=== PATIENT | male | born 1985 | race Caucasian/White ===

== ENCOUNTER 2018-05-24 06:57 | Emergency (ER) | payer MEDICAID, SELFPAY ==
[2018-05-24 06:58] VITALS: BP 105/79; PULSE 95; RESP 16; TEMP 36.2; O2SAT 100; BMI 22.5
--- NOTE | 2018-05-24 07:30 | ED.DEP ---
ED Disposition - Plan for ED Patient: Instructions: ED Sprain Strain Neck Prescriptions: Diazepam [Valium] 2 mg PO TID PRN PRN #10 tablet PRN Reason: Muscle Spasm Referrals: Barry Sellers MD [STAFF PHYSICIAN] -
--- NOTE | 2018-05-24 07:37 | ED.VISSUMM ---
- ER Visit Summary Date of Service: 05/24/18 Chief Complaint: Neck pain History of Present Illness: The patient is a 33 M presenting with right-sided neck pain. He states this has been ongoing for the past 1.5 weeks. He states he woke up with pain in the right side of his neck. He went to [facility] ED and was treated with Toradol and Valium. He was sent home with Naprosyn and a muscle relaxer. He states this is not helping his pain. He has pain that is worse with movement. It occasionally radiates to his right shoulder. Denies numbness or weakness. Denies fever or feeling ill. Denies other complaints. Physical Examination: Vitals are stable. Patient is afebrile. Alert no acute distress. HEENT exam is unremarkable. Neck is supple. No meningismus. Right paraspinal cervical muscle tenderness. No midline tenderness. Lungs are clear and equal bilaterally. Heart is regular rate and rhythm. Extremities are unremarkable. Skin is warm and dry. No focal neurologic deficit. Normal strength and sensation. Remainder of exam is unremarkable. Emergency Department Course and Treatment: Patient declined IM medication. He was given Valium p.o. He is given prescription for Valium. Advised to follow-up with Dr. Sellers avionics systems integration specialist for no doc. Advised return to ED for worsening complaints. Disposition: Discharge home Impression: Neck strain This note was generated with [employer] dictation software. It may contain incorrect words, spelling, and punctuation that were not noted in review of the chart prior to signing ED Disposition - Plan for ED Patient: Instructions: ED Sprain Strain Neck Prescriptions: Diazepam [Valium] 2 mg PO TID PRN PRN #10 tablet PRN Reason: Muscle Spasm Referrals: Barry Sellers MD [STAFF PHYSICIAN] -
--- NOTE | 2018-05-24 07:41 | ED.DCSUM_ITS ---
- ER Visit Summary Date of Service: 05/24/18 Chief Complaint: Neck pain History of Present Illness: The patient is a 33 M presenting with right-sided neck pain. He states this has been ongoing for the past 1.5 weeks. He states he woke up with pain in the right side of his neck. He went to [facility] ED and was treated with Toradol and Valium. He was sent home with Naprosyn and a muscle relaxer. He states this is not helping his pain. He has pain that is worse with movement. It occasionally radiates to his right shoulder. Denies numbness or weakness. Denies fever or feeling ill. Denies other complaints. Physical Examination: Vitals are stable. Patient is afebrile. Alert no acute distress. HEENT exam is unremarkable. Neck is supple. No meningismus. Right paraspinal cervical muscle tenderness. No midline tenderness. Lungs are clear and equal bilaterally. Heart is regular rate and rhythm. Extremities are unremarkable. Skin is warm and dry. No focal neurologic deficit. Normal strength and sensation. Remainder of exam is unremarkable. Emergency Department Course and Treatment: Patient declined IM medication. He was given Valium p.o. He is given prescription for Valium. Advised to follow- up with Dr. Sellers manager of international for no doc. Advised return to ED for worsening complaints. Disposition: Discharge home Impression: Neck strain This note was generated with [email or web address] dictation software. It may contain incorrect words, spelling, and punctuation that were not noted in review of the chart prior to signing ED Disposition - Plan for ED Patient: Instructions: ED Sprain Strain Neck Prescriptions: Diazepam [Valium] 2 mg PO TID PRN PRN #10 tablet PRN Reason: Muscle Spasm Referrals: Barry Sellers MD [STAFF PHYSICIAN] -
[2018-05-24] MEDS: diazePAM 5 MG Tablet PO (07:44)
== END 2018-05-24 08:28 | disposition home or self-care (01) ==
PROVIDERS: Emergency Provider Emergency Medicine
DX: S16.1XXA Strain of muscle, fascia and tendon at neck level, initial encounter (principal); X58.XXXA Exposure to other specified factors, initial encounter; Y93.9 Activity, unspecified; Y92.9 Unspecified place or not applicable; Y99.9 Unspecified external cause status; Z72.0 Tobacco use
CPT/HCPCS: 99283

== ENCOUNTER 2018-05-27 12:10 | Emergency (ER) | payer MEDICAID, SELFPAY ==
[2018-05-27 12:11] VITALS: BP 107/68; PULSE 128; RESP 14; TEMP 36.2; O2SAT 98; BMI 22.5
--- NOTE | 2018-05-27 12:29 | ED.DCSUM_ITS ---
- ER Visit Summary Date of Service: 05/27/18 Chief Complaint: Neck pain History of Present Illness: The patient is a 33 M who presents the emergency department with neck pain. Patient states that about 2 weeks ago he awoke in the morning with his neck feeling stiff. After a few days he went to [facility] was given naproxen and a muscle relaxer. He states that that did not help so he came to [facility] and was given a prescription for Valium. 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 He states that he has been homeless. He states that despite the pain in his neck radiating to his right arm he has been able to play the guitar. As he sits telling me his story he is opening sugar packets with the right hand without difficulty and moving his arms above his head fine. Though he states that it hurts for him to turn his head to the left and right. He notes most of the pain is on the right side of the neck. He denies any fevers. Denies any rashes. He last injected into his arms 4 days ago. Denies any history of heart murmur. Physical Examination: Afebrile vital signs are stable noted heart rate of 128 in triage however the patient states [place]. I took his p ulse myself and was 84. Gen: Well-nourished well-developed Head: Normocephalic atraumatic Eyes: Perrl EOMI ENT: TMs clear no rhinorrhea moist mucous membranes Neck: Supple no lymphadenopathy no JVD complains of tenderness to palpation along the right paracervical muscles. CVS: Regular rate rhythm no murmurs normal S1-S2 Respiratory: No distress clear to auscultation bilaterally chest nontender Abdomen: Soft nontender nondistended normal bowel sounds no masses Back: Nontender Extremity: Nontender no edema Skin: Normal color no rash Neuro: alert orientated ?3 CN II-XII intact normal strength sensation (triceps brachioradialis) reflexes gait cerebellar Psych: Normal affect normal mood Emergency Department Course and Treatment: Patient be started on ibuprofen and Flexeril. I do not think the patient has a epidural abscess. I do not think this is herniated disc given the history and physical exam though if his symptoms do not resolve would be prudent to check. I will refer him to primary care. Impression: 1. Neck muscle spasm This note was generated with [employer] dictation software. It may contain incorrect words, spelling, and punctuation that were not noted in review of the chart prior to signing ED Disposition - Plan for ED Patient: Disposition: Home or Assisted Living Instructions: Torticollis (Wry Neck) Prescriptions: Ibuprofen [Motrin] 800 mg PO TID PRN PRN #20 tab PRN Reason: Pain Cyclobenzaprine [Flexeril] 10 mg PO TID PRN #12 tab PRN Reason: Muscle Spasm Referrals: Arlin Armijo [NON-STAFF] - 1 Week if not improving
[2018-05-27 12:54] VITALS: PULSE 99; RESP 18; O2SAT 98
--- NOTE | 2018-05-27 12:55 | ED.RN ---
PT REQUESTING MEDICAL CLEARANCE FORM FOR [facility] AT DISCHARGE. PT GAVE CONSENT FOR THIS RN TO CALL [facility] AND SPEAK TO STAFF REGARDING MEDICAL CLEARANCE. THIS RN SPOKE WITH DR MAAY AT [facility], SHE STATED PT ONLY NEEDED TO BE PRESCRIBED MEDICATIONS APPROPRIATE FOR PATHWAY HOUSE AND HAVE DIAGNOSIS THAT COULD BE SAFELY MANAGED AT PATHWAY HOUSE. SHE FURTHER STATES NECK MUSCLE SPASM WITH MOTRIN AND FLEXERIL PRESCRIPTIONS ARE APPROPRIATE FOR ADMISSION TO PATHWAY HOUSE. DR MAYA STATES PT SHOULD BE INSTRUCTED TO RETURN TO [facility] WITH DISCHARGE PAPERWORK. ABOVE INFO RELAYED TO PT, HE VOICES UNDERSTANDING, LEFT DEPARTMENT.
== END 2018-05-27 12:59 | disposition home or self-care (01) ==
PROVIDERS: Emergency Provider Emergency Medicine
DX: M62.838 Other muscle spasm (principal); F11.20 Opioid dependence, uncomplicated; Z59.0 Homelessness; Z72.0 Tobacco use
CPT/HCPCS: 99282

== ENCOUNTER 2018-10-15 11:33 | Emergency (ER) | payer SELFPAY ==
[2018-10-15 11:34] VITALS: PULSE 104; RESP 18; TEMP 35.9; O2SAT 92; BMI 19.3
[2018-10-15 11:50] VITALS: BP 120/68; PULSE 100; RESP 18; O2SAT 92
--- NOTE | 2018-10-15 11:53 | US_ITS ---
STUDY: SCROTUM ULTRASOUND REASON FOR EXAM: Male, 33 years old. Left testicular pain and swelling. TECHNIQUE: Ultrasound evaluation of the scrotum was performed with color Doppler and static benitez-scale imaging. COMPARISON: None. FINDINGS: RIGHT TESTICLE INTRATESTICULAR: There is a normal size of the right testicle. The right testicle measures 5.0 cm x 2.9 cm x 2.0 cm. There is a homogenous echotexture. There is normal arterial and normal venous vascularity. There is no demonstrated right testicular mass or cyst. EXTRATESTICULAR: The epididymis is normal in size. The epididymis head measures 1 cm x 1.1 cm. There is normal vascularity of the epididymis. There is no demonstrated epididymal cystic structure. There is no demonstrated hydrocele. There is no demonstrated varicocele. There is no demonstrated extratesticular mass or cyst. LEFT TESTICLE INTRATESTICULAR: There is a normal size of the left testicle. The left testicle measures 4.2 cm x 3.3 cm x 2.6 cm. There is a homogenous echotexture. There is increased arterial and normal venous vascularity. There is no demonstrated left testicular mass or cyst. EXTRATESTICULAR: The epididymis is enlarged. The epididymis head measures 1.3 cm x 1.3 cm. There is increased (hyperemic) vascularity of the epididymis. There is no demonstrated epididymal cystic structure. There is a large hydrocele. There is no demonstrated varicocele. There is no demonstrated extratesticular mass or cyst. US/Testicular with Arterial Flow IMPRESSION: Large sized left hydrocele and findings suggestive of epididymitis. Electronically Signed: Hugo Cummins, at 13:55 EDT , Service support ,
[2018-10-15 12:13] LABS: Color, Urine Yellow (Yellow); Glucose, Dipstick Normal (Normal); Ketone-Dipstick Negative (Negative); Leukocyte Esterase-Dipstick 500 /ul (Negative); Nitrite-Dipstick Negative (Negative); Occult Blood-Urine 10 /ul (Negative); Protein-Dipstick 30 mg/dl (Negative); Urine Clarity Sl. Cloudy (Clear); Urine Urobilinogen 12 mg/dl (Normal)
[2018-10-15 12:14] LABS: Urine Bilirubin Dipstick 1 mg/dL (Negative)
[2018-10-15 12:15] LABS: Bacteria 1+ /hpf (None Seen); Mucous, Urine 1+ /hpf (<or=2+); Red Blood Cells-Urine 0-5 SEEN /hpf (0-5); Squamous Epithelial Cells - UA 0-5 SEEN /hpf (0-5)
[2018-10-15 12:18] LABS: White Blood Cells 50-100 SEEN /hpf (0-5)
[2018-10-15 12:50] LABS: Absolute Lymphocyte Count 0.88 X10^3/ul (0.83-4.51); Basophil# 0.02 X10^3/uL; Basophil% 0.3 % (0-1); Eosinophil# 0.19 X10^3/uL; Eosinophils% 2.5 % (0-5); Hematocrit 41.1 % (40-54); Hemoglobin 13.7 g/dl (13.0-16.5); Lymphocyte # 0.88 X10^3/ul (4.0); Lymphocyte % 11.4 % (19-41); Mean Corp Hgb Conc 33.3 g/gl (32-36); Mean Corpuscular Hgb 29.8 pg (27.0-32.0); Mean Corpuscular Volume 89.3 fL (80-94); Mean Platelet Vol. 9.3 fl (6.2-12.0); Monocyte# 0.61 X10^3/uL; Monocyte% 7.9 % (0-10); Neutrophil # 6.04 X10^3/uL (2.7-7.7); Neutrophil % 77.8 % (47-70); Platelet Count 251 K/mm3 (150-450); RBC Distribution Width CV 11.9 % (11.6-14.6); RBC Distribution Width SD 38.2 fl (35.1-43.9); White Blood Count 7.8 K/mm3 (4.4-11.0)
[2018-10-15] MEDS: 0.9% Normal Saline 1,000 ML 999 ML IV (12:53)
[2018-10-15] MEDS: Ketorolac 30 MG/ML Syringe IV (12:53)
[2018-10-15 12:59] LABS: POSITIVE COUNT NO; POSITIVE DIFFERENTIAL NO; POSITIVE MORPHOLOGY NO
[2018-10-15 13:03] LABS: Anion Gap 8 (5-15); BUN 10 mg/dL (7-18); BUN/Creat Ratio 10.7 RATIO (10-20); Calcium,Total 9.2 mg/dL (8.5-10.1); Chloride 102 mmol/L (98-107); Creatinine, Serum 0.93 mg/dL (0.70-1.30); EST Glomerular Filtration Rate 98 mL/min (>60); Est Glom Filt Rate - Afr Amer 118 mL/min (>60); Estimated Creatinine Clearance 110.24 ml/min; Glucose 80 mg/dL (74-106); Potassium 4.1 mmol/L (3.5-5.1); Sodium Level 141 mmol/L (136-145)
[2018-10-15 13:21] VITALS: BP 120/68; PULSE 100; RESP 18; TEMP 35.9; O2SAT 92
[2018-10-15] MEDS: Doxycycline 100 MG CAPSULE PO (14:15)
--- NOTE | 2018-10-15 14:19 | ED.VISSUMM ---
- ER Visit Summary Date of Service: 10/15/18 Chief Complaint: Testicle pain History of Present Illness: The patient is a 33 M with left testicle pain for 2 days. The pain came on gradually. He noticed testicle swelling. He denies any other symptoms like discharge or trouble urinating. Denies fever or systemic symptoms. He never had problems like this before. Denies trauma. Physical Examination: Afebrile and vital signs unremarkable. Patient is alert and oriented. Exam was chaperoned by the nurse. Patient has left testicular swelling, epididymal swelling, and left-sided scrotal swelling. Diffusely tender to palpation. Test Results: Gonorrhea and committed testing are pending. Labs unremarkable. Urinalysis shows signs of infection. Ultrasound shows large left hydrocele and epididymitis. Emergency Department Course and Treatment: Patient will be treated with ceftriaxone and doxycycline. Anti-inflammatories. Scrotal support. Follow-up with urology. Treatment Plan: As above Disposition: Discharge Impression: 1. Left hydrocele 2. Left epididymitis This note was generated with [employer] dictation software. It may contain incorrect words, spelling, and punctuation that were not noted in review of the chart prior to signing ED Disposition - Plan for ED Patient: Referrals: Care Physician,No Primary [Primary Care Provider] -
--- NOTE | 2018-10-15 14:21 | ED.DEP ---
ED Disposition - Plan for ED Patient: Instructions: Epididymitis Prescriptions: Doxycycline 100 mg PO BID 10 Days #20 cap Prescription Printed Naproxen [Naprosyn] 500 mg PO BID PRN #20 tab Prescription Printed Referrals: Ramesh Flores MD [STAFF PHYSICIAN] - Duran Cabrera MD [NON-STAFF] - As Needed
[2018-10-15 15:03] VITALS: BP 124/62; PULSE 88; RESP 18
[2018-10-15 15:03] LABS: Chlamydia Trachomatis by PCR POSITIVE (Negative); Neisserai gonorrhoeae by PCR Negative (Negative); Probe Check PASS; Sample Adequacy Control PASS; Specimen Processing Control PASS
== END 2018-10-15 15:13 ==
PROVIDERS: Emergency Provider Emergency Medicine
DX: N43.3 Hydrocele, unspecified (principal); N45.1 Epididymitis; Z72.0 Tobacco use
CPT/HCPCS: 76870; 80048; 81001; 85025; 87491; 87591; 93976; 96361; 96372; 96374; 99285; J7030; A4216; J2405

== ENCOUNTER 2019-01-05 17:15 | Emergency (ER) | payer MEDICAID, SELFPAY ==
[2019-01-05 17:15] VITALS: BP 104/77; PULSE 122; RESP 30; TEMP 38.1; O2SAT 95; BMI 24.4
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
--- NOTE | 2019-01-05 18:46 | ED.RN ---
PT REFUSES D/C VS. REPORTS NO FURTHER QUESTIONS. VERBALIZES UNDERSTANDING OF AMA PAPERS.
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
== END 2019-01-05 18:45 | disposition left against medical advice (07) ==
LOC: ED 18:00
PROVIDERS: Emergency Provider Emergency Medicine
DX: F19.10 Other psychoactive substance abuse, uncomplicated (principal); Z53.29 Procedure and treatment not carried out because of patient's decision for other reasons; Z72.0 Tobacco use
CPT/HCPCS: 99284

== ENCOUNTER 2019-02-08 01:14 | Observation (INO) | payer MEDICAID, SELFPAY ==
[2019-02-08 01:15] VITALS: BP 121/80; PULSE 102; RESP 18; TEMP 36.4; O2SAT 100
--- NOTE | 2019-02-08 01:31 | ED.VISSUMM ---
- ER Visit Summary Date of Service: 02/08/19 Chief Complaint: Requesting detox History of Present Illness: The patient is a 33 M history of drug abuse including IV methamphetamines, heroin and fentanyl. Patient states never had inpatient detox before. The last time he tried to detox himself using Suboxone he bought on the street. States his last illicit drug use was Friday morning. States he started to feel like he is going through withdrawal. He denies any fever or chills. Physical Examination: Young male no acute distress vital signs stable afebrile. Initial blood pressure is 121/80. He does not look septic or toxic. He is in no acute distress. HEENT exam pupils are unreactive light. Right eye watering. Posterior pharynx unremarkable. Neck nontender. No lymphadenopathy. Lungs clear to auscultation bilaterally. Heart regular rhythm rate about 100 no murmur. Chest were nontender. Abdomen soft nontender. Back nontender. Patient is moving all 4 extremities. Neurovascularly intact. He has checked in both antecubital areas. No abscesses. No cellulitis. He is awake and alert. Test Results: None Emergency Department Course and Treatment: Patient requesting detox. Treatment Plan: [] Disposition: Admission for detox Impression: Requesting detox History of IV fentanyl, heroin and methamphetamine abuse This note was generated with [employer] dictation software. It may contain incorrect words, spelling, and punctuation that were not noted in review of the chart prior to signing ED Disposition - Plan for ED Patient: Referrals: Care Physician,No Primary [Primary Care Provider] -
--- NOTE | 2019-02-08 02:01 | ED.RN ---
ATTEMPTED TO CONTACT CORRECTIONAL THERAPY DIRECTOR FOR M-S3 TO SEE IF THIS PT CAN COME UP, NO REPLY GIVEN. 

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
[2019-02-08 02:22] VITALS: BMI 19.5
[2019-02-08 02:34] VITALS: BP 121/76; PULSE 86; RESP 18; TEMP 37; O2SAT 97
[2019-02-08] MEDS: Pramipexole Di-HCl 0.25 MG Tablet PO (02:58)
[2019-02-08] MEDS: Acetaminophen 325 MG Tablet 650 MG PO (02:58)
[2019-02-08] MEDS: Buprenorphine HCl 2 MG TAB.SUBL SL ×3 (02:58→19:01)
[2019-02-08] MEDS: Methocarbamol 750 MG Tablet PO (02:58)
[2019-02-08] MEDS: hydrOXYzine PAM 25 MG Capsule 50 MG PO (02:58)
[2019-02-08] MEDS: cloNIDine HCl 0.1 MG Tablet PO ×3 (02:58→22:35)
[2019-02-08 03:12] VITALS: PULSE 86; RESP 18; O2SAT 97
--- NOTE | 2019-02-08 07:36 | PN_ITS ---
Patient Problems: Active and Suspected Problems (Last Updated 02/08/19 @ 02:50 by Sushil Zhang MD) Polysubstance (including opioids) dependence with physiological dependence (Acute) Withdrawal from opioids (Acute) Methamphetamine dependence (Acute) Subjective: The patient is a 33-year-old homeless male with a past medical history of polysubstance abuse including heroin, fentanyl and methamphetamine and tobacco dependence who presented to the ED at [facility] on 02/08/2019 stating he felt like he was in withdrawal. His last use of intravenous opiates was 24 hours prior to admission. He had never been in a detox program or had counseling for his illicit drug use and he was requesting admission for medical stabilization for acute opiate withdrawal. Physical exam was remarkable for dried blood in both nares, a scratch on his nose and injection of both conjunctiva, right greater than left. There was watery discharge from the right eye. He was admitted to the hospital and the protocol for acute opiate withdrawal was initiated. He is very sleepy today and keeps nodding off while I talk with him. He does not recall ever having a hepatitis panel or HIV. No significant weight loss recently. Denies cough or diarrhea. No nausea, abdominal pain, diarrhea today. He is having some sweats. Does not have a plan for DC. He is homeless. - Physical Exam Vitals/I&O's: Vital Signs Temp Pulse Resp BP Pulse Ox 98.6 F 86 18 121/76 H 97 02/08/19 02:34 02/08/19 03:12 02/08/19 03:12 02/08/19 02:34 02/08/19 03:12 Oxygen Delivery Method Room Air Weight: 156 lb 1.396 oz Body Mass Index (BMI) 19.5 Intake and Output for Last 24 Hours 02/07/19 02/07/19 02/08/19 00:59 23:59 23:59 Intake Total 440 / 440 Balance 440 / 440 General: Cooperative, No apparent distress, Well developed, Lethargic HEENT: Atraumatic, PERRLA, EOMI, Normocephalic Oral: Dry Mucosa Neck: Supple, Trachea Midline Lungs: Clear to auscultation Cardiovascular: Regular rate, Regular Rhythm, Normal S1, Normal S2, No murmurs, No rub noted, No Gallop Abdomen: Bowel Sounds Present, Soft, Non Tender, Non-Distended, - - No guarding with palpation. No masses. Extremities: No clubbing, No cyanosis, No edema Skin: No rashes, No breakdown, - - no evidence of abscess Musculoskeletal: No Muscle Wasting Neurological: Cranial nerves II-XII grossly intact, Neuro grossly intact Psych/Mental Status: Normal Affect, Appropriate Current Medications Acetaminophen (Tylenol) 650 mg PO Q6H PRN PRN PRN Reason: Pain Score 1-10/Temp > 100.7 F Last Admin: 02/08/19 02:58 Dose: 650 mg Documented by: Buprenorphine HCl (Buprenorphine Hcl) 4 mg SL Q8H DI; Taper Stop: 02/11/19 06:44 Last Admin: 02/08/19 02:58 Dose: 4 mg Documented by: Clonidine (Catapres) 0.1 mg PO Q2H PRN PRN PRN Reason: Hot/Cold Sweats or Anxiety Last Admin: 02/08/19 02:58 Dose: 0.1 mg Documented by: Dextrose (D50w Syringe) 0 gm IV X1 PRN; Protocol PRN Reason: Hypoglycemia Dicyclomine HCl (Bentyl) 20 mg PO Q6H PRN PRN PRN Reason: Abdomnial Discomfort Glucagon () 1 mg IM .X1 PRN PRN Reason: Hypoglycemia Hydroxyzine HCl (Vistaril Vial) 50 mg IM Q6H PRN PRN PRN Reason: Breakthrough Anxiety Hydroxyzine Pamoate (Vistaril Pamoate Capsule) 50 mg PO Q6H PRN PRN PRN Reason: Mild Anxiety Last Admin: 02/08/19 02:58 Dose: 50 mg Documented by: Sodium Chloride () 250 mls @ 15 mls/hr IV .[id number] PRN PRN Reason: Saline Flush Methocarbamol (Methocarbamol) 750 mg PO Q6H PRN PRN PRN Reason: Muscle Aches Last Admin: 02/08/19 02:58 Dose: 750 mg Documented by: Nutritional Formula (Lactose Free) (Ensure Enlive) 120 ml PO 4X/DAY [facility] Ondansetron HCl (Zofran) 4 mg IV Q8H PRN PRN PRN Reason: NAUSEA/VOMITING Pramipexole Dihydrochloride (Mirapex) 0.25 mg PO Q12H PRN PRN PRN Reason: Restless Legs Last Admin: 02/08/19 02:58 Dose: 0.25 mg Documented by: Senna/Docusate Sodium (Senokot-S, Hanna-Colace) 2 tablet PO BID PRN PRN PRN Reason: Constipation Sodium Chloride () 10 - 40 ml IV UD PRN PRN Reason: SALINE FLUSH Medical Necessity - Tobacco Use Smoking Status: Current every day smoker Tobacco Use: Cigarettes, - Assessment/Plan All Active Problems (Last Updated 02/08/19 @ 02:50 by Sushil Zhang MD) Polysubstance (including opioids) dependence with physiological dependence (Acute) Withdrawal from opioids (Acute) Methamphetamine dependence (Acute) Impressions 1. Acute opiate withdrawal. Continue protocol. Pt is currently stable 2. polysubstance abuse - IV Heroin, Fentanyl and methamphetamine 3. tobacco dependence 4. mildly increased transaminases -HIV is negative and the hepatitis panel is pending. When he is more alert and better able to stay awake will discuss options for tx of Opiate abuse.
[2019-02-08 08:27] LABS: Hemoglobin 13.4 g/dL (13.0-16.5); Mean Corp Hgb Conc 33.5 g/dL (32-36); Mean Corpuscular Hgb 31.2 pg (27.0-32.0); Mean Corpuscular Volume 93.2 fL (80-94); Mean Platelet Vol. 10.3 fl (6.2-12.0); Platelet Count 238 K/mm3 (150-450); RBC Distribution Width CV 11.9 % (11.6-14.6); RBC Distribution Width SD 40.4 fl (35.1-43.9); Red Blood Count 4.29 M/mm3 (4.6-6.2)
[2019-02-08 08:40] VITALS: BP 108/53; PULSE 50; RESP 16; TEMP 36.6; O2SAT 100
[2019-02-08 08:53] LABS: ALB/GLOB Ratio 0.7 RATIO (0.9-2.4); AST(SGOT) 38 U/L (15-37); Alanine Aminotransfer ALT/SGPT 63 U/L (16-61); Albumin, Serum 2.8 g/dL (3.2-5.0); Alkaline Phosphatase 85 U/L (45-117); Anion Gap 7 (5-15); BUN 9 mg/dL (7-18); BUN/Creat Ratio 10.6 RATIO (10-20); Calcium,Total 8.6 mg/dL (8.5-10.1); Chloride 105 mmol/L (98-107); Creatinine, Serum 0.85 mg/dL (0.70-1.30); EST Glomerular Filtration Rate 108 mL/min (>60); Est Glom Filt Rate - Afr Amer 131 mL/min (>60); Estimated Creatinine Clearance 121.47 ml/min; Globulin 4.1 g/dL (2.2-4.2); Glucose 96 mg/dL (74-106); Phosphorus 4.9 mg/dL (2.5-4.9); Potassium 3.8 mmol/L (3.5-5.1); Protein, Total 6.9 g/dL (6.4-8.2); Sodium Level 140 mmol/L (136-145)
[2019-02-08 09:47] LABS: HIV - WCH Non-Reactive (Nonreactive)
--- NOTE | 2019-02-08 10:38 | CASEMGMT ---
Addendum entered by Shirley Head 02/08/19 14:16: SW again attempted to speak with pt. Pt still sleepy and couldn't keep eyes open during conversation. Pt did state he has been thinking about going to counseling. SW informed pt that this worker will follow up with pt tomorrow to discuss treatment options. SW provided pt with packet of treatment options. SW to follow up with pt tomorrow. Original Note: Social Work Note Per notes, pt is sleepy today and kept nodding off during conversation with physician. SW attempted to meet with pt. Pt is soundly sleeping, didn't awake when this worker entered the room. SW will meet with pt to discuss treatment options once pt is more alert and awake. Shirley Head WARM IN WORKER, PRODUCT MARKETING CONSULTANT
[2019-02-08 13:34] VITALS: BP 108/58; PULSE 55; RESP 16; TEMP 36.6; O2SAT 97
[2019-02-08 23:00] VITALS: BP 100/62; PULSE 68; RESP 18; TEMP 36.9; O2SAT 96
[2019-02-09] MEDS: Buprenorphine HCl 2 MG TAB.SUBL SL ×3 (02:43→17:56)
[2019-02-09 02:45] VITALS: BP 100/57; PULSE 58; RESP 20; TEMP 37.4; O2SAT 95
[2019-02-09 05:06] LABS: HEPATITIS B SURFACE AG Negative (Negative); Hepatitis A AB, Total Negative (Negative); Hepatitis A IgM Antibody Negative (Negative); Hepatitis B Core AB IgM Negative (Negative); Hepatitis C Ab >11.0 s/co ratio (0.0-0.9)
[2019-02-09 07:39] VITALS: BP 102/54; PULSE 84; RESP 16; TEMP 37.2; O2SAT 98
[2019-02-09 08:19] LABS: Hep B Surface Antibodies Reactive (.)
[2019-02-09 08:21] LABS: Hepatitis B Core Ab Total Positive (Negative)
--- NOTE | 2019-02-09 09:56 | CASEMGMT ---
Addendum entered by Shirley Head 02/09/19 13:12: SW met with pt. Pt is more alert now and able to hold a conversation with this worker. Pt states that he is doing better than yesterday. SW asked pt if he had chance to review list of treatment facilities. Pt states I want to review the list more. Pt states that he hopes to get out of [facility]. Pt states that he is homeless and that he has been to [facility] before but is not able to return. SW informed pt that if he decides on an agency and they need clinicals faxed to let this worker know and this worker can fax clinicals. Pt states understanding, again states that he would like to review list of treatment options. Original Note: Social Work Note SW attempted to meet with pt to discuss discharge plans. Pt is soundly sleeping and didn't wake up when this worker entered pt's room. SW will attempt to speak with pt later today. Shirley Head EXPERIMENTAL DISPLAY BUILDER, ENVIRONMENTAL SERVICES ATTENDANT
[2019-02-09] MEDS: cloNIDine HCl 0.1 MG Tablet PO (13:58)
[2019-02-09 14:00] VITALS: BP 115/66; PULSE 73; RESP 16; TEMP 37.2; O2SAT 95
--- NOTE | 2019-02-09 18:37 | PCM.PROGNOTE ---
Patient Problems: Active and Suspected Problems (Last Updated 02/08/19 @ 02:50 by Sushil Zhang MD) Polysubstance (including opioids) dependence with physiological dependence (Acute) Withdrawal from opioids (Acute) Methamphetamine dependence (Acute) Subjective: All events of the past 24 hours been reviewed. Afebrile. Vital signs stable. He is 95 to 98% saturated on room air. Hepatitis panel is positive for hepatitis B core total antibody but negative for hepatitis B core IgM antibody. Hepatitis C antibody is greater than 11. Hepatitis A was negative. Doing much better today. He still complains of some anxiety but has had no nausea, vomiting, diarrhea, abdominal pain. He is much more alert today and able to converse with me. - Physical Exam Vitals/I&O's: Vital Signs Temp Pulse Resp BP Pulse Ox 99 F 73 16 115/66 95 02/09/19 14:00 02/09/19 14:00 02/09/19 14:00 02/09/19 14:00 02/09/19 14:00 Oxygen Delivery Method Room Air Weight: 156 lb 1.396 oz Body Mass Index (BMI) 19.5 Intake and Output for Last 24 Hours 02/07/19 02/08/19 02/09/19 23:59 23:59 23:59 Intake Total 440 / 940 1949 Balance 440 / 940 1949 General: Alert, Oriented x3, Cooperative, No apparent distress Neck: Supple, Trachea Midline Lungs: Clear to auscultation Cardiovascular: Regular rate, Regular Rhythm, Normal S1, Normal S2, No murmurs, No Gallop Abdomen: Bowel Sounds Present, Soft, Non Tender, Non-Distended Skin: No rashes Psych/Mental Status: Normal Affect, Appropriate Laboratory Results 02/08/19 08:10: Hepatitis A IgM Ab Negative, Hepatitis A Ab Total Negative, Hep Bs Antigen Negative, Hep B Core Total Ab Positive H, Hep B Core IgM Ab Negative, Hepatitis C Ab Confirm >11.0 H Current Medications Acetaminophen (Tylenol) 650 mg PO Q6H PRN PRN PRN Reason: Pain Score 1-10/Temp > 100.7 F Last Admin: 02/08/19 02:58 Dose: 650 mg Documented by: Buprenorphine HCl (Buprenorphine Hcl) 2 mg SL Q8H DI; Taper Stop: 02/11/19 06:44 Last Admin: 02/09/19 17:56 Dose: 2 mg Documented by: Clonidine (Catapres) 0.1 mg PO Q2H PRN PRN PRN Reason: Hot/Cold Sweats or Anxiety Last Admin: 02/09/19 13:58 Dose: 0.1 mg Documented by: Dextrose (D50w Syringe) 0 gm IV X1 PRN; Protocol PRN Reason: Hypoglycemia Dicyclomine HCl (Bentyl) 20 mg PO Q6H PRN PRN PRN Reason: Abdomnial Discomfort Glucagon () 1 mg IM .X1 PRN PRN Reason: Hypoglycemia Hydroxyzine HCl (Vistaril Vial) 50 mg IM Q6H PRN PRN PRN Reason: Breakthrough Anxiety Hydroxyzine Pamoate (Vistaril Pamoate Capsule) 50 mg PO Q6H PRN PRN PRN Reason: Mild Anxiety Last Admin: 02/08/19 02:58 Dose: 50 mg Documented by: Sodium Chloride () 250 mls @ 15 mls/hr IV .[id number] PRN PRN Reason: Saline Flush Methocarbamol (Methocarbamol) 750 mg PO Q6H PRN PRN PRN Reason: Muscle Aches Last Admin: 02/08/19 02:58 Dose: 750 mg Documented by: Nutritional Formula (Lactose Free) (Ensure Enlive) 120 ml PO 4X/DAY DI Last Admin: 02/09/19 17:19 Dose: 120 ml Documented by: Ondansetron HCl (Zofran) 4 mg IV Q8H PRN PRN PRN Reason: NAUSEA/VOMITING Pramipexole Dihydrochloride (Mirapex) 0.25 mg PO Q12H PRN PRN PRN Reason: Restless Legs Last Admin: 02/08/19 02:58 Dose: 0.25 mg Documented by: Senna/Docusate Sodium (Senokot-S, Hanna-Colace) 2 tablet PO BID PRN PRN PRN Reason: Constipation Sodium Chloride () 10 - 40 ml IV UD PRN PRN Reason: SALINE FLUSH Medical Necessity - Tobacco Use Smoking Status: Current every day smoker Tobacco Use: Cigarettes, - Assessment/Plan All Active Problems (Last Updated 02/08/19 @ 02:50 by Sushil Zhang MD) Polysubstance (including opioids) dependence with physiological dependence (Acute) Withdrawal from opioids (Acute) Methamphetamine dependence (Acute) Impressions 1. Acute opiate withdrawal. Continue protocol. Pt is currently stable and much more alert and able to converse with me today. 2. polysubstance abuse - IV Heroin, Fentanyl and methamphetamine 3. tobacco dependence - smoking cessation advised 4. mildly increased transaminases -HIV is negative and the hepatitis panel + for hep B and Hep C continue the opiate withdrawal protocol. He was given a list of inpt and OP drug rehab programs to review. The patient was informed of his positive hep B and positive hep C lab tests. He was informed that he will need to demonstrate that he has been clean and sober for at least 6 months prior to being treated with antivirals. I made him aware today that the best chance he has for excess full drug rehab is to go for an inpatient program. He is considering his options and will review the list of local programs for drug rehabilitation tonight. Will meet with him of the social insurance administrator again in the morning. He was told that hepatitis B and hepatitis C are both transmitted in blood products and through sex. He was advised to always use condoms and to inform his sexual partners that he is positive for hep C and hep B. Code Visit Inpatient E&M: 27508 Subs Hosp L2
[2019-02-09 20:05] VITALS: BP 115/66; PULSE 73; RESP 16; TEMP 37.2; O2SAT 95
[2019-02-09 22:45] VITALS: BP 95/64; PULSE 65; RESP 16; TEMP 37.1; O2SAT 95
[2019-02-10 04:45] VITALS: BP 95/63; PULSE 69; RESP 16; TEMP 36.7; O2SAT 93
[2019-02-10] MEDS: Buprenorphine HCl 2 MG TAB.SUBL SL ×2 (06:34→17:56)
[2019-02-10 07:38] VITALS: O2SAT 91
--- NOTE | 2019-02-10 07:53 | PN_ITS ---
Patient Problems: Active and Suspected Problems (Last Updated 02/08/19 @ 02:50 by Sushil Zhang MD) Polysubstance (including opioids) dependence with physiological dependence (Acute) Withdrawal from opioids (Acute) Methamphetamine dependence (Acute) Subjective: Afebrile, vital signs stable He is ill tempered and when I told him he would be discharged tomorrow for intake at [facility] he became angry and stated that that does not mean they would take me........I told him we have no control over what [facility] does.......apparently he was there in the past and there were problems. He did not review the list of rehab options given to him by the social media director yesterday so the SW had to call places for him. He takes no responsibility for himself. He has not been out of bed since he got here and every time I enter his room he is sleeping. He told the he is not interested in a [facility] based program. He is also not interested in making phone calls for himself. Many of the rehab facilities say the pt must call for himself. [facility] will do a phone call with the patient at 10 AM in the morning but they are not sure that they will take him in their program since there have been problems with this pt in the past. If he is discharged prior to 10 AM he can go strqight to [facility] and intake.....no guarantee he will be accepted to their program. - Physical Exam Vitals/I&O's: Vital Signs Temp Pulse Resp BP Pulse Ox 98.1 F 69 16 95/63 93 02/10/19 04:45 02/10/19 04:45 02/10/19 04:45 02/10/19 04:45 02/10/19 04:45 Oxygen Delivery Method Room Air Weight: 156 lb 1.396 oz Body Mass Index (BMI) 19.5 Intake and Output for Last 24 Hours 02/08/19 02/09/19 02/10/19 23:59 23:59 23:59 Intake Total 440 / 940 1950 / 2350 600 / 600 Balance 440 / 940 1950 / 2350 600 / 600 General: - - Sleeping when I entered his room and I called his name and turned on the light and he was quite angry that I turned on the light. Tells me that he is sleepy and somewhat shaky. HEENT: Atraumatic, PERRLA Oral: Moist Mucosa Neck: Supple Lungs: Clear to auscultation Cardiovascular: Regular rate, Regular Rhythm Abdomen: Bowel Sounds Present, Soft, Non-Distended Extremities: No edema Skin: - - he is sweaty. Neurological: Cranial nerves II-XII grossly intact, Neuro grossly intact Psych/Mental Status: - - rude, inappropriate, not motivated to make any phone calls to help himself Laboratory Results 02/08/19 08:10: Hepatitis A IgM Ab Negative, Hepatitis A Ab Total Negative, Hep Bs Antigen Negative, Hep B Core Total Ab Positive H, Hep B Core IgM Ab Negative, Hepatitis C Ab Confirm >11.0 H Current Medications Acetaminophen (Tylenol) 650 mg PO Q6H PRN PRN PRN Reason: Pain Score 1-10/Temp > 100.7 F Last Admin: 02/08/19 02:58 Dose: 650 mg Documented by: Buprenorphine HCl (Buprenorphine Hcl) 2 mg SL Q12H DI; Taper Stop: 02/11/19 06:44 Last Admin: 02/10/19 06:34 Dose: 2 mg Documented by: Clonidine (Catapres) 0.1 mg PO Q2H PRN PRN PRN Reason: Hot/Cold Sweats or Anxiety Last Admin: 02/09/19 13:58 Dose: 0.1 mg Documented by: Dextrose (D50w Syringe) 0 gm IV X1 PRN; Protocol PRN Reason: Hypoglycemia Dicyclomine HCl (Bentyl) 20 mg PO Q6H PRN PRN PRN Reason: Abdomnial Discomfort Glucagon () 1 mg IM .X1 PRN PRN Reason: Hypoglycemia Hydroxyzine HCl (Vistaril Vial) 50 mg IM Q6H PRN PRN PRN Reason: Breakthrough Anxiety Hydroxyzine Pamoate (Vistaril Pamoate Capsule) 50 mg PO Q6H PRN PRN PRN Reason: Mild Anxiety Last Admin: 02/08/19 02:58 Dose: 50 mg Documented by: Sodium Chloride () 250 mls @ 15 mls/hr IV .[id number] PRN PRN Reason: Saline Flush Methocarbamol (Methocarbamol) 750 mg PO Q6H PRN PRN PRN Reason: Muscle Aches Last Admin: 02/08/19 02:58 Dose: 750 mg Documented by: Nutritional Formula (Lactose Free) (Ensure Enlive) 120 ml PO 4X/DAY DI Last Admin: 02/09/19 22:45 Dose: 120 ml Documented by: Ondansetron HCl (Zofran) 4 mg IV Q8H PRN PRN PRN Reason: NAUSEA/VOMITING Pramipexole Dihydrochloride (Mirapex) 0.25 mg PO Q12H PRN PRN PRN Reason: Restless Legs Last Admin: 02/08/19 02:58 Dose: 0.25 mg Documented by: Senna/Docusate Sodium (Senokot-S, Hanna-Colace) 2 tablet PO BID PRN PRN PRN Reason: Constipation Sodium Chloride () 10 - 40 ml IV UD PRN PRN Reason: SALINE FLUSH Medical Necessity - Tobacco Use Smoking Status: Current every day smoker Tobacco Use: Cigarettes, - Assessment/Plan All Active Problems (Last Updated 02/08/19 @ 02:50 by Sushil Zhang MD) Polysubstance (including opioids) dependence with physiological dependence (Acute) Withdrawal from opioids (Acute) Methamphetamine dependence (Acute) Impressions 1. Acute opiate withdrawal. Continue protocol. He was much more alert and conversant on 02/09/2019. Today he is sleepy, rude, grumpy and inappropriate.. 2. polysubstance abuse - IV Heroin, Fentanyl and methamphetamine 3. tobacco dependence - smoking cessation advised 4. mildly increased transaminases -HIV is negative and the hepatitis panel + for hep B and Hep C continue the opiate withdrawal protocol. He was given a list of inpt and OP drug rehab programs to review. He did not review the list and he mad no phone calls. The SW has been doing all the phone calls for him Plan on phone call with [facility] tomorrow at 10 AM so they can decide whether they will take him again given the problems with him at [facility] in the past. suboxone taper will be up tomorrow. If he has taken no steps to make phone calls to get himself on a waiting list and not willing to go to inpt facilities that will take him and his insurance will need to DC. ? why he is less laert and more sleepy today.....also more sweaty? Code Visit Inpatient E&M: 84395 Subs Hosp L2
[2019-02-10 08:52] VITALS: BP 107/75; PULSE 95; RESP 16; TEMP 36.9; O2SAT 94
--- NOTE | 2019-02-10 10:02 | NURSING ---
Pt moved from room 309 to provide room for surgery rooms needed form [facility]-
--- NOTE | 2019-02-10 10:54 | CASEMGMT ---
SW spoke w/pt in room in regard to discharge plan and whether or not he has reviewed the list given to him by the SW yesterday of programs for substance abuse. Pt states he has been sleeping a lot and sweating a lot, has not had a chance to review the list. Pt is open to this SW calling places for him to check on bed availability. SW did reiterate that unfortunately there is no guarantee of finding a bed, but SW will look into it for him. SW spoke w/pt about his substance abuse. Pt states uses fentanyl, amphetamines, heroin and marijuana. Pt states last used about two days ago. Pt denies having any formal mental health diagnoses, but admits to feeling down. Pt is homeless, has been homeless for a couple years, pt was not able to give SW any more specific time line. In regard to past treatment for substance abuse, pt was in [facility] in May but once left had no place to go and has been living on the streets. Pt uses his grandmother's address for a mailing address but does not stay there. Pt has nobody who he identifies as a support to him. SW explained will make some calls and if there are any beds available then SW will likely need to put pt in touch with the facility. Pt states understanding. SW called: 1. [facility], they do not take pt's insurance 2. [facility], message left 3. [facility] [place], no beds for 1-2 weeks 4. [facility], no male bed availability 5. [facility], message left 6. [facility], they do not offer residential, only detox and IOP 7. [facility]--directed to their inpt residence [facility] 8. [facility], message left 9. [facility], they only take [facility] residents 10. [facility], do not take Medicaid [facility]. [facility] [place], message left SW learned from [facility] 12. [facility] may have a bed, it is in [place]. SW asked pt, he is not interested in [facility]. SW let pt know that SW has called 11 places, waiting for a few calls back but have gotten some no's already due to bed availability, etc. Pt states understanding. SW will continue to try to find a place for pt to go at discharge. DAKOTA Castañeda
--- NOTE | 2019-02-10 11:34 | CASEMGMT ---
Addendum entered by Tana Lim 02/10/19 12:10: SW called [facility], initial information taken and Thomas Wills is to call SW back for further information. DAKOTA Castañeda Addendum entered by Tana Lim 02/10/19 12:01: SW received call back from Theresa at . She states that the patients do not detox long enough here so pt would need to go into their detox initially, and then to the residential program. She states they will not have any availability in their detox until the weekend, advised to call their sister facility, [facility]. SW called 17. [facility]. Though they have openings in the detox, they have no availability in their residential program. JESUS called Theresa at [facility], left a message and faxed clinical for her review, to see if they would take pt, and to let SW know exactly about bed availability. JESUS will continue to follow. DAKOTA Castañeda Original Note: JESUS called [facility]. [facility], message left for Sia to call this SW back with any options she may be aware of for pt. 14. [facility], they do not take [facility] for his type of detox, insurance will not cover it. 15. [facility], there is a two week wait and pt would need to call himself 16. [facility], there is a 70 person wait list and pt would need to call himself JESUS still waiting for calls back, will give pt information facilities with wait lists and numbers to call if he would like to be put on the list. DAKOTA Castañeda
[2019-02-10 13:36] VITALS: BP 158/139; PULSE 97; RESP 18; TEMP 36.7; O2SAT 96
--- NOTE | 2019-02-10 13:38 | CASEMGMT ---
Sia from called this SW back, she states that they actually have a couple of beds in [facility]. SW explained will speak w/pt, he has been to [facility] in the past and initially had said he did not want to stay in [facility]. SW spoke w/pt, inquired about returning to [facility]. Pt states that things did not end well there. Upon further discussion however, if they have an opening and would take pt back he states would actually return. SW explained will call, he signed a consent form for SW to speak w/ [facility] in regard to pt. SW explained will let him know though what [facility] says, though it may not be until tomorrow. Pt states understanding. SW also gave pt a list of three places, [facility], [facility], and [facility]. SW encouraged him to call these facilities as they all have wait lists, to get his name on the list. SW offered to fax clinicals to [facility], pt wants to wait on that, as he wants to first see if [facility] will take him back. SW let him know a referral was sent to [facility], and SW is waiting to hear back from them as well. Pt states understanding. SW called [facility], faxed release, and spoke again w/Sia in regard to pt. She states she will need to bring this pt to the team and if they will reconsider taking him again will need to do an assessment via phone. This SW is leaving shortly, SW gave her SW Shirley Head' number to call after this SW leaves, to get in touch w/pt. JESUS let Shirley know via voice mail she may get a message, and will follow up w/pt tomorrow. DAKOTA Castañeda
[2019-02-10] MEDS: Acetaminophen 325 MG Tablet 650 MG PO (13:40)
[2019-02-10] MEDS: cloNIDine HCl 0.1 MG Tablet PO (13:40)
[2019-02-10] MEDS: hydrOXYzine PAM 25 MG Capsule 50 MG PO ×2 (13:40→20:57)
--- NOTE | 2019-02-10 15:07 | CASEMGMT ---
Addendum entered by Jennifer Davis 02/10/19 17:07: PATIENT UPDATED ON PLAN FOR ASSESSMENT WITH [facility] TOMORROW. Original Note: Social Work Note SW received call from Sia ([phone]) at [facility] stating they will have a counselor available tomorrow at 10:00am to complete phone interview with pt. JESUS spoke with physician who states pt will be medically cleared for discharge tomorrow. JESUS updated Sia that discharge is tomorrow. Sia states that they don't take admissions after 1:00pm. Sia confirms that she will have a counselor available tomorrow at 10:00am to complete phone interview but states if pt is discharged before 10:00am pt can go straight to [facility] from [facility] to be assessed. JESUS updated Sia that Tana DUNCAN is back tomorrow morning at 8:00am and this worker will update her and then have Tana call Sia FLEMINGP. Sia asked for H+P to be faxed to [phone]. JESUS faxed clinicals to [facility]. Tana CONDES has left for the day but this worker will update JESUS on floor tomorrow. Plan: Pt is to be assessed by [facility] tomorrow. If pt is discharged before 10:00am pt can go straight to [facility] to be assessed, if pt is still at [facility] at 10:00am a counselor from [facility] will be available to asses pt via phone. Shirley Head INSURANCE UNDERWRITER SALES, VICE PRESIDENT OF SOFTWARE ENGINEERING
[2019-02-10 17:29] VITALS: BP 120/50; PULSE 64; RESP 16; TEMP 36.8; O2SAT 97
[2019-02-10 20:55] VITALS: BP 126/74; PULSE 60; RESP 16; TEMP 36.9; O2SAT 94
[2019-02-11 03:25] VITALS: BP 101/60; PULSE 57; RESP 16; TEMP 36.7; O2SAT 95
[2019-02-11 06:58] VITALS: O2SAT 92
--- NOTE | 2019-02-11 09:14 | CASEMGMT ---
Addendum entered by Tana Lim 02/11/19 10:07: SW called [facility], they cannot be here for another 20 minutes. SW called [facility] and let Sia know, she states understanding. DAKOTA Castañeda Addendum entered by Tana Lim 02/11/19 09:25: Physician wrote for pt's discharge. SW spoke w/med surg manager strategic sourcing Roslyn, she is agreeable to sending pt to [facility] on a taxi voucher. SW called [facility], they will be here in 30-45 minutes, will call nurse's station when the taxi is here. SW let pt know that SW called for a taxi, they will be here in 30-45 minutes to pick him up, we will let him know when it's here. SW explained will also call [facility] and let them know pt may be there a few minutes after 10am. SW called [facility], spoke w/Sia. SW let her know that pt is discharged and a taxi was called, but he may be there a few minutes after 10 am. Sia states that is fine. Also, [facility] did leave a message, SW called back and let Theresa know that pt has a place to go today. Castro from [facility] also called and said that they have a 1-2 week wait list. No further needs, pt to [facility] today for an assessment and possible acceptance to [facility]. DAKOTA Castañeda Original Note: Physician is planning to discharge pt to [facility] today. SW spoke w/pt, he wants to leave now and walk to [facility], he is aware his appt is at 10am. JESUS explained if the physician is not able to discharge him in time we can set up a phone assessment w/[facility], SW encouraged pt to stay and wait for discharge instructions. Pt states understanding but did go out to smoke. Physician is working on instructions, once completed SW will call for a taxi. JESUS did also leave Sia at [facility] a message stating we are trying to get pt out and there by 10am, and if not asked for a call back as to who he should speak w/via phone at 10am and how to make that happen. Plan: Assessment with [facility], either in person or on the phone at 10am. DAKOTA Castañeda
--- NOTE | 2019-02-11 09:15 | DCINST_ITS ---
- Discharge Diagnoses Current Active Problems: Current Active and Chronic Problems (Last Updated 02/08/19 @ 02:50 by Sushil Zhang MD) Polysubstance (including opioids) dependence with physiological dependence (Acute) Withdrawal from opioids (Acute) Methamphetamine dependence (Acute) You will use the following diet at home:: No restrictions Your food should be the consistency of: Regular Your liquids should be the consistency of: Regular/Thin Discharge Activity: Return to Normal Activity Call your doctor if you observe: Fever of 101 or Higher, - - dark urine, jaundice, abdominal pain Allergies/Adverse Reactions: Allergies No Known Allergies Allergy (Verified 01/05/19 17:20) Medications to take at Discharge NK 02/08/19 Primary Care Physician: Care Physician,No Primary [Primary Care Provider] - Test Results: Test results from this visit will be discussed in further detail at your follow- up appointment, if applicable. Proposed Discharge Date: 02/11/19
--- NOTE | 2019-02-11 09:17 | PCM.DC.SUM ---
Discharge Date and Diagnosis - Problem List Patient Problems: Active and Suspected Problems (Last Updated 02/08/19 @ 02:50 by Sushil Zhang MD) Tobacco dependence (Acute) Withdrawal from opioids (Acute) Date of Admission: 02/08/19 Date of Discharge: 02/11/19 - Primary Discharge Diagnosis Active and Suspected Problems (Last Updated 02/08/19 @ 02:50 by Sushil Zhang MD) Withdrawal from opioids (Acute) Transaminitis Severe malnutrition - Secondary Discharge Diagnosis Chronic Problems (Last Updated 02/08/19 @ 02:50 by Sushil Zhang MD) Hepatitis C (Chronic) Hepatitis B (Chronic) Polysubstance (including opioids) dependence with physiological dependence (Chronic) Methamphetamine dependence (Chronic) Tobacco dependence (Acute) Lack of desire to manage self care Hospital Course and Treatment Imaging Results: Laboratory Tests 02/08/19 02/08/19 02/08/19 Range/Units 08:10 08:10 08:10 WBC (4.4-11.0) K/mm3 RBC (4.6-6.2) M/mm3 Hgb (13.0-16.5) g/dL Hct (40-54) % MCV (80-94) fL MCH (27.0-32.0) pg MCHC (32-36) g/dL RDW Std Deviation (35.1-43.9) fl RDW Coeff of Clement (11.6-14.6) % Plt Count (150-450) K/mm3 MPV (6.2-12.0) fl Sodium 140 (136-145) mmol/L Potassium 3.8 (3.5-5.1) mmol/L Chloride 105 (98-107) mmol/L Carbon Dioxide 28.0 (21.0-32.0) mmol/L Anion Gap 7 (5-15) BUN 9 (7-18) mg/dL Creatinine 0.85 (0.70-1.30) mg/dL Estim Creat Clear Calc 121.47 ml/min Est GFR (MDRD) Af Amer 131 (>60) mL/min Est GFR (MDRD) Non-Af 108 (>60) mL/min BUN/Creatinine Ratio 10.6 (10-20) RATIO Glucose 96 (74-106) mg/dL Calcium 8.6 (8.5-10.1) mg/dL Phosphorus 4.9 (2.5-4.9) mg/dL Magnesium 2.0 (1.6-2.6) mg/dL Total Bilirubin 0.40 (0.20-1.00) mg/dL AST 38 H (15-37) U/L ALT 63 H (16-61) U/L Alkaline Phosphatase 85 (45-117) U/L Total Protein 6.9 (6.4-8.2) g/dL Albumin 2.8 L (3.2-5.0) g/dL Globulin 4.1 (2.2-4.2) g/dL Albumin/Globulin Ratio 0.7 L (0.9-2.4) RATIO Hepatitis A IgM Ab Negative (Negative) Hepatitis A Ab Total Negative (Negative) Hep Bs Antigen Negative (Negative) Hep B Core Total Ab Positive H (Negative) Hep B Core IgM Ab Negative (Negative) Hepatitis C Ab Confirm >11.0 H (0.0-0.9) s/co ratio HIV 1&2 Antibody Non-Reactive (Nonreactive) 02/08/19 Range/Units 08:10 WBC 6.0 (4.4-11.0) K/mm3 RBC 4.29 L (4.6-6.2) M/mm3 Hgb 13.4 (13.0-16.5) g/dL Hct 40.0 (40-54) % MCV 93.2 (80-94) fL MCH 31.2 (27.0-32.0) pg MCHC 33.5 (32-36) g/dL RDW Std Deviation 40.4 (35.1-43.9) fl RDW Coeff of Clement 11.9 (11.6-14.6) % Plt Count 238 (150-450) K/mm3 MPV 10.3 (6.2-12.0) fl Sodium (136-145) mmol/L Potassium (3.5-5.1) mmol/L Chloride (98-107) mmol/L Carbon Dioxide (21.0-32.0) mmol/L Anion Gap (5-15) BUN (7-18) mg/dL Creatinine (0.70-1.30) mg/dL Estim Creat Clear Calc ml/min Est GFR (MDRD) Af Amer (>60) mL/min Est GFR (MDRD) Non-Af (>60) mL/min BUN/Creatinine Ratio (10-20) RATIO Glucose (74-106) mg/dL Calcium (8.5-10.1) mg/dL Phosphorus (2.5-4.9) mg/dL Magnesium (1.6-2.6) mg/dL Total Bilirubin (0.20-1.00) mg/dL AST (15-37) U/L ALT (16-61) U/L Alkaline Phosphatase (45-117) U/L Total Protein (6.4-8.2) g/dL Albumin (3.2-5.0) g/dL Globulin (2.2-4.2) g/dL Albumin/Globulin Ratio (0.9-2.4) RATIO Hepatitis A IgM Ab (Negative) Hepatitis A Ab Total (Negative) Hep Bs Antigen (Negative) Hep B Core Total Ab (Negative) Hep B Core IgM Ab (Negative) Hepatitis C Ab Confirm (0.0-0.9) s/co ratio HIV 1&2 Antibody (Nonreactive) none Operations: None Procedures: None Summary of Care Provided: The patient is a 33-year-old homeless male with a past medical history of polysubstance abuse (including heroin, fentanyl and methamphetamine) and tobacco dependence who presented to the ED at [facility] on 02/08/2019 stating he felt like he was in withdrawal. His last use of intravenous opiates was 24 hours prior to admission. Per the pt he had never been in a detox program or had counseling for his illicit drug use and he was requesting admission for medical stabilization for acute opiate withdrawal. He stated he wanted to go to an in drug rehabilitation facility at [place] from [facility]. Physical exam was remarkable for dried blood in both nares, a scratch on his nose and injection of both conjunctiva, right greater than left. There was watery discharge from the right eye. He was admitted to the hospital and the protocol for acute opiate withdrawal was initiated. Lab revealed mild elevations in AST and ALT. Hepatitis panel and HIV were ordered. HIV was negative. Hepatitis panel was positive for hepatitis C and hepatitis B. He was informed that he could be treated for Hepatitis C if he could remain clean and sober for at least 6 months. He was also informed that HEP C and Hep B can cause cirrhosis and Hepatoma and can be transmitted via blood products and sex. The hospital course was unremarkable. He was seen by the field investigator and she diagnosed him with severe malnutrition and provided nutritional supplements in addition to meals. His appetite after the first day was very good. He was given a list of phone numbers for inpt rehab facilities so that he could make some phone calls. He did not look at the list and made no phone call. He is not motivated to even manage his self care. The SW was able to get him an intake at [facility] and he was discharged on 02/11/19. PHYSICAL EXAM: GENERAL: alert, oriented X 3, NAD He is unclean and smelly and not motivated to bathe. His clothes reek of cigarettes. ORAL: moist mucosa, no mucosal lesions NECK: No JVD, supple, trachea midline LUNGS: CTA, symmetric chest expansion HEART: RRR, Normal S1 and S2, no rub, no gallop ABDOMEN: soft, NT, ND, BS present, no guarding with palpation EXTREMITIES: no edema, no cyanosis, no calf tenderness SKIN: No rashes, no breakdown NEUROLOGIC: no focal neurologic deficits PSYCH: appropriate, normal affect, pleasant This note was generated with Accu[employer] dictation software. It may contain incorrect words, spelling, and punctuation that were not noted in checking the note before signing. Patient Problems: Active and Suspected Problems (Last Updated 02/08/19 @ 02:50 by Sushil Zhang MD) Tobacco dependence (Acute) Withdrawal from opioids (Acute) - Physical Exam Vitals/I&O's: Vital Signs Temp Pulse Resp BP Pulse Ox 98.1 F 57 L 16 101/60 92 02/11/19 03:25 02/11/19 03:25 02/11/19 03:25 02/11/19 03:25 02/11/19 06:58 Oxygen Delivery Method Room Air Weight: 156 lb 1.396 oz Body Mass Index (BMI) 19.5 Intake and Output for Last 24 Hours 02/09/19 02/10/19 02/11/19 23:59 23:59 23:59 Intake Total 1950 / 2350 2300 / 2300 Balance 1950 / 2350 2300 / 2300 Current Medications Acetaminophen (Tylenol) 650 mg PO Q6H PRN PRN PRN Reason: Pain Score 1-10/Temp > 100.7 F Last Admin: 02/10/19 13:40 Dose: 650 mg Documented by: Clonidine (Catapres) 0.1 mg PO Q2H PRN PRN PRN Reason: Hot/Cold Sweats or Anxiety Last Admin: 02/10/19 13:40 Dose: 0.1 mg Documented by: Dextrose (D50w Syringe) 0 gm IV X1 PRN; Protocol PRN Reason: Hypoglycemia Dicyclomine HCl (Bentyl) 20 mg PO Q6H PRN PRN PRN Reason: Abdomnial Discomfort Glucagon () 1 mg IM .X1 PRN PRN Reason: Hypoglycemia Hydroxyzine HCl (Vistaril Vial) 50 mg IM Q6H PRN PRN PRN Reason: Breakthrough Anxiety Hydroxyzine Pamoate (Vistaril Pamoate Capsule) 50 mg PO Q6H PRN PRN PRN Reason: Mild Anxiety Last Admin: 02/10/19 20:57 Dose: 50 mg Documented by: Sodium Chloride () 250 mls @ 15 mls/hr IV .[id number] PRN PRN Reason: Saline Flush Methocarbamol (Methocarbamol) 750 mg PO Q6H PRN PRN PRN Reason: Muscle Aches Last Admin: 02/08/19 02:58 Dose: 750 mg Documented by: Nutritional Formula (Lactose Free) (Ensure Enlive) 120 ml PO 4X/DAY DI Last Admin: 02/10/19 20:57 Dose: 120 ml Documented by: Ondansetron HCl (Zofran) 4 mg IV Q8H PRN PRN PRN Reason: NAUSEA/VOMITING Pramipexole Dihydrochloride (Mirapex) 0.25 mg PO Q12H PRN PRN PRN Reason: Restless Legs Last Admin: 02/08/19 02:58 Dose: 0.25 mg Documented by: Senna/Docusate Sodium (Senokot-S, Hanna-Colace) 2 tablet PO BID PRN PRN PRN Reason: Constipation Sodium Chloride () 10 - 40 ml IV UD PRN PRN Reason: SALINE FLUSH Discharge Activity: Return to Normal Activity Call your doctor if you observe: Fever of 101 or Higher, - - dark urine, jaundice, abdominal pain Home Medications: Medications to take at Discharge NK 02/08/19 Primary Care Physician: Care Physician,No Primary [Primary Care Provider] - Disposition: drug rehab Minutes spent on discharge:: 30 Patient Condition:: Stable Medical Necessity - Tobacco Use Smoking Status: Current every day smoker Tobacco Use: Cigarettes, - Meaningful Use Info Meaningful Use Diagnoses (Choose all that apply): None applicable Code Visit Inpatient E&M: 46609 Disch Hosp
[2019-02-11 09:28] VITALS: BP 112/72; PULSE 100; RESP 18; TEMP 36.6; O2SAT 95
--- NOTE | 2019-02-11 12:00 | CASEMGMT ---
The taxi picked up pt at 11am. Sia [facility] called and said the pt had not arrived. JESUS explained he was picked up an hour ago. SW called [facility], they state they have to take pt where the voucher says, so he was taken to [facility]. JESUS let Sia at [facility] know, she is going to look in the lobby again and outside, but at this point it appears pt did not show up at [facility] after leaving here. DAKOTA Castañeda
== END 2019-02-11 10:55 | disposition home or self-care (01) | DRG 773 ==
LOC: ED 01:36 → MS3 02:51 → MS2 03-08 08:55 → MS3 03-08 08:55
PROVIDERS: Admitting Provider Hospitalist; Emergency Provider Emergency Medicine; Referring Provider Hospitalist; Visit Provider Internal Medicine
DX: F11.23 Opioid dependence with withdrawal (principal); E43 Unspecified severe protein-calorie malnutrition; F15.20 Other stimulant dependence, uncomplicated; Z68.1 Body mass index [BMI] 19.9 or less, adult; F17.210 Nicotine dependence, cigarettes, uncomplicated; Z59.0 Homelessness; B19.20 Unspecified viral hepatitis C without hepatic coma; B19.10 Unspecified viral hepatitis B without hepatic coma; S00.31XA Abrasion of nose, initial encounter; Y04.2XXA Assault by strike against or bumped into by another person, initial encounter; Y93.89 Activity, other specified; Y92.89 Other specified places as the place of occurrence of the external cause
CPT/HCPCS: 36415; 80053; 83735; 84100; 85027; 86703; 86704; 86705; 86706; 86708; 86709; 86803; 87340; 97802; 99218; 99283; 99406; G0378

== ENCOUNTER 2019-02-22 15:21 | Emergency (ER) | payer MEDICAID, SELFPAY ==
[2019-02-08 02:22] VITALS: BMI 19.5
[2019-02-22 15:22] VITALS: BP 160/77; PULSE 97; RESP 4; TEMP 36.9; O2SAT 76; BMI 23.7
--- NOTE | 2019-02-22 15:25 | CPS ---
TWO MINUTES AFTER INTUBATION PT WOKE UP UNAWARE OF SURROUNDINGS, AGITATED AND ATTEMPTING TO CLIMB OUT OF BED. ETT PULLED OUT BY PATIENT PRIOR TO CUFF BEING DEFLATED.
[2019-02-22 15:30] VITALS: PULSE 118; RESP 18; O2SAT 89
--- NOTE | 2019-02-22 15:31 | ED.RN ---
A man ran into ED, stating his friend was overdosed in the car. Nurses loaded pt to ED cot, snoring respirations, fixed pupils. code blue called and compressions and ambu bag started. Pulse check and present. 2 Physicians in room. 1519 nasal narcan 2mg, 1525 4 mg IV narcan. intubated at 1525 with 7.5. As respiratory therapy taping tubing, and RN inserting catheter, pt jumped up suddenly, extubating himself. Lowered to bed and pt talking and alert. Denies recollection of events. PD in room talking with patient.
--- NOTE | 2019-02-22 16:03 | ED.DCSUM_ITS ---
History of Present Illness Chief Complaint: Overdose Narrative: Patient presenting secondary to being unresponsive. Patient was found unresponsive in the front seat of a car in the parking lot and was brought to the emergency department. Additional history was unable to be obtained. Past Medical History - Allergies and Home Meds Allergies/Adverse Reactions: Allergies No Known Allergies Allergy (Verified 02/22/19 15:22) Primary Care Physician: Care Physician,No Primary [Primary Care Provider] - Past Medical History: - - Unable to be obtained due to the patient's level of il lness Surgical History: no surgical history Smoking Status: Current every day smoker - Family History Maternal Family History: Reports: - - Patient denies any maternal medical history. Paternal Family History: Reports: Cancer - Prostate Review of Systems ROS: Unable to Obtain Physical Exam Vital Signs/Narrative: Vital Signs Temp Pulse Resp BP Pulse Ox 02/22/19 15:30 118 H 18 89 02/22/19 15:22 98.5 F 97 4 L 160/77 H 76 General: Well nourished, Well developed, - - Spots of Head: Normocephalic, Atraumatic Eyes: - - Pinpoint pupils with disconjugate gaze ENT: Moist mucous membranes, No rhinorrhea Neck: Supple, Nontender Cardiovascular: Regular rhythm, No murmurs, Tachycardia Respiratory: - - Agonal respirations Abdomen: Soft, Nondistended Back: Normal Inspection Extremities: No edema Skin: Normal color Neurological: - - GCS is 3 Diagnostic/Tx/Re-eval - Medical Decision Making Patient presented secondary to being unresponsive. He was immediately brought into the resuscitation bay. He was given intranasal Narcan and did not have any improvement. Patient was noted to have disconjugate gaze. He had compressions performed on him initially when he came through the emergency department doors, but ultimately was found to have a pulse. [id number] was performed on the patient's with 2 respiratory therapists and 100% oxygen. Patient's pulse ox did jump up into the 90s, but then started to downward trend into the 80s and the 70s. While IV was established, intubation was set up. Patient was given a second dose of Narcan through the IV, and did not seem to be having any sort of response so endotracheal intubation was performed. While the patient was being prepared for mechanical ventilation, he suddenly woke up, shot straight up out of bed, removed his Alvarez catheter on his own as well as all of his IVs, and then indicated that he wished his endotracheal tube to be removed. Patient did pull this out of his trachea on his own, I am unsure if the balloon was deflated in time. Patient at that time started to regain consciousness. He is unsure if he ingested or used any sort of narcotic agents, but actually denies it at this time. He does have a past history of narcotic abuse, but went through the detox program about 3 weeks ago. Patient was observed in the emergency department for 2 hours and did not have any evidence of airway compromise or hypoxia and his heart rate progressively improved. There was some reports from a bystander that apparently the patient had made suicidal comments in the past. He was confronted about this by social work as well as myself. He states that he is depressed due to his addiction, but states that he is not suicidal and does not feel that he is a risk to himself at this time. He will follow-up acutely with the [facility] tomorrow. Patient was discharged in improved condition. - Critical Care Time Critical care time (excluding procedures): 30-74 minutes, Discussing w/Patient &/or Family/Finishing And Shipping Supervisor, Discussing w/Consultants, Performing Direct Patient Care at Bedside Procedures Procedure(s): Patient was laying in the prone position, and had agonal respirations and hypoxia. Decision was made that after the first dose of Narcan was administered that endotracheal and the patient was required. Joanne 3 blade was utilized, and 7.5 ET tube was passed through the cords. There was good color change and positive bilateral breath sounds. ED Disposition - Plan for ED Patient: Disposition: Home or Assisted Living Diagnosis: Opiate overdose Instructions: OVERDOSE, Opiate Additional Instructions: Follow-up with [facility] tomorrow
[2019-02-22 16:45] VITALS: BP 145/96; PULSE 89; RESP 20; O2SAT 95
--- NOTE | 2019-02-22 17:03 | CHAPLAIN ---
Type of Pastoral Visit ___ Initial Visit ___ Follow-up Visit ___ On-call Visit ___ General Patient Visit ___ Spiritual Assessment ___ Family Conference ___ Bereavement ___ Rapid Response _x__ Code Blue ___ Other (describe below) Pastoral Care Referral From ___ Patient ___ Family ___ Nurse ___ Physician ___ Dope Worker ___ Instrumental Teacher _x__ Other (describe below) Sacrament/Intervention ___ Active listening ___ Anointing ___ Bahai ___ Bereavement ___ Communion ___ Rachna exploration ___ ___ Life review ___ Prayer ___ Reconciliation ___ Sacrament of Sick _x__ Supportive presence ___ Wedding ___ Other (describe below) Pastoral Comments patient was able to be brought back from unresponsiveness by Narcan; no personal contact was made with patient but was available to staff and patient as needed
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
[2019-02-22 17:37] VITALS: BP 146/95; PULSE 68; RESP 16; O2SAT 100
--- NOTE | 2019-02-22 17:38 | ED.RN ---
DISCHARGE INSTRUCTIONS GIVEN TO AND REVIEWED WITH PATIENT, PATIENT DENIES QUESTIONS OR CONCERNS AND VOICES UNDERSTANDING OF DISCHARGE INSTRUCTIONS. PAPER SCRUBS AND SNACKS GIVEN WITH DISCHARGE INFORMATION. PT IS ALERT AND APPROPRIATE, RESPIRATIONS ARE EVEN AND UNLABORED. NO S/S OF DISTRESS NOTED.
== END 2019-02-22 17:39 | disposition home or self-care (01) ==
PROVIDERS: Emergency Provider Emergency Medicine
DX: T40.601A Poisoning by unspecified narcotics, accidental (unintentional), initial encounter (principal); R09.02 Hypoxemia; Y92.9 Unspecified place or not applicable; F17.200 Nicotine dependence, unspecified, uncomplicated
CPT/HCPCS: 31500; 92950; 99282; J7030; A4216

== ENCOUNTER 2019-02-23 12:29 | Emergency (ER) | payer MEDICAID, SELFPAY ==
[2019-02-22 15:22] VITALS: BMI 23.7
[2019-02-23 12:29] VITALS: BP 151/71; PULSE 100; RESP 15; TEMP 36.7; O2SAT 99; BMI 22.3
--- NOTE | 2019-02-23 13:55 | ED.VIS.GEN ---
History of Present Illness Chief Complaint: Suicidal Informant: Patient Onset: - - awhile Narrative: Patient presents for evaluation of suicidal ideation was, reports been going on for a while. Reports history of anxiety depression has been treated for emergency department with hydroxyzine. He is talked to counselors in the past once or twice. No inpatient management. History of polysubstance abuse went through detox a month ago. He states he left and came back yesterday for court, he states he ran into an individual sent in the car then he woke up after Narcan. He was seen in the ED yesterday. He does note know what was given or taken. Previous IV drug use. Denies issues. Knowing of any ingestions yesterday. Reports suicidal plans that he had thoughts of overdosing with fentanyl. Tobacco history. Denies alcohol. Denies homicidal ideations. No auditory visual hallucinations. He states stress from missing court yesterday has increase his anxiety. Prior similar symptoms: Yes Past Medical History - Allergies and Home Meds Allergies/Adverse Reactions: Allergies No Known Allergies Allergy (Verified 02/23/19 12:33) Primary Care Physician: Care Physician,No Primary [Primary Care Provider] - Surgical History: no surgical history Smoking Status: Current every day smoker - Family History Maternal Family History: Reports: - - Patient denies any maternal medical history. Paternal Family History: Reports: Cancer - Prostate Review of Systems General: Denies: Chills, Fever, Sweats Eyes: Denies: Visual changes - bilaterally, Diplopia ENT: Denies: Rhinorrhea, Sore throat Cardiovascular: Denies: Chest pain, Palpitations Respiratory: Denies: Dyspnea, Cough, Dyspnea on exertion Gastrointestinal: Denies: Abdominal pain, Nausea, Vomiting, Diarrhea, Melena, Hematochezia Genitourinary: Denies: Dysuria, Hematuria, Frequency Musculoskeletal: Denies: Back pain, Extremity Pain Skin: Denies: Rash, Wounds Neurological: Denies: Headache, Weakness, Numbness Psych: Reports: Depression, Anxiety, Suicidal thoughts, Suicidal ideations Physical Exam Vital Signs/Narrative: Vital Signs Temp Pulse Resp BP Pulse Ox 02/23/19 12:29 98.0 F 100 15 151/71 H 99 Inital Vital Signs reviewed: Yes General: Well nourished, Well developed, No Acute Distress Head: Normocephalic, Atraumatic Eyes: Perrl, EOMI ENT: Moist mucous membranes, No rhinorrhea Neck: Supple, Nontender Cardiovascular: Regular rate, Regular rhythm, No murmurs Respiratory: No distress, CTA bilaterally, Chest nontender Abdomen: Soft, Nontender, Nondistended, Normal bowel sounds Back: Nontender, Normal Inspection Extremities: Nontender, No edema Skin: Normal color, No rash Neurological: Alert, Oriented x3, Cranial nerves II-XII grossly intact, Normal Strength, Normal Sensation Psychological: Depressed, - - Flat affect, admits to suicidal ideations. Diagnostic/Tx/Re-eval Abnormal Lab Results 02/23/19 02/23/19 02/23/19 13:12 13:12 13:12 WBC 6.7 RBC 4.62 Hgb 14.3 Hct 42.7 MCV 92.4 MCH 31.0 MCHC 33.5 RDW Std Deviation 39.7 RDW Coeff of Clement 11.8 Plt Count 330 MPV 10.0 Immature Gran % (Auto) 0.400 Neut % (Auto) 64.0 Lymph % (Auto) 22.2 [place] % (Auto) 7.6 Eos % (Auto) 5.1 H Baso % (Auto) 0.7 Absolute Neuts (auto) 4.3 Absolute Lymphs (auto) 1.49 Nucleated RBC % 0 Sodium 141 Potassium 3.8 Chloride 102 Carbon Dioxide 31.0 Anion Gap 8 BUN 11 Creatinine 0.98 Estim Creat Clear Calc 109.95 Est GFR (MDRD) Af Amer 111 Est GFR (MDRD) Non-Af 92 BUN/Creatinine Ratio 11.2 Glucose 93 Calcium 9.0 Urine Opiates Screen Urine Methadone Screen Ur Barbiturates Screen Ur Phencyclidine Scrn Ur Amphetamines Screen U Methamphetamin-MDMA U Benzodiazepines Scrn Urine Cocaine Screen U Cannabinoids Screen Ur Drug Screen Comment Ethyl Alcohol < 3.0 02/23/19 14:07 WBC RBC Hgb Hct MCV MCH MCHC RDW Std Deviation RDW Coeff of Clement Plt Count MPV Immature Gran % (Auto) Neut % (Auto) Lymph % (Auto) [place] % (Auto) Eos % (Auto) Baso % (Auto) Absolute Neuts (auto) Absolute Lymphs (auto) Nucleated RBC % Sodium Potassium Chloride Carbon Dioxide Anion Gap BUN Creatinine Estim Creat Clear Calc Est GFR (MDRD) Af Amer Est GFR (MDRD) Non-Af BUN/Creatinine Ratio Glucose Calcium Urine Opiates Screen NEGATIVE Urine Methadone Screen NEGATIVE Ur Barbiturates Screen NEGATIVE Ur Phencyclidine Scrn NEGATIVE Ur Amphetamines Screen POSITIVE H U Methamphetamin-MDMA POSITIVE H U Benzodiazepines Scrn NEGATIVE Urine Cocaine Screen NEGATIVE U Cannabinoids Screen NEGATIVE Ur Drug Screen Comment Ethyl Alcohol - Medical Decision Making Patient vitals stable, cooperative. Flat affect admitting to anxiety depression with suicidal ideations. Increasing stressors. Medical clearance labs obtained positive for methamphetamines. Patient is medically cleared. He is evaluated by case management in the ED, he is pink slipped. Pending placement at this time. 1715: Patient accepted to [facility] under the service of Dr. Becerril. ED Disposition - Plan for ED Patient: Disposition: Psychiatric Hospital or Unit Diagnosis: Depression with suicidal ideation Referrals: Care Physician,No Primary [Primary Care Provider] -
[2019-02-23 14:12] LABS: Alcohol, Blood (Medical)-Serum < 3.0 mg/dL; Anion Gap 8 (5-15); BUN 11 mg/dL (7-18); BUN/Creat Ratio 11.2 RATIO (10-20); Chloride 102 mmol/L (98-107); Creatinine, Serum 0.98 mg/dL (0.70-1.30); EST Glomerular Filtration Rate 92 mL/min (>60); Est Glom Filt Rate - Afr Amer 111 mL/min (>60); Estimated Creatinine Clearance 109.95 ml/min; Glucose 93 mg/dL (74-106); Potassium 3.8 mmol/L (3.5-5.1); Sodium Level 141 mmol/L (136-145)
[2019-02-23 14:14] LABS: Absolute Lymphocyte Count 1.49 X10^3/uL (0.83-4.51); Absolute Neutrophil Count 4.3 X10^3/uL (2.0-7.7); Basophil# 0.05 X10^3/uL; Basophil% 0.7 % (0-1); Eosinophil# 0.34 X10^3/uL; Eosinophils% 5.1 % (0-5); Hematocrit 42.7 % (40-54); Hemoglobin 14.3 g/dL (13.0-16.5); Lymphocyte # 1.49 X10^3/ul (4.0); Lymphocyte % 22.2 % (19-41); Mean Corp Hgb Conc 33.5 g/dL (32-36); Mean Corpuscular Volume 92.4 fL (80-94); Monocyte# 0.51 X10^3/uL; Monocyte% 7.6 % (0-10); NRBC Flagged by Analyzer 0 % (0-5); Neutrophil # 4.29 X10^3/uL (2.7-7.7); Platelet Count 330 K/mm3 (150-450); RBC Distribution Width CV 11.8 % (11.6-14.6); RBC Distribution Width SD 39.7 fl (35.1-43.9); Red Blood Count 4.62 M/mm3 (4.6-6.2); White Blood Count 6.7 K/mm3 (4.4-11.0)
[2019-02-23 14:31] LABS: Amphetamine Urine VISTA POSITIVE (<1000 ng/mL); Barbiturate Urine VISTA NEGATIVE (< 200 ng/mL); Benzodiazepine Urine VISTA NEGATIVE (< 200 ng/mL); Cocaine Urine VISTA NEGATIVE (< 300 ng/mL); Ecstacy Urine VISTA POSITIVE (< 500 ng/mL); Methadone Urine VISTA NEGATIVE (< 300 ng/mL); PCP Urine VISTA NEGATIVE (< 25 ng/mL); THC Urine VISTA NEGATIVE (< 50 ng/mL); Vista UDS pH Range 5
[2019-02-23 15:03] VITALS: BP 148/78; PULSE 87; RESP 14; O2SAT 99
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
--- NOTE | 2019-02-23 15:28 | CM.ED ---
SOCIAL WORK CALL TO [facility] TO SPEAK WITH PATIENT'S STOCK CRANE OPERATOR, NINA MCHUGH PER PATIENT'S REQUEST. LEFT MESSAGE WITH DAMPER WORKER, AWAITING CALL BACK. Baron FULLER MSW, TENDER LABOR.
--- NOTE | 2019-02-23 16:30 | CM.ED ---
SOCIAL WORK REFERRAL FAXED AND CALLED TO JACK AT [facility]. PER JACK, WILL REVIEW REFERRAL AND GET BACK TO THIS WORKER. Baron FULLER, ARTIST RELATIONSHIP MANAGER, CUSTOMER SUPPORT TECHNICIAN.
--- NOTE | 2019-02-23 17:27 | CM.ED ---
SOCIAL WORK RECEIVED CALL FROM JACK WITH [facility]. PATIENT ACCEPTED BY DR. YORK TO THE 1600 UNIT BED 13B. NURSE TO CALL REPORT TO [phone]. STAFF AND PATIENT UPDATED. PINK SLIP ON CHART. Baron FULLER, FIELD CASE MANAGER, SHELLS INSPECTOR.
[2019-02-23 17:30] VITALS: BP 95/57; PULSE 69; RESP 16; TEMP 36.6; O2SAT 99
--- NOTE | 2019-02-23 17:43 | NURSING ---
CALLED [facility] FOR TRANSPORT. ETA IS ABOUT 30 MIN
== END 2019-02-23 18:09 ==
PROVIDERS: Emergency Provider Emergency Medicine
DX: F32.9 Major depressive disorder, single episode, unspecified (principal); R45.851 Suicidal ideations; F41.9 Anxiety disorder, unspecified; F19.11 Other psychoactive substance abuse, in remission; F17.200 Nicotine dependence, unspecified, uncomplicated
CPT/HCPCS: 80048; 80307; 80320; 85025; 99284; G0480

== ENCOUNTER 2019-03-04 23:01 | Observation (INO) | payer MEDICAID, SELFPAY ==
[2019-03-04 23:02] VITALS: BP 124/86; PULSE 99; RESP 16; TEMP 36.7; O2SAT 98; BMI 22.6
--- NOTE | 2019-03-04 23:18 | ED.VIS.GEN ---
History of Present Illness Chief Complaint: Substance Abuse Informant: Patient Narrative: Patient presents with request for detox from heroin and fentanyl. Patient has a history of abuse and was admitted here for detox February 08. During that visit he found out that he was hep C positive. Patient states he was previously injecting but since finding this out is only been snorting. He states his last use was just over 48 hours ago. During his last admission it is documented that the patient seemed to have no interest in making phone calls arrangements for inpatient rehab following his detox. Patient states that he has made these phone calls and has been in contact with [facility] in [place]. His last spoke with them earlier today. He states they will take him for inpatient rehab but he has to be fully detoxed first. He is here requesting to stay in the hospital for the detox program and then be transferred to [facility]. Patient states he feels like he is having anxiety, skin crawling, nausea, and difficulty sleeping. - Past Medical History (1) Tobacco dependence Status: Chronic (2) Withdrawal from opioids Status: Chronic (3) Hepatitis B Status: Chronic (4) Hepatitis C Status: Chronic (5) Polysubstance (including opioids) dependence with physiological dependence Status: Chronic Past Medical History - Allergies and Home Meds Allergies/Adverse Reactions: Allergies No Known Allergies Allergy (Verified 03/04/19 23:04) Primary Care Physician: Care Physician,No Primary [Primary Care Provider] - Prior records reviewed: Yes Surgical History: no surgical history Smoking Status: Current every day smoker - Family History Maternal Family History: Reports: - - Patient denies any maternal medical history. Paternal Family History: Reports: Cancer - Prostate Review of Systems General: Denies: Chills, Fever Eyes: Denies: Visual changes - bilaterally Cardiovascular: Denies: Chest pain Respiratory: Denies: Dyspnea Gastrointestinal: Reports: Nausea, - - Poor appetite and unable to eat Genitourinary: Denies: Dysuria Musculoskeletal: Reports: Myalgias. Denies: Extremity Pain Skin: Denies: Rash, Abscess Neurological: Denies: Headache Psych: Reports: Anxiety Hematologic: Denies: Easy bruising, Easy bleeding Allergy: Denies: Uticaria Physical Exam Vital Signs/Narrative: Vital Signs Temp Pulse Resp BP Pulse Ox 03/04/19 23:02 98.0 F 99 16 124/86 H 98 Inital Vital Signs reviewed: Yes General: Well nourished, Well developed Head: Normocephalic ENT: Moist mucous membranes Cardiovascular: Regular rate, Regular rhythm Respiratory: No distress, CTA bilaterally Abdomen: Soft, Nontender Extremities: Nontender Skin: Normal color, No rash Neurological: Alert, Oriented x3, Normal Strength, Normal Sensation Psychological: - - Mildly anxious Diagnostic/Tx/Re-eval Laboratory Results 03/04/19 03/04/19 03/04/19 23:40 23:40 23:40 WBC 6.7 RBC 4.35 L Hgb 13.4 Hct 40.8 MCV 93.8 MCH 30.8 MCHC 32.8 RDW Std Deviation 40.9 RDW Coeff of Clement 11.9 Plt Count 185 MPV 10.2 Immature Gran % (Auto) 0.700 Neut % (Auto) 56.2 Lymph % (Auto) 28.4 [place] % (Auto) 9.6 Eos % (Auto) 4.5 Baso % (Auto) 0.6 Absolute Neuts (auto) 3.8 Absolute Lymphs (auto) 1.90 Nucleated RBC % 0 Sodium 142 Potassium 4.2 Chloride 107 Carbon Dioxide 29.0 Anion Gap 6 BUN 13 Creatinine 1.09 Estim Creat Clear Calc 108.66 Est GFR (MDRD) Af Amer 98 Est GFR (MDRD) Non-Af 81 BUN/Creatinine Ratio 11.9 Glucose 87 Calcium 8.7 Total Bilirubin 0.30 Direct Bilirubin 0.12 AST 83 H ALT 173 H Alkaline Phosphatase 111 Total Protein 7.1 Albumin 3.3 Globulin 3.8 Urine Opiates Screen Urine Methadone Screen Ur Barbiturates Screen Ur Phencyclidine Scrn Ur Amphetamines Screen U Methamphetamin-MDMA U Benzodiazepines Scrn Urine Cocaine Screen U Cannabinoids Screen Ur Drug Screen Comment Ethyl Alcohol 4.0 03/05/19 00:25 WBC RBC Hgb Hct MCV MCH MCHC RDW Std Deviation RDW Coeff of Clement Plt Count MPV Immature Gran % (Auto) Neut % (Auto) Lymph % (Auto) [place] % (Auto) Eos % (Auto) Baso % (Auto) Absolute Neuts (auto) Absolute Lymphs (auto) Nucleated RBC % Sodium Potassium Chloride Carbon Dioxide Anion Gap BUN Creatinine Estim Creat Clear Calc Est GFR (MDRD) Af Amer Est GFR (MDRD) Non-Af BUN/Creatinine Ratio Glucose Calcium Total Bilirubin Direct Bilirubin AST ALT Alkaline Phosphatase Total Protein Albumin Globulin Urine Opiates Screen NEGATIVE Urine Methadone Screen NEGATIVE Ur Barbiturates Screen NEGATIVE Ur Phencyclidine Scrn NEGATIVE Ur Amphetamines Screen NEGATIVE U Methamphetamin-MDMA NEGATIVE U Benzodiazepines Scrn NEGATIVE Urine Cocaine Screen NEGATIVE U Cannabinoids Screen NEGATIVE Ur Drug Screen Comment Ethyl Alcohol - Medical Decision Making Patient is given IV fluids along with a small dose of Zofran and Ativan. I will speak with the hospitalist regarding admission for detox. As previously stated patient previously had taken no initiated to find himself inpatient drug rehab. Patient has now made those steps and has a program to go to if he can get fully detoxed. ED Disposition - Plan for ED Patient: Disposition: Acute Care Hospital [facility] Diagnosis: Desire for detoxification Referrals: Care Physician,No Primary [Primary Care Provider] -
[2019-03-04 23:49] LABS: Absolute Neutrophil Count 3.8 X10^3/uL (2.0-7.7); Basophil# 0.04 X10^3/uL; Basophil% 0.6 % (0-1); Eosinophils% 4.5 % (0-5); Hematocrit 40.8 % (40-54); Hemoglobin 13.4 g/dL (13.0-16.5); Lymphocyte % 28.4 % (19-41); Mean Corp Hgb Conc 32.8 g/dL (32-36); Mean Corpuscular Hgb 30.8 pg (27.0-32.0); Mean Corpuscular Volume 93.8 fL (80-94); Mean Platelet Vol. 10.2 fl (6.2-12.0); Monocyte# 0.64 X10^3/uL; Monocyte% 9.6 % (0-10); NRBC Flagged by Analyzer 0 % (0-5); Neutrophil # 3.77 X10^3/uL (2.7-7.7); Neutrophil % 56.2 % (47-70); Platelet Count 185 K/mm3 (150-450); RBC Distribution Width CV 11.9 % (11.6-14.6); RBC Distribution Width SD 40.9 fl (35.1-43.9); Red Blood Count 4.35 M/mm3 (4.6-6.2); White Blood Count 6.7 K/mm3 (4.4-11.0)
[2019-03-04] MEDS: LORazepam 2 MG/ML Syringe 0.5 MG IV (23:49)
[2019-03-04] MEDS: Ondansetron 4 MG/2 ML Vial IV (23:49)
[2019-03-05] VITALS (7 sets, daily range): BP systolic 94–116; BP diastolic 52–73; PULSE 53–80; RESP 15–18; TEMP 36.3–36.9; O2SAT 95–98; BMI 21.4; BMI 21.5
[2019-03-05 00:13] LABS: AST(SGOT) 83 U/L (15-37); Alanine Aminotransfer ALT/SGPT 173 U/L (16-61); Albumin, Serum 3.3 g/dL (3.2-5.0); Alkaline Phosphatase 111 U/L (45-117); Anion Gap 6 (5-15); BUN 13 mg/dL (7-18); BUN/Creat Ratio 11.9 RATIO (10-20); Bilirubin, Direct 0.12 mg/dL (0.00-0.30); Calcium,Total 8.7 mg/dL (8.5-10.1); Chloride 107 mmol/L (98-107); Creatinine, Serum 1.09 mg/dL (0.70-1.30); EST Glomerular Filtration Rate 81 mL/min (>60); Est Glom Filt Rate - Afr Amer 98 mL/min (>60); Estimated Creatinine Clearance 108.66 ml/min; Globulin 3.8 g/dL (2.2-4.2); Glucose 87 mg/dL (74-106); Potassium 4.2 mmol/L (3.5-5.1); Protein, Total 7.1 g/dL (6.4-8.2); Sodium Level 142 mmol/L (136-145)
[2019-03-05] MEDS: 0.9% Normal Saline 1,000 ML 150 ML IV (00:21)
[2019-03-05 00:42] LABS: Amphetamine Urine VISTA NEGATIVE (<1000 ng/mL); Barbiturate Urine VISTA NEGATIVE (< 200 ng/mL); Benzodiazepine Urine VISTA NEGATIVE (< 200 ng/mL); Cocaine Urine VISTA NEGATIVE (< 300 ng/mL); Ecstacy Urine VISTA NEGATIVE (< 500 ng/mL); Methadone Urine VISTA NEGATIVE (< 300 ng/mL); PCP Urine VISTA NEGATIVE (< 25 ng/mL); THC Urine VISTA NEGATIVE (< 50 ng/mL); Vista UDS pH Range 6
--- NOTE | 2019-03-05 01:04 | HP.PCM_ITS ---
Problem List (1) Hepatitis C Status: Chronic (2) Tobacco dependence Status: Chronic (3) Polysubstance (including opioids) dependence with physiological dependence Status: Chronic (4) Methamphetamine dependence Status: Chronic (5) Desire for detoxification Status: Acute (6) Hepatitis B Status: Inactive (7) Withdrawal from opioids Status: Acute History of Present Illness Date of Admission: 03/04/19 Chief Complaint: narcotic withdrawal symptoms The patient is a 34 year old M with a significant history of hepatitis C; polysubstance dependence who presented to emergency department with opioid withdrawal symptoms and a desire to undergo detoxification. Patient drug of choice is a fentanyl and heroin. He used to shoot these medications. The patient reports that after his discharge from recent hospitalization at our hospital he stopped shooting and now he snorts these medications. The last time he used heroin and fentanyl was about 48 hours prior to presentation. Also he has been using methamphetamine. Last time he used methamphetamine was about a week ago. He reports that his withdrawal symptoms include nausea without vomiting; headache; anorexia; insomnia and tactile hallucination with a feeling of something crawling on his legs. Further he has restless legs as well as fatigue Patient was admitted to the hospital on 02/08/2019 and discharged on 02/11/2019 for withdrawal symptoms. Patient reports that after discharge from the hospital he was clean for a while but he began to associate with people that use drugs and ended up using drug again. He reported that he is homeless. He reported that unlike his previous admission that he made no attempts for long-term drug rehabilitation this time around he has had multiple conversation with Keith Cbob,drug rehab program at [place], [place]. Per patient Keith Cobb will accept him into the drug rehabilitation program only after he has gone through detoxification. Past Medical History Past Medical History (Chronic Problems): Chronic Problems (Last Reviewed 03/05/19 @ 04:41 by Sushil Zhang MD) Hepatitis C (Chronic) Tobacco dependence (Chronic) Polysubstance (including opioids) dependence with physiological dependence (Chronic) Methamphetamine dependence (Chronic) Medical History: Medical History (Last Reviewed 03/05/19 @ 04:41 by Sushil Zhang MD) Polysubstance dependence F19.20 Allergies No Known Allergies Allergy (Verified 03/04/19 23:04) Home Medications: Ambulatory Orders Medication Instructions Recorded Doxepin HCl 25 mg PO QHS 03/04/19 busPIRone [Buspar] 15 mg PO TID 03/04/19 Surgical History: no surgical history Lives: Homeless Smoking Status: Current every day smoker Drugs: Marijuana - *Family History Maternal History Items: - - Patient denies any maternal medical history. Paternal History Items: Cancer - Prostate Review of Systems Constitutional: Reports: Chills. Denies: Fever, Weight Change HEENT: Reports: Head Aches. Denies: Sinus Congestion, Sinus Drainage Cardiovascular: Denies: Chest Pain, Palpitations Respiratory: Denies: Cough, Shortness of breath at rest, Sputum production Gastrointestinal: Reports: Nausea. Denies: Abdominal Pain, Vomiting Genitourinary: Denies: Dysuria Musculoskeletal: Reports: Muscle pain. Denies: Joint Pain, Joint Tenderness Skin: Denies: Rash, Wounds Neurological: Denies: Numbness, Tingling, Focal weakness Psychiatric: Reports: Anxiety. Denies: Depression, Homicidal Ideations, Suicidal Ideations Hematologic/ Lymphatic: Denies: Easy Bruising, Easy Bleeding VTE Information - Inpt Only VTE Present on Admission: No VTE Mechan Device Prophylaxis: None VTE Pharm Prophylaxis ordered?: No Reason prophylaxis not ordered:: Treatment Not Indicated - Low risk ambulate. Patient Problems: Active and Suspected Problems (Last Reviewed 03/05/19 @ 04:41 by Sushil ziegler MD) Desire for detoxification (Acute) - Physical Exam Vitals/I&O's: Vital Signs Temp Pulse Resp BP Pulse Ox 98.0 F 99 16 124/86 H 98 03/04/19 23:02 03/04/19 23:02 03/04/19 23:02 03/04/19 23:02 03/04/19 23:02 Oxygen Delivery Method Room Air Weight: 82 kg Body Mass Index (BMI) 22.6 General: Alert, Oriented x3, Cooperative HEENT: Atraumatic, PERRLA, EOMI, Normocephalic Neck: Supple, No JVD, Negative Carotid Bruits Lungs: Clear to auscultation, Normal air movement Cardiovascular: Regular rate, Regular Rhythm, Normal S1, Normal S2, No murmurs Abdomen: Bowel Sounds Present, Soft, Non Tender Extremities: No edema, Capillary Refill Less than 3 Seconds Skin: No rashes, No breakdown Musculoskeletal: No Tenderness to Palpation of Joints or Extremities Neurological: Cranial nerves II-XII grossly intact Psych/Mental Status: Anxious, Hallucinations - tactile Laboratory Results 03/04/19 23:40: WBC 6.7, RBC 4.35 L, Hgb 13.4, Hct 40.8, MCV 93.8, MCH 30.8, MCHC 32.8, RDW Std Deviation 40.9, RDW Coeff of Clement 11.9, Plt Count 185, MPV 10.2, Immature Gran % (Auto) 0.700, Neut % (Auto) 56.2, Lymph % (Auto) 28.4, [place] % (Auto) 9.6, Eos % (Auto) 4.5, Baso % (Auto) 0.6, Absolute Neuts (auto) 3.8, Absolute Lymphs (auto) 1.90, Nucleated RBC % 0 03/04/19 23:40: Sodium 142, Potassium 4.2, Chloride 107, Carbon Dioxide 29.0, Anion Gap 6, BUN 13, Creatinine 1.09, Estim Creat Clear Calc 108.66, Est GFR (MDRD) Af Amer 98, Est GFR (MDRD) Non-Af 81, BUN/Creatinine Ratio 11.9, Glucose 87, Calcium 8.7, Total Bilirubin 0.30, Direct Bilirubin 0.12, AST 83 H, ALT 173 H, Alkaline Phosphatase 111, Total Protein 7.1, Albumin 3.3, Globulin 3.8 03/04/19 23:40: Ethyl Alcohol 4.0 03/05/19 00:25: Urine Opiates Screen NEGATIVE, Urine Methadone Screen NEGATIVE, Ur Barbiturates Screen NEGATIVE, Ur Phencyclidine Scrn NEGATIVE, Ur Amphetamines Screen NEGATIVE, U Methamphetamin-MDMA NEGATIVE, U Benzodiazepines Scrn NEGATIVE, Urine Cocaine Screen NEGATIVE, U Cannabinoids Screen NEGATIVE, Ur Drug Screen Comment Current Medications Sodium Chloride () 1,000 mls @ 150 mls/hr IV .Q6H40M DI Last Admin: 03/05/19 00:21 Dose: 150 mls/hr Documented by: Assessment/Plan All Active Problems (Last Reviewed 03/05/19 @ 04:41 by Sushil Zhang MD) Desire for detoxification (Acute) Withdrawal from opioids (Acute) The patient is a 34 year old M with a significant history of hepatitis C; polysubstance dependence who presented to emergency department with opioid withdrawal symptoms. Opioid withdrawal Counseled. We will put patient on opioid withdrawal protocol with buprenorphine and other supportive medications. PRN Zofran for nausea/vomiting Tobacco abuse Nicotine patch ordered Depression/Anxiety Doxepin and Buspar continued. DVT prophylaxis Low risk encouraged to ambulate. Code Visit Inpatient E&M: 01989 Init Hosp L3
[2019-03-05] MEDS: Pramipexole Di-HCl 0.25 MG Tablet PO (02:47)
[2019-03-05] MEDS: cloNIDine HCl 0.1 MG Tablet PO ×2 (02:48→17:22)
[2019-03-05] MEDS: Buprenorphine HCl 2 MG TAB.SUBL SL ×3 (02:48→18:06)
[2019-03-05] MEDS: busPIRone 15 MG TABLET PO ×3 (05:55→21:47)
--- NOTE | 2019-03-05 10:09 | PN_ITS ---
Patient Problems: Active and Suspected Problems (Last Reviewed 03/05/19 @ 04:41 by Sushil Zhang MD) Desire for detoxification (Acute) Reason for Visit: Patient seen and examined. He has been managed for acute opiate withdrawal. He has no complaints and feels well. He denies any abdominal cramping, nausea vomiting or lightheadedness. Patient does get to be anxious. He wants to go to an inpatient detox facility after discharge. Vitals/I&O's: Vital Signs Temp Pulse Resp BP Pulse Ox 97.6 F L 80 18 106/52 L 97 03/05/19 05:55 03/05/19 07:24 03/05/19 05:55 03/05/19 05:55 03/05/19 05:55 Oxygen Delivery Method Room Air Weight: 171 lb 15.369 oz Body Mass Index (BMI) 21.4 Intake and Output for Last 24 Hours 03/03/19 03/04/19 03/05/19 23:59 23:59 23:59 Intake Total 1500 / 1500 Balance 1500 / 1500 General: Alert, Oriented x3, Cooperative, No apparent distress HEENT: Atraumatic, PERRLA, EOMI, Normocephalic Oral: Moist Mucosa Neck: Supple, No JVD, Negative Carotid Bruits Lungs: Clear to auscultation, Normal air movement, No rhonchi, No wheeze Cardiovascular: Regular rate, Regular Rhythm, Normal S1, Normal S2, No murmurs Abdomen: Bowel Sounds Present, Soft, Non Tender, Non-Distended, No Hepato- splenomegaly Extremities: No clubbing, No cyanosis, No edema, Capillary Refill Less than 3 Seconds Skin: No rashes, No breakdown Musculoskeletal: No Tenderness to Palpation of Joints or Extremities Lymphatic: No Cervical, Supraclavicular, or Inguinal Adenopathy Neurological: Cranial nerves II-XII grossly intact, Neuro grossly intact, Motor Exam 5/5 strength throughout Psych/Mental Status: Normal Affect, Appropriate, Alert and oriented to time, place, person, mood and affect Laboratory Results 03/04/19 23:40: WBC 6.7, RBC 4.35 L, Hgb 13.4, Hct 40.8, MCV 93.8, MCH 30.8, MCHC 32.8, RDW Std Deviation 40.9, RDW Coeff of Clement 11.9, Plt Count 185, MPV 10.2, Immature Gran % (Auto) 0.700, Neut % (Auto) 56.2, Lymph % (Auto) 28.4, [place] % (Auto) 9.6, Eos % (Auto) 4.5, Baso % (Auto) 0.6, Absolute Neuts (auto) 3.8, Absolute Lymphs (auto) 1.90, Nucleated RBC % 0 03/04/19 23:40: Sodium 142, Potassium 4.2, Chloride 107, Carbon Dioxide 29.0, Anion Gap 6, BUN 13, Creatinine 1.09, Estim Creat Clear Calc 108.66, Est GFR (MDRD) Af Amer 98, Est GFR (MDRD) Non-Af 81, BUN/Creatinine Ratio 11.9, Glucose 87, Calcium 8.7, Total Bilirubin 0.30, Direct Bilirubin 0.12, AST 83 H, ALT 173 H, Alkaline Phosphatase 111, Total Protein 7.1, Albumin 3.3, Globulin 3.8 03/04/19 23:40: Ethyl Alcohol 4.0 03/05/19 00:25: Urine Opiates Screen NEGATIVE, Urine Methadone Screen NEGATIVE, Ur Barbiturates Screen NEGATIVE, Ur Phencyclidine Scrn NEGATIVE, Ur Amphetamines Screen NEGATIVE, U Methamphetamin-MDMA NEGATIVE, U Benzodiazepines Scrn NEGATIVE, Urine Cocaine Screen NEGATIVE, U Cannabinoids Screen NEGATIVE, Ur Drug Screen Comment Current Medications Acetaminophen (Tylenol) 650 mg PO Q6H PRN PRN PRN Reason: Pain Score 1-10/Temp > 100.7 F Buprenorphine HCl (Buprenorphine Hcl) 4 mg SL Q8H DI; Taper Stop: 03/08/19 06:29 Last Admin: 03/05/19 02:48 Dose: 4 mg Documented by: Buspirone HCl (Buspar) 15 mg PO TID DI Last Admin: 03/05/19 05:55 Dose: 15 mg Documented by: Clonidine (Catapres) 0.1 mg PO Q2H PRN PRN PRN Reason: Hot/Cold Sweats or Anxiety Last Admin: 03/05/19 02:48 Dose: 0.1 mg Documented by: Dextrose (D50w Syringe) 0 gm IV X1 PRN; Protocol PRN Reason: Hypoglycemia Dicyclomine HCl (Bentyl) 20 mg PO Q6H PRN PRN PRN Reason: Abdominal Discomfort Doxepin HCl (Sinequan) 25 mg PO QHS DI Glucagon () 1 mg IM .X1 PRN PRN Reason: Hypoglycemia Hydroxyzine HCl (Vistaril Vial) 50 mg IM Q6H PRN PRN PRN Reason: Breakthrough Anxiety Hydroxyzine Pamoate (Vistaril Pamoate Capsule) 50 mg PO Q6H PRN PRN PRN Reason: Mild Anxiety Melatonin (Melatonin) 3 mg PO QHS DI Methocarbamol (Methocarbamol) 750 mg PO Q6H PRN PRN PRN Reason: Muscle Aches Nicotine (Nicoderm Cq (Pbkc)) 21 mg TRANSDERM. DAILY DI Last Admin: 03/05/19 02:48 Dose: 21 mg Documented by: Nutritional Formula (Lactose Free) (Ensure Enlive) 120 ml PO 4X/DAY DI Ondansetron HCl (Zofran) 4 mg IV Q8H PRN PRN PRN Reason: NAUSEA/VOMITING Pramipexole Dihydrochloride (Mirapex) 0.25 mg PO Q12H PRN PRN PRN Reason: Restless Legs Last Admin: 03/05/19 02:47 Dose: 0.25 mg Documented by: Sodium Chloride () 10 - 40 ml IV UD PRN PRN Reason: SALINE FLUSH STROKE Vital Signs/Narrative: Vital Signs Pulse 03/05/19 07:24 80 Medical Necessity - Tobacco Use Smoking Status: Current every day smoker Assessment/Plan All Active Problems (Last Reviewed 03/05/19 @ 04:41 by Sushil Zhang MD) Desire for detoxification (Acute) Withdrawal from opioids (Acute) 1. Acute opioid withdrawal * currently on opioid withdrawal protocol for buprenorphine * on zofran prn for nausea and vomiting * monitor CINA score * 2. Nicotine dependence: on nicotine patch 3. Depression and anxiety: on doxepin and buspar DVT Prophylaxis: low risk; encourage ambulation Code Visit Inpatient E&M: 17609 Subs Hosp L2
--- NOTE | 2019-03-05 11:36 | CASEMGMT ---
Social Work Note Pt is at [facility] for Opioid withdrawal. SW familiar with pt from previous visit. Pt is alert and orientated x3. Per notes, pt has been in contact with [facility] in [place] and his plan is to go there at discharge. SW met with pt and introduced self and role at [facility]. Pt is alert and orientated x3. Pt confirms that he has been in contact with [facility] in [place] and his plan is to go there at discharge. Pt states that he has to arrange an intake appointment with them and plans on calling. SW offered to call for pt and pt denied, stating he will call them on Friday. Pt states that he will also need transportation arranged to get to [facility]. SW informed pt that transportation may be able to be arranged through his insurance and maybe a taxi could be arranged for pt. Pt states understanding, denied additional needs or concerns at this time. Plan: [facility] in [place]. Pt to call to arrange intake appointment. Shirley Head [employer], [employer]
[2019-03-05] MEDS: Doxepin Hcl 25 MG Capsule PO (21:47)
[2019-03-05] MEDS: MELATONIN 3 MG TABLET PO (21:47)
[2019-03-06] MEDS: Buprenorphine HCl 2 MG TAB.SUBL SL ×3 (02:00→18:32)
[2019-03-06 04:00] VITALS: RESP 15
[2019-03-06] MEDS: 0.9% Saline Lock 10 ML Syringe IV (06:18)
[2019-03-06] MEDS: busPIRone 15 MG TABLET PO ×3 (06:18→23:00)
[2019-03-06 06:22] VITALS: BP 105/64; PULSE 75; RESP 15; TEMP 36.7; O2SAT 94
[2019-03-06 09:41] VITALS: BP 118/68; PULSE 68; RESP 18; TEMP 36.7; O2SAT 98
[2019-03-06] MEDS: cloNIDine HCl 0.1 MG Tablet PO ×2 (09:41→15:19)
[2019-03-06] MEDS: Methocarbamol 750 MG Tablet PO (09:41)
--- NOTE | 2019-03-06 09:59 | PCM.PN.HOSP ---
Patient Problems: Active and Suspected Problems (Last Reviewed 03/05/19 @ 04:41 by Sushil Zhang MD) Desire for detoxification (Acute) Subjective: Patient seen and examined. He has no complaints today. Review of systems is otherwise negative. Labs and vitals reviewed. Vitals/I&O's: Vital Signs Temp Pulse Resp BP Pulse Ox 98.0 F 75 15 105/64 94 03/06/19 06:22 03/06/19 06:22 03/06/19 06:22 03/06/19 06:22 03/06/19 06:22 Oxygen Delivery Method Room Air Weight: 171 lb 15.369 oz Body Mass Index (BMI) 21.4 Intake and Output for Last 24 Hours 03/04/19 03/05/19 03/06/19 23:59 23:59 23:59 Intake Total 1500 / 1940 640 / 640 Balance 1500 / 0 640 / 640 General: Alert, Oriented x3, Cooperative, No apparent distress HEENT: Atraumatic, PERRLA, EOMI, Normocephalic Oral: Moist Mucosa Neck: Supple, No JVD, Negative Carotid Bruits Lungs: Clear to auscultation, Normal air movement, No rhonchi, No wheeze Cardiovascular: Regular rate, Regular Rhythm, Normal S1, Normal S2, No murmurs Abdomen: Bowel Sounds Present, Soft, Non Tender, Non-Distended, No Hepato-splenomegaly Extremities: No clubbing, No cyanosis, No edema, Capillary Refill Less than 3 Seconds Skin: No rashes, No breakdown Musculoskeletal: No Tenderness to Palpation of Joints or Extremities Lymphatic: No Cervical, Supraclavicular, or Inguinal Adenopathy Neurological: Cranial nerves II-XII grossly intact, Neuro grossly intact, Motor Exam 5/5 strength throughout Psych/Mental Status: Normal Affect, Appropriate, Alert and oriented to time, place, person, mood and affect Current Medications Acetaminophen (Tylenol) 650 mg PO Q6H PRN PRN PRN Reason: Pain Score 1-10/Temp > 100.7 F Buprenorphine HCl (Buprenorphine Hcl) 2 mg SL Q8H [facility]; Taper Stop: 03/08/19 06:29 Last Admin: 03/06/19 09:41 Dose: 2 mg Documented by: Buspirone HCl (Buspar) 15 mg PO TID [facility] Last Admin: 03/06/19 06:18 Dose: 15 mg Documented by: Clonidine (Catapres) 0.1 mg PO Q2H PRN PRN PRN Reason: Hot/Cold Sweats or Anxiety Last Admin: 03/06/19 09:41 Dose: 0.1 mg Documented by: Dextrose (D50w Syringe) 0 gm IV X1 PRN; Protocol PRN Reason: Hypoglycemia Dicyclomine HCl (Bentyl) 20 mg PO Q6H PRN PRN PRN Reason: Abdominal Discomfort Doxepin HCl (Sinequan) 25 mg PO QHS [facility] Last Admin: 03/05/19 21:47 Dose: 25 mg Documented by: Glucagon () 1 mg IM .X1 PRN PRN Reason: Hypoglycemia Hydroxyzine HCl (Vistaril Vial) 50 mg IM Q6H PRN PRN PRN Reason: Breakthrough Anxiety Hydroxyzine Pamoate (Vistaril Pamoate Capsule) 50 mg PO Q6H PRN PRN PRN Reason: Mild Anxiety Melatonin (Melatonin) 3 mg PO QHS [facility] Last Admin: 03/05/19 21:47 Dose: 3 mg Documented by: Methocarbamol (Methocarbamol) 750 mg PO Q6H PRN PRN PRN Reason: Muscle Aches Last Admin: 03/06/19 09:41 Dose: 750 mg Documented by: Nicotine (Nicoderm Cq (Pbkc)) 21 mg TRANSDERM. DAILY [facility] Last Admin: 03/06/19 02:02 Dose: 21 mg Documented by: Nutritional Formula (Lactose Free) (Ensure Enlive) 120 ml PO 4X/DAY [facility] Last Admin: 03/05/19 21:51 Dose: 120 ml Documented by: Ondansetron HCl (Zofran) 4 mg IV Q8H PRN PRN PRN Reason: NAUSEA/VOMITING Pramipexole Dihydrochloride (Mirapex) 0.25 mg PO Q12H PRN PRN PRN Reason: Restless Legs Last Admin: 03/05/19 02:47 Dose: 0.25 mg Documented by: Sodium Chloride () 10 - 40 ml IV UD PRN PRN Reason: SALINE FLUSH Last Admin: 03/06/19 06:18 Dose: 10 ml Documented by: STROKE Vital Signs/Narrative: Vital Signs Temp Pulse Resp BP Pulse Ox 03/06/19 06:22 98.0 F 75 15 105/64 94 Medical Necessity - Tobacco Use Smoking Status: Current every day smoker Assessment/Plan All Active Problems (Last Reviewed 03/05/19 @ 04:41 by Sushil Zhang MD) Desire for detoxification (Acute) Withdrawal from opioids (Acute) 1. Acute opioid withdrawal currently on opioid withdrawal protocol for buprenorphine on zofran prn monitor CINA score 2. Nicotine dependence: on nicotine patch 3. Depression and anxiety: on doxepin and buspar DVT Prophylaxis: low risk; encourage ambulation Disposition: wants to go to [facility] for inpatient rehab. Wishes to be discharged Friday so he can go there straight from here, since he doesnt have anywhere else to go if discharged tomorrow. Code Visit Inpatient E&M: 38765 Subs Hosp L2
[2019-03-06] MEDS: Pramipexole Di-HCl 0.25 MG Tablet PO (15:19)
[2019-03-06] MEDS: Acetaminophen 325 MG Tablet 650 MG PO (15:19)
[2019-03-06] MEDS: hydrOXYzine PAM 25 MG Capsule 50 MG PO (15:20)
[2019-03-06 18:35] VITALS: BP 124/64; PULSE 92; RESP 16; TEMP 36.7; O2SAT 95
[2019-03-06 23:00] VITALS: BP 102/50; PULSE 64; RESP 16; TEMP 37; O2SAT 98
[2019-03-06] MEDS: MELATONIN 3 MG TABLET PO (23:00)
[2019-03-06] MEDS: Doxepin Hcl 25 MG Capsule PO (23:01)
[2019-03-07] MEDS: Buprenorphine HCl 2 MG TAB.SUBL SL ×2 (06:08→18:58)
[2019-03-07] MEDS: busPIRone 15 MG TABLET PO ×3 (06:08→22:23)
[2019-03-07 06:10] VITALS: BP 96/60; PULSE 79; RESP 20; TEMP 36.9; O2SAT 96
--- NOTE | 2019-03-07 09:39 | PCM.PN.HOSP ---
Patient Problems: Active and Suspected Problems (Last Reviewed 03/05/19 @ 04:41 by Sushil Zhang MD) Desire for detoxification (Acute) Subjective: Patient seen and examined. He feels well and has no complaints. Review of systems otherwise negative. He is awaiting discharge tomorrow to go to [facility] for rehab. Vitals/I&O's: Vital Signs Temp Pulse Resp BP Pulse Ox 98.5 F 79 20 H 96/60 96 03/07/19 06:10 03/07/19 06:10 03/07/19 06:10 03/07/19 06:10 03/07/19 06:10 Oxygen Delivery Method Room Air Weight: 171 lb 15.369 oz Body Mass Index (BMI) 21.4 Intake and Output for Last 24 Hours 03/05/19 03/06/19 03/07/19 23:59 23:59 23:59 Intake Total 1500 / 1940 2240 / 2240 800 / 800 Balance 1500 / 1940 2240 / 2240 800 / 800 General: Alert, Oriented x3, Cooperative, No apparent distress HEENT: Atraumatic, PERRLA, EOMI, Normocephalic Oral: Moist Mucosa Neck: Supple, No JVD, Negative Carotid Bruits Lungs: Clear to auscultation, Normal air movement, No rhonchi, No wheeze Cardiovascular: Regular rate, Regular Rhythm, Normal S1, Normal S2, No murmurs Abdomen: Bowel Sounds Present, Soft, Non Tender, Non-Distended, No Hepato-splenomegaly Extremities: No clubbing, No cyanosis, No edema, Capillary Refill Less than 3 Seconds Skin: No rashes, No breakdown Musculoskeletal: No Tenderness to Palpation of Joints or Extremities Lymphatic: No Cervical, Supraclavicular, or Inguinal Adenopathy Neurological: Cranial nerves II-XII grossly intact, Neuro grossly intact, Motor Exam 5/5 strength throughout Psych/Mental Status: Normal Affect, Appropriate, Alert and oriented to time, place, person, mood and affect Current Medications Acetaminophen (Tylenol) 650 mg PO Q6H PRN PRN PRN Reason: Pain Score 1-10/Temp > 100.7 F Last Admin: 03/06/19 15:19 Dose: 650 mg Documented by: Buprenorphine HCl (Buprenorphine Hcl) 2 mg SL Q12H DI; Taper Stop: 03/08/19 06:29 Last Admin: 03/07/19 06:08 Dose: 2 mg Documented by: Buspirone HCl (Buspar) 15 mg PO TID [facility] Last Admin: 03/07/19 06:08 Dose: 15 mg Documented by: Clonidine (Catapres) 0.1 mg PO Q2H PRN PRN PRN Reason: Hot/Cold Sweats or Anxiety Last Admin: 03/06/19 15:19 Dose: 0.1 mg Documented by: Dextrose (D50w Syringe) 0 gm IV X1 PRN; Protocol PRN Reason: Hypoglycemia Dicyclomine HCl (Bentyl) 20 mg PO Q6H PRN PRN PRN Reason: Abdominal Discomfort Doxepin HCl (Sinequan) 25 mg PO QHS [facility] Last Admin: 03/06/19 23:01 Dose: 25 mg Documented by: Glucagon () 1 mg IM .X1 PRN PRN Reason: Hypoglycemia Hydroxyzine HCl (Vistaril Vial) 50 mg IM Q6H PRN PRN PRN Reason: Breakthrough Anxiety Hydroxyzine Pamoate (Vistaril Pamoate Capsule) 50 mg PO Q6H PRN PRN PRN Reason: Mild Anxiety Last Admin: 03/06/19 15:20 Dose: 50 mg Documented by: Melatonin (Melatonin) 3 mg PO QHS [facility] Last Admin: 03/06/19 23:00 Dose: 3 mg Documented by: Methocarbamol (Methocarbamol) 750 mg PO Q6H PRN PRN PRN Reason: Muscle Aches Last Admin: 03/06/19 09:41 Dose: 750 mg Documented by: Nicotine (Nicoderm Cq (Pbkc)) 21 mg TRANSDERM. DAILY [facility] Last Admin: 03/06/19 02:02 Dose: 21 mg Documented by: Nicotine Polacrilex ([place] Nicotine (Bkc)) 2 mg PO Q2H PRN PRN PRN Reason: withdrawal Nutritional Formula (Lactose Free) (Ensure Enlive) 120 ml PO 4X/DAY [facility] Last Admin: 03/06/19 23:01 Dose: 120 ml Documented by: Ondansetron HCl (Zofran) 4 mg IV Q8H PRN PRN PRN Reason: NAUSEA/VOMITING Pramipexole Dihydrochloride (Mirapex) 0.25 mg PO Q12H PRN PRN PRN Reason: Restless Legs Last Admin: 03/06/19 15:19 Dose: 0.25 mg Documented by: Sodium Chloride () 10 - 40 ml IV UD PRN PRN Reason: SALINE FLUSH Last Admin: 03/06/19 06:18 Dose: 10 ml Documented by: STROKE Vital Signs/Narrative: Vital Signs Temp Pulse Resp BP Pulse Ox 03/07/19 06:10 98.5 F 79 20 H 96/60 96 Medical Necessity - Tobacco Use Smoking Status: Current every day smoker Assessment/Plan All Active Problems (Last Reviewed 03/05/19 @ 04:41 by Sushil Zhang MD) Desire for detoxification (Acute) Withdrawal from opioids (Acute) 1. Acute opioid withdrawal currently on opioid withdrawal protocol with buprenorphine on zofran prn monitor CINA score 2. Nicotine dependence: on nicotine patch 3. Depression and anxiety: on doxepin and buspar DVT Prophylaxis: low risk; encourage ambulation Disposition: for DC tomorrow to go to [facility] for inpatient rehab. Code Visit Inpatient E&M: 11892 Subs Hosp L2
[2019-03-07 12:00] VITALS: BP 109/79; PULSE 90; RESP 18; TEMP 36.7; O2SAT 97
--- NOTE | 2019-03-07 14:10 | NURSING ---
entered pt room. resting on right side. awoke when approached bed to see if sleeping. informed pt that Dr. Gonzalez was not ordering any additional PRN meds for pt. Pt not happy about this. Informed pt that I was he has not had any PRN meds since 1500 yesterday 03/06. asked if he would like something. pt states no. informed pt that he is not due for his subutex until 1829. pt understands. re-stated that when ever he needs any meds to let us know because he is due at anytime for PRN meds.
[2019-03-07] MEDS: hydrOXYzine PAM 25 MG Capsule 50 MG PO (16:22)
[2019-03-07] MEDS: cloNIDine HCl 0.1 MG Tablet PO ×2 (16:22→22:23)
[2019-03-07 16:27] VITALS: BP 111/96; PULSE 99; RESP 18; TEMP 36.7; O2SAT 98
--- NOTE | 2019-03-07 17:24 | NURSING ---
At 1100 this morning, pt was very anxious, this nurse had offered all of his prn's. Pt refused. they dont help and it made me feel funny. This nurse offered to stagger medicine and not give all at once. Pt still continued to refuse. This nurse talked to Dr. Gonzalez about giving something else to help more or less with anxiety, Dr. Gonzalez did not feel comfortable with giving something else. Later on this evening around 1530, pt got more agitated. Wanted to go out for a smoke. this nicotine patch aint doing nothing. Re-inforced No smoking, vaping policy. Pt agreed to take anything I could give him for anxiety. Vistaril was given.
[2019-03-07 22:13] VITALS: BP 127/88; PULSE 96; RESP 16; TEMP 36.4; O2SAT 97
[2019-03-07] MEDS: Doxepin Hcl 25 MG Capsule PO (22:23)
[2019-03-07] MEDS: Acetaminophen 325 MG Tablet 650 MG PO (22:23)
[2019-03-07] MEDS: MELATONIN 3 MG TABLET PO (22:23)
[2019-03-07] MEDS: Pramipexole Di-HCl 0.25 MG Tablet PO (22:23)
[2019-03-07] MEDS: Dicyclomine 10 MG Capsule 20 MG PO (22:26)
[2019-03-08 02:12] VITALS: BP 120/67; PULSE 70; RESP 16; TEMP 36.4; O2SAT 95
[2019-03-08] MEDS: busPIRone 15 MG TABLET PO (06:24)
--- NOTE | 2019-03-08 07:30 | PCM.DC ---
- Discharge Diagnoses Current Active Problems: Current Active and Chronic Problems (Last Reviewed 03/05/19 @ 04:41 by Sushil Zhang MD) (1) Acute Opiate Withdrawal (2) Hepatitis C, B (3) Tobacco dependence (4) Polysubstance (including opioids) dependence with physiological dependence (5) Methamphetamine dependence You will use the following diet at home:: No restrictions Your food should be the consistency of: Regular Your liquids should be the consistency of: Regular/Thin Discharge Activity: Return to Normal Activity Weight Bearing Status: Weight bearing as tolerated Call your doctor if you observe: Fever of 101 or Higher, Inability to urinate, Inability to have a bowel movement, Shortness of breath, Dizziness, Fainting spells, Chest pain, Uncontrolled pain Instructions: Understanding Hepatitis C (HCV), Understanding Hepatitis B (HBV), Treating Hepatitis B (HBV), Treating Hepatitis C (HCV), Why Do You Smoke?, Planning to Quit Smoking, Getting Support for Quitting Smoking, Coping with Smoking Withdrawal Additional Instructions: Please continue at [facility] in [place] for rehabilitation continuation. Once you have been documented clean and sober x > 6 months you may be considered a candidate for treatment of your hepatitis. Please continue to follow outpatient with your primary care physician to establish with gastroenterology or infectious disease if appropriate. Allergies/Adverse Reactions: Allergies No Known Allergies Allergy (Verified 03/04/19 23:04) Medications to take at Discharge Doxepin HCl 25 mg PO QHS 03/04/19 busPIRone [Buspar] 15 mg PO TID 03/04/19 Primary Care Physician: Care Physician,No Primary [Primary Care Provider] - Please follow up with your Primary Care Physician in: Please establish with primary care as noted, recommend within 2-4 weeks. Test Results: Test results from this visit will be discussed in further detail at your follow-up appointment, if applicable. Please Follow Up With: [facility] When: Follow-up as planned with rehab outpatient transition. Proposed Discharge Date: 03/08/19
[2019-03-08 07:34] VITALS: O2SAT 95
--- NOTE | 2019-03-08 07:35 | PCM.DC.SUM ---
Discharge Date and Diagnosis - Problem List Patient Problems: Active and Suspected Problems (Last Reviewed 03/05/19 @ 04:41 by Sushil Zhang MD) Desire for detoxification (Acute) Date of Admission: 03/04/19 Date of Discharge: 03/08/19 - Primary Discharge Diagnosis Active and Suspected Problems (Last Reviewed 03/05/19 @ 04:41 by Sushil Zhang MD) (1) Acute Opiate Withdrawal (2) Hepatitis C, B (3) Tobacco dependence (4) Polysubstance (including opioids) dependence with physiological dependence (5) Methamphetamine dependence - Secondary Discharge Diagnosis Chronic Problems (Last Reviewed 03/05/19 @ 04:41 by Sushil Zhang MD) Hepatitis C (Chronic) Tobacco dependence (Chronic) Polysubstance (including opioids) dependence with physiological dependence (Chronic) Methamphetamine dependence (Chronic) Hospital Course and Treatment Operations: None Procedures: None Summary of Care Provided: The patient is a 34 y/o M w/ PMHx: Hepatitis B, C, Tobacco use, Polysubstance abuse including methamphetamine, Fentanyl and Heroin w/ IVDA concurrently who presented to the [facility] ED on 03/05/19 w/ noted opiate withdrawal onset starting ~ 24 hours following last dose 48 with abdominal pain/cramping, generalized body aches and pains, rhinorrhea, piloerection, fatigue, restless leg, sweating, yawning. He was recently at [facility] for similar presentation and notes since discharged transitioned to snorting his abuse agents instead of IVDA. Patient admitted to [facility], routine labs and UDs obtained, patient initiated and continued on protocol with tapering course of Subutex, as needed Seroquel, Librium, Sinemet, Catapres, Bentyl, Vistaril, IV fluids, IV antiemetics, Tylenol as needed for pain. Encouraged concurrently tobacco cessation w/ NR. Given patient history, during current admission patient currently not candidate for hep C treatment as needs to be clean, sober x 6 months, documented attendance NA or AA meetings, counseling and ongoing negative drug screens. Encouraged continued goal to remain clean, sober with recommended establishment with PCP to continue to monitor. Once clinically treated per protocol, patient per CM/SW assist set up for [facility] for rehab. DAY OF DISCHARGE PROGRESS NOTE: Subjective: Patient without acute event overnight per self and nursing report. Patient notes he could tell when he has been de-escalated on the Subutex protocol but otherwise admits to near resolution of withdrawal symptoms. Patient denies fever, chills, nausea, emesis, abdominal pain, chest pain or dyspnea. Patient agreeable to discharge to [facility] for ongoing outpatient rehab. Discussed hepatitis B and C status with patient encouraged follow-up with primary care to establish and closely follow. Objective: T 97.5, heart rate 70, BP 120/67, respiratory rate 16, 95% on room air. Physical Examination: General: awake, alert, oriented x 3 and cooperative, seated upright in the bed, NAD. Skin: normal color, turgor, no icterus, cyanosis. HEENT: AT/NC, EOMI, PERRLA, MMM. Lungs: CTA bilaterally, moderate effort, moderate decrease BL bases, no rales, ronchi or wheezing; Heart: Regular rate and rhythm; no gallop, rub audible. Abdomen: soft, NTTP, ND, normal BS, + HM. Extremities: no cyanosis, clubbing, or edema. Neurological: patient awake, alert, oriented x 3; cognitive function appears intact upon questioning,; pupils equally reactive to light and accomodation; cranial nerves II-XII grossly normal, moving all 4 extremities, strength improved, mildly globally decreased secondary to acute presentation. Psychiatric: affect appears Brian, mildly irritated at having to be woken up again, no acute evidence of depressive or anxiety feelings. Assessment and Plan: Please see hospital summary above. Patient Problems: Active and Suspected Problems (Last Reviewed 03/05/19 @ 04:41 by Sushil Zhang MD) Desire for detoxification (Acute) - Physical Exam Vitals/I&O's: Vital Signs Temp Pulse Resp BP Pulse Ox 97.5 F L 70 16 120/67 95 03/08/19 02:12 03/08/19 02:12 03/08/19 02:12 03/08/19 02:12 03/08/19 07:34 Oxygen Delivery Method Room Air Weight: 171 lb 15.369 oz Body Mass Index (BMI) 21.4 Intake and Output for Last 24 Hours 03/06/19 03/07/19 03/08/19 23:59 23:59 23:59 Intake Total 2240 / 2240 1220 / 1820 950 / 950 Balance 2240 / 2240 1220 / 1820 950 / 950 Current Medications Acetaminophen (Tylenol) 650 mg PO Q6H PRN PRN PRN Reason: Pain Score 1-10/Temp > 100.7 F Last Admin: 03/07/19 22:23 Dose: 650 mg Documented by: Buspirone HCl (Buspar) 15 mg PO TID [facility] Last Admin: 03/08/19 06:24 Dose: 15 mg Documented by: Clonidine (Catapres) 0.1 mg PO Q2H PRN PRN PRN Reason: Hot/Cold Sweats or Anxiety Last Admin: 03/07/19 22:23 Dose: 0.1 mg Documented by: Dextrose (D50w Syringe) 0 gm IV X1 PRN; Protocol PRN Reason: Hypoglycemia Dicyclomine HCl (Bentyl) 20 mg PO Q6H PRN PRN PRN Reason: Abdominal Discomfort Last Admin: 03/07/19 22:26 Dose: 20 mg Documented by: Doxepin HCl (Sinequan) 25 mg PO QHS [facility] Last Admin: 03/07/19 22:23 Dose: 25 mg Documented by: Glucagon () 1 mg IM .X1 PRN PRN Reason: Hypoglycemia Hydroxyzine HCl (Vistaril Vial) 50 mg IM Q6H PRN PRN PRN Reason: Breakthrough Anxiety Hydroxyzine Pamoate (Vistaril Pamoate Capsule) 50 mg PO Q6H PRN PRN PRN Reason: Mild Anxiety Last Admin: 03/07/19 16:22 Dose: 50 mg Documented by: Melatonin (Melatonin) 3 mg PO QHS [facility] Last Admin: 03/07/19 22:23 Dose: 3 mg Documented by: Methocarbamol (Methocarbamol) 750 mg PO Q6H PRN PRN PRN Reason: Muscle Aches Last Admin: 03/06/19 09:41 Dose: 750 mg Documented by: Nicotine (Nicoderm Cq (Pbkc)) 21 mg TRANSDERM. DAILY [facility] Last Admin: 03/07/19 22:25 Dose: 21 mg Documented by: Nicotine Polacrilex (Rugby Nicotine (Bkc)) 2 mg PO Q2H PRN PRN PRN Reason: withdrawal Nutritional Formula (Lactose Free) (Ensure Enlive) 120 ml PO 4X/DAY [facility] Last Admin: 03/07/19 22:23 Dose: 120 ml Documented by: Ondansetron HCl (Zofran) 4 mg IV Q8H PRN PRN PRN Reason: NAUSEA/VOMITING Pramipexole Dihydrochloride (Mirapex) 0.25 mg PO Q12H PRN PRN PRN Reason: Restless Legs Last Admin: 03/07/19 22:23 Dose: 0.25 mg Documented by: Sodium Chloride () 10 - 40 ml IV UD PRN PRN Reason: SALINE FLUSH Last Admin: 03/06/19 06:18 Dose: 10 ml Documented by: Discharge Activity: Return to Normal Activity Weight Bearing Status: Weight bearing as tolerated Call your doctor if you observe: Fever of 101 or Higher, Inability to urinate, Inability to have a bowel movement, Shortness of breath, Dizziness, Fainting spells, Chest pain, Uncontrolled pain Home Medications: Medications to take at Discharge Doxepin HCl 25 mg PO QHS 03/04/19 busPIRone [Buspar] 15 mg PO TID 03/04/19 Primary Care Physician: Care Physician,No Primary [Primary Care Provider] - Please follow up with your Primary Care Physician in: Please establish with primary care as noted, recommend within 2-4 weeks. Please Follow Up With: [facility] When: Follow-up as planned with rehab outpatient transition. Patient Instructions: Understanding Hepatitis C (HCV), Treating Hepatitis C (HCV), Treating Hepatitis B (HBV), Understanding Hepatitis B (HBV), Why Do You Smoke?, Planning to Quit Smoking, Getting Support for Quitting Smoking, Coping with Smoking Withdrawal Disposition: Home Minutes spent on discharge:: 35 Patient Condition:: Fair Medical Necessity - Tobacco Use Smoking Status: Current every day smoker Meaningful Use Info Meaningful Use Diagnoses (Choose all that apply): None applicable Code Visit Inpatient E&M: 48343 Disch Hosp
[2019-03-08 08:24] VITALS: BP 103/64; PULSE 70; RESP 18; TEMP 37.3; O2SAT 100
--- NOTE | 2019-03-08 08:32 | NURSING ---
entered room greeted by smoke odor, pt denies smoking, informed he is not allowed to smoke here. He said he knows and he didn't smoke, and that no one else was in the room, it must have come through the pipes.
[2019-03-08] MEDS: cloNIDine HCl 0.1 MG Tablet PO (08:38)
--- NOTE | 2019-03-08 09:40 | CASEMGMT ---
Addendum entered by Shirley Head 03/08/19 10:33: SW again asked pt if he would like this worker to arrange transportation or call insurance to arrange transportation to [facility] or [facility]. Again pt denied, stating I can walk to [facility] and then talk to Jeanine there about getting to [facility]. Pt denied this worker calling [facility] or [facility] again. Original Note: Social Work Note Pt is discharging today. SW met with pt to confirm plans. SW asked pt if he has been in contact with [facility]. Pt states that he will be walking to [facility] today and then Jeanine with [facility] will be assisting pt with getting pt to [facility]. SW asked pt if he would like this worker to call [facility] or [facility] and pt denied. 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
== END 2019-03-08 11:09 | disposition home or self-care (01) | DRG 773 ==
LOC: ED 03-05 00:58 → MS3 03-05 01:54
PROVIDERS: Admitting Provider Hospitalist; Emergency Provider Emergency Medicine; Visit Provider Family Medicine
DX: F11.23 Opioid dependence with withdrawal (principal); F17.200 Nicotine dependence, unspecified, uncomplicated; F32.9 Major depressive disorder, single episode, unspecified; F41.9 Anxiety disorder, unspecified; F15.20 Other stimulant dependence, uncomplicated; B18.2 Chronic viral hepatitis C; B19.10 Unspecified viral hepatitis B without hepatic coma; Z59.0 Homelessness
CPT/HCPCS: 80048; 80076; 80307; 80320; 85025; 96361; 96374; 96375; 97802; 99218; 99284; 99406; J7030; A4216; G0378; G0480; J2405

== ENCOUNTER 2019-03-09 13:43 | Emergency (ER) | payer MEDICAID, SELFPAY ==
[2019-03-05 01:55] VITALS: BMI 21.4
[2019-03-09 13:45] VITALS: BP 114/78; PULSE 101; RESP 16; TEMP 36.7; O2SAT 98; BMI 21.9
--- NOTE | 2019-03-09 13:53 | EKG12_ITS ---
Test Reason : WEAKNESS Blood Pressure : / mmHG Vent. Rate : 084 BPM Atrial Rate : 084 BPM P-R Int : 122 ms QRS Dur : 098 ms QT Int : 360 ms P-R-T Axes : 075 080 058 degrees QTc Int : 425 ms Normal sinus rhythm Right atrial enlargement Borderline ECG Confirmed by TRIP WHITFIELD ([id number]), content editor ZACKERY JOHNSTON ([id number]) on 03/14/2019 9:24:33 AM Referred By: DAR Confirmed By:TRIP WHITFIELD
--- NOTE | 2019-03-09 13:56 | ED.VIS.GEN ---
History of Present Illness Chief Complaint: Weakness Informant: Patient Onset: Today Context: Sudden Onset Timing: Intermittent Current Severity: Moderate Maximum Severity: Moderate Narrative: The patient presents to the emergency department with weakness and nausea. The patient was recently hospitalized for opioid and benzodiazepine detox. He was discharged to [facility]. He is like he may be having anxiety attacks. He states that today he had a few episodes where he felt acutely nauseated and lightheaded. It was fleeting in nature. He denies any chest pain. He denies any shortness of breath. He states that he is on doxepin and BuSpar but feels like is not helping his anxiety. He denies being suicidal or homicidal. Prior similar symptoms: Yes Recent Illness/Hospitalization: Yes Past Medical History - Allergies and Home Meds Allergies/Adverse Reactions: Allergies No Known Allergies Allergy (Verified 03/09/19 13:44) Primary Care Physician: Care Physician,No Primary [Primary Care Provider] - Prior records reviewed: Yes Past Medical History: - - Hepatitis, drug abuse Surgical History: no surgical history Smoking Status: Current every day smoker - Family History Maternal Family History: Reports: - - Patient denies any maternal medical history. Paternal Family History: Reports: Cancer - Prostate Review of Systems General: Denies: Chills, Fever, Sweats Eyes: Denies: Visual changes - bilaterally, Diplopia ENT: Denies: Rhinorrhea, Sore throat Cardiovascular: Denies: Chest pain, Palpitations Respiratory: Denies: Dyspnea, Cough, Dyspnea on exertion Gastrointestinal: Reports: Nausea. Denies: Abdominal pain, Vomiting, Diarrhea, Melena, Hematochezia Genitourinary: Denies: Dysuria, Hematuria, Frequency Musculoskeletal: Denies: Back pain, Extremity Pain Skin: Denies: Rash, Wounds Neurological: Denies: Headache, Weakness, Numbness Physical Exam Vital Signs/Narrative: Vital Signs Temp Pulse Resp BP Pulse Ox 03/09/19 13:45 98.1 F 101 H 16 114/78 98 Inital Vital Signs reviewed: Yes General: Well nourished, Well developed, No Acute Distress Head: Normocephalic, Atraumatic Eyes: Perrl, EOMI ENT: Moist mucous membranes, No rhinorrhea Neck: Supple, Nontender Cardiovascular: Regular rate, Regular rhythm, No murmurs Respiratory: No distress, CTA bilaterally, Chest nontender Abdomen: Soft, Nontender, Nondistended, Normal bowel sounds Back: Nontender, Normal Inspection Extremities: Nontender, No edema Skin: Normal color, No rash Neurological: Alert, Oriented x3, Cranial nerves II-XII grossly intact, Normal Strength, Normal Sensation Psychological: Normal affect, Normal Mood Diagnostic/Tx/Re-eval Abnormal Lab Results 03/09/19 03/09/19 14:00 14:00 WBC 3.2 L RBC 4.68 Hgb 14.8 Hct 43.9 MCV 93.8 MCH 31.6 MCHC 33.7 RDW Std Deviation 41.5 RDW Coeff of Clement 12.2 Plt Count 155 MPV 10.7 Immature Gran % (Auto) 0.600 Neut % (Auto) 51.8 Lymph % (Auto) 29.7 Bland % (Auto) 16.7 H Eos % (Auto) 0.3 Baso % (Auto) 0.9 Absolute Neuts (auto) 1.7 L Absolute Lymphs (auto) 0.96 Nucleated RBC % 0 Differential Comment @ Sodium 136 Potassium 4.5 Chloride 100 Carbon Dioxide 31.0 Anion Gap 5 BUN 22 H Creatinine 1.15 Estim Creat Clear Calc 99.70 Est GFR (MDRD) Af Amer 93 Est GFR (MDRD) Non-Af 77 BUN/Creatinine Ratio 19.1 Glucose 143 H Calcium 9.4 Total Bilirubin 0.70 AST 164 H ALT 250 H Alkaline Phosphatase 129 H Total Protein 7.9 Albumin 3.6 Globulin 4.3 H Albumin/Globulin Ratio 0.8 L - Rhythm Strip Rhythm Strip: Sinus Rhythm Rate: 70 Ectopy: None - EKG Initial EKG Interpretation: Sinus Rhythm, No Acute Injury Pattern Prior: Unchanged - Medical Decision Making The patient symptoms do seem anxiety mediated. His exam is benign. He had no chest pain. EKG was obtained which was sinus rhythm without acute ischemia. Screening labs are obtained. The patient has a mild leukopenia, but given his recent diagnosis of hepatitis and elevation of his LFTs I do feel that this is more consistent with a viral process. He was given fluids and Phenergan. Reevaluation, the patient is resting comfortably and is symptom-free. He has already been for medical detox. He has no evidence of acute withdrawal. His vitals are reassuring. His work-up is reassuring. At this point, I do feel that he is safe for discharge. Impression 1. Anxiety 2. Nausea ED Disposition - Plan for ED Patient: Instructions: WEAKNESS, Unk Cause Referrals: Care Physician,No Primary [Primary Care Provider] -
[2019-03-09 14:10] LABS: Absolute Lymphocyte Count 0.96 X10^3/uL (0.83-4.51); Absolute Neutrophil Count 1.7 X10^3/uL (2.0-7.7); Basophil# 0.03 X10^3/uL; Basophil% 0.9 % (0-1); Eosinophil# 0.01 X10^3/uL; Eosinophils% 0.3 % (0-5); Hematocrit 43.9 % (40-54); Hemoglobin 14.8 g/dL (13.0-16.5); Lymphocyte # 0.96 X10^3/ul (4.0); Lymphocyte % 29.7 % (19-41); Mean Corp Hgb Conc 33.7 g/dL (32-36); Mean Corpuscular Hgb 31.6 pg (27.0-32.0); Mean Corpuscular Volume 93.8 fL (80-94); Mean Platelet Vol. 10.7 fl (6.2-12.0); Monocyte# 0.54 X10^3/uL; Monocyte% 16.7 % (0-10); NRBC Flagged by Analyzer 0 % (0-5); Neutrophil # 1.67 X10^3/uL (2.7-7.7); Neutrophil % 51.8 % (47-70); POSITIVE MORPHOLOGY YES; Platelet Count 155 K/mm3 (150-450); RBC Distribution Width CV 12.2 % (11.6-14.6); RBC Distribution Width SD 41.5 fl (35.1-43.9); Red Blood Count 4.68 M/mm3 (4.6-6.2); White Blood Count 3.2 K/mm3 (4.4-11.0)
[2019-03-09] MEDS: 0.9% Normal Saline 1,000 ML 1000 ML IV (14:11)
[2019-03-09 14:12] LABS: Differential Indicated SCAN CRITERIA MET
[2019-03-09] MEDS: proMETHazine 25 MG/ML Syringe 12.5 MG IV (14:12)
--- NOTE | 2019-03-09 14:13 | NURSING ---
NO OLD EKGS
[2019-03-09 14:29] LABS: ALB/GLOB Ratio 0.8 RATIO (0.9-2.4); AST(SGOT) 164 U/L (15-37); Alanine Aminotransfer ALT/SGPT 250 U/L (16-61); Albumin, Serum 3.6 g/dL (3.2-5.0); Alkaline Phosphatase 129 U/L (45-117); Anion Gap 5 (5-15); BUN 22 mg/dL (7-18); BUN/Creat Ratio 19.1 RATIO (10-20); Calcium,Total 9.4 mg/dL (8.5-10.1); Chloride 100 mmol/L (98-107); Creatinine, Serum 1.15 mg/dL (0.70-1.30); EST Glomerular Filtration Rate 77 mL/min (>60); Est Glom Filt Rate - Afr Amer 93 mL/min (>60); Globulin 4.3 g/dL (2.2-4.2); Glucose 143 mg/dL (74-106); Potassium 4.5 mmol/L (3.5-5.1); Protein, Total 7.9 g/dL (6.4-8.2); Sodium Level 136 mmol/L (136-145)
[2019-03-09 15:19] VITALS: BP 95/58; PULSE 76; RESP 18; O2SAT 98
== END 2019-03-09 15:24 | disposition home or self-care (01) ==
LOC: ED 14:04
PROVIDERS: Emergency Provider Emergency Medicine
DX: F41.9 Anxiety disorder, unspecified (principal); R11.0 Nausea; D72.819 Decreased white blood cell count, unspecified; R53.1 Weakness; F17.200 Nicotine dependence, unspecified, uncomplicated; Z79.899 Other long term (current) drug therapy; Z86.19 Personal history of other infectious and parasitic diseases
CPT/HCPCS: 80053; 85025; 93005; 96361; 96374; 99285; J7030; A4216

== ENCOUNTER → 2019-05-21 10:15 | Outpatient (CLI) | payer MEDICAID, SELFPAY ==
[2019-05-21 10:01] VITALS: BMI 22.6
[2019-05-21 13:10] LABS: AST(SGOT) 73 U/L (15-37); Alanine Aminotransfer ALT/SGPT 176 U/L (16-61); Albumin, Serum 3.9 g/dL (3.2-5.0); Alkaline Phosphatase 101 U/L (45-117); Anion Gap 2 (5-15); BUN 14 mg/dL (7-18); BUN/Creat Ratio 13.3 RATIO (10-20); Calcium,Total 8.9 mg/dL (8.5-10.1); Chloride 110 mmol/L (98-107); Creatinine, Serum 1.05 mg/dL (0.70-1.30); EST Glomerular Filtration Rate 85 mL/min (>60); Est Glom Filt Rate - Afr Amer 103 mL/min (>60); Glucose 90 mg/dL (74-106); Potassium 4.6 mmol/L (3.5-5.1); Protein, Total 7.9 g/dL (6.4-8.2); Sodium Level 141 mmol/L (136-145)
== END ==
PROVIDERS: PCP Internal Medicine; Referring Provider Internal Medicine; Visit Provider Internal Medicine
DX: B19.20 Unspecified viral hepatitis C without hepatic coma (principal)
CPT/HCPCS: 36415; 80053

== ENCOUNTER 2019-09-25 19:39 | Emergency (ER) | payer MEDICAID, SELFPAY ==
[2019-05-21 10:01] VITALS: BMI 22.6
[2019-09-25 19:40] VITALS: BP 88/67; PULSE 84; RESP 16; TEMP 36.6; O2SAT 100
--- NOTE | 2019-09-25 19:54 | CT_ITS ---
STUDY: CT UPPER EXTREMITY WITH CONTRAST RIGHT REASON FOR EXAM: Male, 34 years old. CELLULITIS FROM INJECTION OF DRUGS IN RIGHT AC, PT UNABLE TO BEND HIS ELBOW RADIATION DOSAGE (If Supplied By Facility): CTDIvol = ( 24.58 ) mGy, DLP = ( 904.79 ) mGycm. Individualized dose optimization techniques were used for this CT.? TECHNIQUE: Axial images obtained from the mid humerus to the wrist following the intravenous administration of 100 cc Isovue-370. Orthogonal reformats were performed. COMPARISON: None. FINDINGS: Limited due to positioning/limited range of motion. True axial images not obtained. No demonstrated fracture or dislocation. There is a 1.5 x 1.2 x 1.9 cm rim enhancing collection in the anteromedial soft tissues of the elbow at the level of the distal humerus, anterior to the medial epicondyle. Trace foci of gas are noted adjacent to the collection, possibly secondary to injection. There is extensive low attenuation in the pronator teres muscle consistent with myositis. There is minimal peripheral enhancement. No drainable collection. Moderate subcutaneous edema medially. CT/Extremity Upper WITH Contrast IMPRESSION: 1. Small collection in the medial soft tissues consistent with abscess. 2. Low-attenuation in the pronator teres muscle consistent with myositis. No drainable collection. Electronically Signed: Sharla Chapa MD at 21:37 EDT Tel , Service support ,
[2019-09-25 20:32] LABS: Absolute Lymphocyte Count 1.05 X10^3/uL (0.83-4.51); Basophil# 0.02 X10^3/uL; Basophil% 0.3 % (0-1); Eosinophil# 0.17 X10^3/uL; Eosinophils% 2.9 % (0-5); Hematocrit 33.7 % (40-54); Hemoglobin 11.8 g/dL (13.0-16.5); Lymphocyte # 1.05 X10^3/ul (4.0); Lymphocyte % 18.2 % (19-41); Mean Corpuscular Hgb 32.4 pg (27.0-32.0); Mean Corpuscular Volume 92.6 fL (80-94); Mean Platelet Vol. 9.8 fl (6.2-12.0); Monocyte# 0.54 X10^3/uL; Monocyte% 9.4 % (0-10); NRBC Flagged by Analyzer 0 % (0-5); Neutrophil # 3.98 X10^3/uL (2.7-7.7); Platelet Count 175 K/mm3 (150-450); RBC Distribution Width CV 12.4 % (11.6-14.6); Red Blood Count 3.64 M/mm3 (4.6-6.2); White Blood Count 5.8 K/mm3 (4.4-11.0)
[2019-09-25 20:45] LABS: Anion Gap 5 (5-15); BUN 22 mg/dL (7-18); BUN/Creat Ratio 20.2 RATIO (10-20); Calcium,Total 9.2 mg/dL (8.5-10.1); Chloride 101 mmol/L (98-107); Creatinine, Serum 1.09 mg/dL (0.70-1.30); EST Glomerular Filtration Rate 81 mL/min (>60); Est Glom Filt Rate - Afr Amer 98 mL/min (>60); Estimated Creatinine Clearance 96.08 ml/min; Glucose 101 mg/dL (74-106); Potassium 3.9 mmol/L (3.5-5.1); Sodium Level 135 mmol/L (136-145)
--- NOTE | 2019-09-25 21:01 | ED.DCSUM_ITS ---
- ER Visit Summary Date of Service: 09/25/19 Chief Complaint: [Redness and swelling to right arm] History of Present Illness: The patient is a 34 M [presents to the emergency department with redness and swelling to the right arm that started today. Patient states that he injected heroin and meth about 3 days ago. Patient is in disbelief because he felt like he had a good flash of blood when he injected and did not feel like he missed the vein. He denies any fevers. He denies any chills or sweats. He has otherwise no medical history. She complains of severe pain when trying to flex and move the elbow.] Physical Examination: [HEENT-PERRLA, EOMI. Cranial nerves II through XII grossly intact. TMs clear. Mucous membranes moist. No adenopathy. Cardiovascular-regular rate and rhythm without murmur or ectopy Lungs-clear to auscultation, chest wall stable without crepitus or subcu emphysema Abdomen-normoactive bowel sounds, soft, nontender, no rebound or rigidity, no peritoneal signs. Extremities-intact ?4, normal range of motion, normal pulses, atraumatic. Right elbow-patient has diffuse erythema to the medial aspect of the elbow with some induration noted. No fluctuance. No lymphangitic streaking. He has pain with range of motion flexion extension at the elbow.] Test Results: [CBC with differential showed a normal white count of 5.8, hemoglobin 11.8, hematocrit 34, platelet 175. Chemistries unremarkable.] CT scan of the elbow shows small collection in the medial soft tissues consistent with abscess measuring 1.5 x 1.2 x 1.9 cm. Patient also had low attenuation in the pronator teres muscle consistent with myositis. Emergency Department Course and Treatment: [ Established on arrival. Patient was given vancomycin 1 g IV as well as Unasyn 3 g IV.] Treatment Plan: [I discussed case with patient and gave him results. I discussed case with Dr. Broussard who would be available for consultation in 2 days but will not be available to see the patient tomorrow or take patient to the OR tomorrow. Patient was seen by hospitalist who did not feel comfortable admitting patient here without immediate consultation from surgeon. I was asked to transfer patient to tertiary care center. The patient is refusing transfer to tertiary care center and would like to sign out AGAINST MEDICAL ADVICE. Patient understands that he has an abscess which could lead to sepsis, , or limb loss. Patient is refusing transfer and has capacity to do so.] Disposition: [Patient left AGAINST MEDICAL ADVICE] Impression: [Left elbow soft tissue abscess/cellulitis Myositis of pronator Terrace muscle] This note was generated with [employer] dictation software. It may contain incorrect words, spelling, and punctuation that were not noted in review of the chart prior to signing ED Disposition - Plan for ED Patient: Referrals: Care Physician,No Primary [Primary Care Provider] -
[2019-09-25 21:20] LABS: Lactic Acid 1.8 mmol/L (0.4-1.9)
[2019-09-25] MEDS: Vancomycin IV 1,000 MG/200 ML BAG 200 MG IV (21:32)
--- NOTE | 2019-09-25 21:50 | PCM.HP.STD ---
Problem List (1) Myositis Status: Acute History of Present Illness Date of Admission: 09/25/19 Chief Complaint: right elbow pain The patient is a 34 year old M with a significant history of heroin abuse who presented with right elbow pain. Reportedly he relapsed and started using heroin. Two and half days ago his shots either heroin or methamphetamine in his right antecubital. He reports excruciating bad aching pain. He reports swelling in the arm. He denies any fever or chills. He reports a drug withdrawal symptoms of nausea, reports feeling hot and cold and with restless legs. Upper extremity as CT showed myositis; and small collection in the medial soft tissue consistent with abscess. Emergency department doctor discussed the case with Dr. Broussard, plastic surgeon who said he would not be available until 09/27/2019. Past Medical History Past Medical History (Chronic Problems): Chronic Problems (Last Reviewed 05/21/19 @ 10:01 by Shira Lucas) Hepatitis C (Chronic) Anxiety (Chronic) Hepatitis C (Chronic) Tobacco dependence (Chronic) Polysubstance (including opioids) dependence with physiological dependence (Chronic) Methamphetamine dependence (Chronic) Medical History: Medical History (Last Reviewed 09/25/19 @ 22:[address] Sushil Zhang MD) Hepatitis C (Chronic) B19.20 Anxiety (Chronic) F41.9 Polysubstance dependence (Acute) F19.20 Allergies No Known Allergies Allergy (Verified 09/25/19 20:32) Home Medications: Ambulatory Orders Medication Instructions Recorded Cephalexin [Keflex] 500 mg PO Q6 #40 cap 09/25/19 Naproxen [Naprosyn] 500 mg PO BID PRN #20 tab 09/25/19 Smz/Tmp Ds [Bactrim Ds] 1 tab PO BID #20 tab 09/25/19 Surgical History: Surgical History (Last Reviewed 09/25/19 @ 22:[address] Sushil Zhang MD) No history of previous surgery Surgical History: no surgical history Smoking Status: Current every day smoker Tobacco Use: Cigarettes - *Family History Maternal Family History: Family History (Last Reviewed 09/25/19 @ 22:[address] Sushil Zhang MD) Mother Sleep apnea Depression Father Prostate cancer Grandfather Prostate cancer History Items: - - Patient denies any maternal medical history. Paternal Family History: Family History (Last Reviewed 09/25/19 @ 22:[address] Sushil Zhang MD) Mother Sleep apnea Depression Father Prostate cancer Grandfather Prostate cancer History Items: Cancer - Prostate Review of Systems Constitutional: Reports: Chills. Denies: Fever, Weight Change HEENT: Denies: Head Aches, Sinus Congestion, Sinus Drainage Cardiovascular: Reports: Edema - Right elbow. Denies: Chest Pain, Palpitations Respiratory: Denies: Cough, Shortness of breath at rest, Sputum production Gastrointestinal: Denies: Abdominal Pain, Nausea, Vomiting Genitourinary: Denies: Dysuria Musculoskeletal: Reports: Joint Pain - Right elbow, Joint Tenderness - Right elbow Skin: Denies: Rash, Wounds Neurological: Denies: Numbness, Tingling, Focal weakness Psychiatric: Denies: Anxiety, Depression, Homicidal Ideations, Suicidal Ideations Hematologic/ Lymphatic: Denies: Easy Bruising, Easy Bleeding VTE Information - Inpt Only VTE Present on Admission: No VTE Mechan Device Prophylaxis: None VTE Pharm Prophylaxis ordered?: No Reason prophylaxis not ordered:: Treatment Not Indicated - Patient will not be admitted to the hospital. Patient Problems: Active and Suspected Problems (Last Reviewed 05/21/19 @ 10:01 by Shira Lucas) Myositis (Acute) - Physical Exam Vitals/I&O's: Vital Signs Temp Pulse Resp BP Pulse Ox 98 F 84 16 88/67 L 100 09/25/19 19:40 09/25/19 19:40 09/25/19 19:40 09/25/19 19:40 09/25/19 19:40 Oxygen Delivery Method Room Air Weight: 72.5 kg Body Mass Index (BMI) 20.0 Intake and Output for Last 24 Hours 09/23/19 09/24/19 09/25/19 23:59 23:59 23:59 Intake Total 112 / 112 Balance 112 / 112 General: Alert, Oriented x3, Cooperative, - - In excruciating pain of the right elbow HEENT: Atraumatic, PERRLA, EOMI, Normocephalic Neck: Supple, No JVD, Negative Carotid Bruits Lungs: Clear to auscultation, Normal air movement, No rhonchi, No wheeze, No rales Cardiovascular: Regular rate, Regular Rhythm, Normal S1, Normal S2, No murmurs Abdomen: Bowel Sounds Present, Soft, Non Tender Extremities: Edema - Right elbow, Tenderness - Right elbow Skin: - - Erythema of right antecubital area Musculoskeletal: Tenderness - Right elbow Neurological: Cranial nerves II-XII grossly intact Psych/Mental Status: Agitated, Anxious Laboratory Results 09/25/19 20:15: WBC 5.8, RBC 3.64 L, Hgb 11.8 L, Hct 33.7 L, MCV 92.6, MCH 32.4 H, MCHC 35.0, RDW Std Deviation 42.0, RDW Coeff of Clement 12.4, Plt Count 175, MPV 9.8, Immature Gran % (Auto) 0.200, Neut % (Auto) 69.0, Lymph % (Auto) 18.2 L, [place] % (Auto) 9.4, Eos % (Auto) 2.9, Baso % (Auto) 0.3, Absolute Neuts (auto) 4.0, Absolute Lymphs (auto) 1.05, Nucleated RBC % 0 09/25/19 20:15: Sodium 135 L, Potassium 3.9, Chloride 101, Carbon Dioxide 29.0, Anion Gap 5, BUN 22 H, Creatinine 1.09, Estim Creat Clear Calc 96.08, Est GFR (MDRD) Af Amer 98, Est GFR (MDRD) Non-Af 81, BUN/Creatinine Ratio 20.2 H, Glucose 101, Calcium 9.2 09/25/19 20:15: Lactic Acid 1.8 Assessment/Plan All Active Problems (Last Reviewed 05/21/19 @ 10:01 by Shira Lucas) Myositis (Acute) Polysubstance dependence (Acute) Desire for detoxification (Acute) Withdrawal from opioids (Acute) The patient is a 34 year old M with a significant history of heroin abuse who presented with right elbow pain; inability to extend his right forearm and with radiographic evidence of abscess and myositis of soft tissue at distal humerus.. Abscess and myositis the distal humerus. Start on vancomycin and Unasyn at emergency department I agree. I discussed with patient and emergency department doctor that patient need to be seen by surgeon within the next 24 hours. Since surgeon cannot see patient at hospital within the next 24 hours will recommend outpatient be transferred to a tertiary institution. Patient is insistent that he stays at this hospital. He reports that if he is transferred to an outside hospital he cannot get the money to go back home and may not be able start a job or do a job interview on 09/27/2019. Explained to patient that it is very unlikely that any hospital can admit him and discharge him in 2 days for him to start a job or to go for a job interview. Admitting him without a surgeon see him in the next 24 hours would be below the standard of care. Patient is at risk of losing his arm. Antibiotics alone will not be sufficient to manage his abscess and myositis. Patient may need surgical intervention. Heroin withdrawal Recommend patient be given a pain medication at this time Hypotension On presentation blood pressure was 88/67. Review of old record showed a patient's systolic blood pressure is usually in the 100s to 110s. Repeat blood pressure. Recommend IV hydration at the ED if repeat blood pressure shows a SBP < 90. Office Visits / Consults: [id number] OP Consult L3
[2019-09-25 22:15] VITALS: BP 117/76; PULSE 77; RESP 15; O2SAT 96
[2019-09-25 22:17] VITALS: BP 117/76; PULSE 77; O2SAT 100
--- NOTE | 2019-09-25 22:17 | ED.DEP ---
ED Disposition - Plan for ED Patient: Instructions: ED Abscess Antibiotic Treatment Only, Cellulitis Prescriptions: Smz/Tmp Ds [Bactrim Ds] 1 tab PO BID #20 tab Prescription Printed Cephalexin [Keflex] 500 mg PO Q6 #40 cap Prescription Printed Naproxen [Naprosyn] 500 mg PO BID PRN #20 tab Prescription Printed Referrals: Care Physician,No Primary [Primary Care Provider] - Rey Broussard MD [STAFF PHYSICIAN] - As soon as possible
== END 2019-09-25 22:43 | disposition home or self-care (01) ==
LOC: ED 20:00
PROVIDERS: Emergency Provider Emergency Medicine
DX: L03.114 Cellulitis of left upper limb (principal); M60.9 Myositis, unspecified; F17.200 Nicotine dependence, unspecified, uncomplicated; Z53.29 Procedure and treatment not carried out because of patient's decision for other reasons
CPT/HCPCS: 73201; 80048; 83605; 85025; 87040; 96365; 96367; 99284; J7030; Q9967; A4216; J0295

== ENCOUNTER 2019-09-28 19:37 | Observation (INO) | payer MEDICAID, SELFPAY ==
[2019-09-28 19:38] VITALS: BP 97/49; PULSE 98; RESP 17; TEMP 36.6; O2SAT 100; BMI 20.7
--- NOTE | 2019-09-28 19:46 | EKG12_ITS ---
Test Reason : SUBST ABUSE Blood Pressure : / mmHG Vent. Rate : 085 BPM Atrial Rate : 085 BPM P-R Int : 126 ms QRS Dur : 096 ms QT Int : 352 ms P-R-T Axes : 052 075 053 degrees QTc Int : 418 ms Normal sinus rhythm Minimal voltage criteria for LVH, may be normal variant Borderline ECG Confirmed by TRIP WHITFIELD ([id number]), manuscript editor PARKER SHERIDAN ([id number]) on 10/05/2019 8:08:55 AM Referred By: DAR Confirmed By:TRIP WHITFIELD
[2019-09-28] MEDS: 0.9% Normal Saline 1,000 ML 1000 ML IV (20:08)
[2019-09-28 20:12] LABS: Absolute Lymphocyte Count 0.41 X10^3/uL (0.83-4.51); Absolute Neutrophil Count 4.6 X10^3/uL (2.0-7.7); Basophil# 0.02 X10^3/uL; Basophil% 0.4 % (0-1); Differential Indicated SCAN CRITERIA MET; Eosinophil# 0.09 X10^3/uL; Eosinophils% 1.7 % (0-5); Hematocrit 38.2 % (40-54); Hemoglobin 12.9 g/dL (13.0-16.5); Lymphocyte # 0.41 X10^3/ul (4.0); Lymphocyte % 7.6 % (19-41); Mean Corp Hgb Conc 33.8 g/dL (32-36); Mean Corpuscular Hgb 32.2 pg (27.0-32.0); Mean Corpuscular Volume 95.3 fL (80-94); Mean Platelet Vol. 9.8 fl (6.2-12.0); Monocyte# 0.24 X10^3/uL; Monocyte% 4.5 % (0-10); NRBC Flagged by Analyzer 0 % (0-5); Neutrophil # 4.58 X10^3/uL (2.7-7.7); Neutrophil % 85.4 % (47-70); POSITIVE DIFFERENTIAL YES; Platelet Count 177 K/mm3 (150-450); RBC Distribution Width CV 12.1 % (11.6-14.6); Red Blood Count 4.01 M/mm3 (4.6-6.2); White Blood Count 5.4 K/mm3 (4.4-11.0)
[2019-09-28 20:38] LABS: Differential Comment SCANNED
[2019-09-28 20:40] LABS: ALB/GLOB Ratio 0.8 RATIO (0.9-2.4); Alanine Aminotransfer ALT/SGPT 132 U/L (16-61); Albumin, Serum 3.4 g/dL (3.2-5.0); Alkaline Phosphatase 144 U/L (45-117); Anion Gap 6 (5-15); BUN 10 mg/dL (7-18); BUN/Creat Ratio 11.6 RATIO (10-20); Chloride 104 mmol/L (98-107); Creatinine, Serum 0.86 mg/dL (0.70-1.30); EST Glomerular Filtration Rate 106 mL/min (>60); Est Glom Filt Rate - Afr Amer 129 mL/min (>60); Globulin 4.2 g/dL (2.2-4.2); Glucose 86 mg/dL (74-106); Protein, Total 7.6 g/dL (6.4-8.2); Sodium Level 138 mmol/L (136-145)
--- NOTE | 2019-09-28 20:47 | ED.VIS.GEN ---
History of Present Illness Chief Complaint: Substance Abuse Informant: Patient Onset: Days Context: Gradual Onset Timing: Continuous Current Severity: Moderate Maximum Severity: Moderate Narrative: The patient presents to the emergency department requesting detox. Patient has a longstanding history of methamphetamine and fentanyl abuse. He states that he normally injects IV. The patient was seen here 3 days ago. At that point, he had an early abscess. They did recommend admission, and attempted this, but the plastic surgeon was going to be out of town over the weekend and he was not going to be able to seen. They recommended transfer, the patient refused. He was placed on Bactrim and Keflex. He states that the redness has markedly improved. He states the abscesses come to the surface. He has not used in about 2 to 3 days. He is been nauseated and very anxious. Prior similar symptoms: Yes Recent Illness/Hospitalization: No Past Medical History - Allergies and Home Meds Allergies/Adverse Reactions: Allergies No Known Allergies Allergy (Verified 09/28/19 19:37) Primary Care Physician: Care Physician,No Primary [Primary Care Provider] - Prior records reviewed: Yes Past Medical History: None Surgical History: no surgical history Smoking Status: Current every day smoker - Family History Maternal Family History: Family History (Last Reviewed 09/25/19 @ 22:[address] Sushil Zhang MD) Mother Sleep apnea Depression Father Prostate cancer Grandfather Prostate cancer Family History: Reports: - - Patient denies any maternal medical history. Paternal Family History: Family History (Last Reviewed 09/25/19 @ 22:[address] Sushil Zhang MD) Mother Sleep apnea Depression Father Prostate cancer Grandfather Prostate cancer Family History: Reports: Cancer - Prostate Review of Systems General: Denies: Chills, Fever, Sweats Eyes: Denies: Visual changes - bilaterally, Diplopia ENT: Denies: Rhinorrhea, Sore throat Cardiovascular: Denies: Chest pain, Palpitations Respiratory: Denies: Dyspnea, Cough, Dyspnea on exertion Gastrointestinal: Denies: Abdominal pain, Nausea, Vomiting, Diarrhea, Melena, Hematochezia Genitourinary: Denies: Dysuria, Hematuria, Frequency Musculoskeletal: Denies: Back pain, Extremity Pain Skin: Denies: Rash, Wounds Neurological: Denies: Headache, Weakness, Numbness Physical Exam Vital Signs/Narrative: Vital Signs Temp Pulse Resp BP Pulse Ox 09/28/19 19:38 97.9 F 98 17 97/49 L 100 Inital Vital Signs reviewed: Yes General: Well nourished, Well developed, No Acute Distress Head: Normocephalic, Atraumatic Eyes: Perrl, EOMI ENT: Moist mucous membranes, No rhinorrhea Neck: Supple, Nontender Cardiovascular: Regular rate, Regular rhythm, No murmurs Respiratory: No distress, CTA bilaterally, Chest nontender Abdomen: Soft, Nontender, Nondistended, Normal bowel sounds Back: Nontender, Normal Inspection Extremities: Nontender, No edema Skin: Normal color, No rash Neurological: Alert, Oriented x3, Cranial nerves II-XII grossly intact, Normal Strength, Normal Sensation Psychological: Normal affect, Normal Mood Diagnostic/Tx/Re-eval Abnormal Lab Results 09/28/19 09/28/19 20:00 20:00 WBC 5.4 RBC 4.01 L Hgb 12.9 L Hct 38.2 L MCV 95.3 H MCH 32.2 H MCHC 33.8 RDW Std Deviation 42.0 RDW Coeff of Clement 12.1 Plt Count 177 MPV 9.8 Immature Gran % (Auto) 0.400 Neut % (Auto) 85.4 H Lymph % (Auto) 7.6 L [place] % (Auto) 4.5 Eos % (Auto) 1.7 Baso % (Auto) 0.4 Absolute Neuts (auto) 4.6 Absolute Lymphs (auto) 0.41 L Nucleated RBC % 0 Differential Comment SCANNED Sodium 138 Potassium 4.0 Chloride 104 Carbon Dioxide 28.0 Anion Gap 6 BUN 10 Creatinine 0.86 Estim Creat Clear Calc 126.30 Est GFR (MDRD) Af Amer 129 Est GFR (MDRD) Non-Af 106 BUN/Creatinine Ratio 11.6 Glucose 86 Calcium 9.0 Total Bilirubin 0.40 AST 166 H ALT 132 H Alkaline Phosphatase 144 H Total Protein 7.6 Albumin 3.4 Globulin 4.2 Albumin/Globulin Ratio 0.8 L - Medical Decision Making The patient presents requesting detox from fentanyl. He states he last used 2 or 3 days ago. He states he has been nauseated, diaphoretic, and very anxious. He is also had loose stool. He is also concerned about his arm abscess. He has the area where the cellulitis was traced out. This has totally resolved. He does have a focal abscess. Patient was consented for incision and drainage. 1% lidocaine with epinephrine was injected locally. A total 4 cc were used. 11 blade was used to incise the area. Copious purulence was able to be expressed and sent for culture. The patient tolerated this without issue. He has done very well on oral antibiotics and I feel like this can be continued. The patient was discussed with the hospitalist for medical detox. Impression 1. Right elbow abscess with incision and drainage 2. Opiate abuse and dependence ED Disposition - Plan for ED Patient: Referrals: Care Physician,No Primary [Primary Care Provider] -
[2019-09-28 20:53] LABS: AST(SGOT) 166 U/L (15-37)
[2019-09-28] MEDS: Bupivacaine Mpf 0.5% 30 ML VIAL INFILT (21:01)
--- NOTE | 2019-09-28 21:09 | HP.PCM_ITS ---
Problem List (1) Myositis Status: Acute (2) Hepatitis C Status: Chronic (3) Anxiety Status: Chronic (4) Polysubstance dependence Status: Acute (5) Desire for detoxification Status: Acute (6) Hepatitis C Status: Chronic (7) Tobacco dependence Status: Chronic (8) Polysubstance (including opioids) dependence with physiological dependence Status: Chronic (9) Withdrawal from opioids Status: Acute (10) Methamphetamine dependence Status: Chronic History of Present Illness Date of Admission: 09/28/19 Chief Complaint: detox and right antecubital swelling The patient is a 34 year old M detox and right antecubital swelling with a significant history of multidrug abuse (methamphetamine; heroin; and fentanyl) who presented to emergency department for detox and right antecubital swelling. Patient shoots aforementioned drugs in his bi-lateral antecubital. The last time that he used methamphetamine was about 3 to 4 days ago. He use fentanyl or heroin the day before last methamphetamine use. He is unsure whether it was fentanyl or heroin that he used since it is difficult to differentiate between these drugs on the market. Patient said that he is in drug withdrawal. He described his withdrawal symptoms as feeling hot and cold; abdominal pain; feeling of something is crawling on his skin; insomnia and restless legs. Reportedly he has found a new job and he has pushed the beginning date of the new job to the end of this month hoping that he can get cleaned of drugs Also patient has a swelling of his right antecubital. Of note patient was at emergency department on 09/25/2019 with swelling and pain as well as erythema of his right antecubital area. CT showed abscess and myositis. Because a plastic surgeon was not available to see patient within the next 24 hours patient was advised to allow for transfer [facility]. However patient refused transfer and sign out AMA at emergency department. At that time he was prescribed p.o. antibiotics. Patient has improvement from the p.o. antibiotics. Past Medical History Past Medical History (Chronic Problems): Chronic Problems (Last Reviewed 09/28/19 @ 22:[address] Sushil Zhang MD) Hepatitis C (Chronic) Anxiety (Chronic) Hepatitis C (Chronic) Tobacco dependence (Chronic) Polysubstance (including opioids) dependence with physiological dependence (Chronic) Methamphetamine dependence (Chronic) Medical History: Medical History (Last Reviewed 09/28/19 @ 22:[address] Sushil Zhang MD) Hepatitis C (Chronic) B19.20 Anxiety (Chronic) F41.9 Polysubstance dependence (Acute) F19.20 Allergies No Known Allergies Allergy (Verified 09/28/19 19:37) Home Medications: Ambulatory Orders Medication Instructions Recorded Cephalexin [Keflex] 500 mg PO Q6 #40 cap 09/25/19 Naproxen [Naprosyn] 500 mg PO BID PRN #20 tab 09/25/19 Smz/Tmp Ds [Bactrim Ds] 1 tab PO BID #20 tab 09/25/19 Surgical History: Surgical History (Last Reviewed 09/28/19 @ 21:[address] Sushil Zhang MD) No history of previous surgery Surgical History: no surgical history Smoking Status: Current every day smoker - *Family History Maternal Family History: Family History (Last Reviewed 09/28/19 @ 21:[address] Sushil Zhang MD) Mother Sleep apnea Depression Father Prostate cancer Grandfather Prostate cancer History Items: - - Patient denies any maternal medical history. Paternal Family History: Family History (Last Reviewed 09/28/19 @ 21:[address] Sushil Zhang MD) Mother Sleep apnea Depression Father Prostate cancer Grandfather Prostate cancer History Items: Cancer - Prostate Review of Systems Constitutional: Reports: Chills. Denies: Fever, Weight Change HEENT: Denies: Head Aches, Sinus Congestion, Sinus Drainage Cardiovascular: Denies: Chest Pain, Palpitations Respiratory: Denies: Cough, Shortness of breath at rest, Sputum production Gastrointestinal: Reports: Abdominal Pain. Denies: Nausea, Vomiting Genitourinary: Denies: Dysuria Musculoskeletal: Denies: Joint Pain, Joint Tenderness Skin: Denies: Rash, Wounds Neurological: Denies: Numbness, Tingling, Focal weakness Psychiatric: Denies: Anxiety, Depression, Homicidal Ideations, Suicidal Ideations Hematologic/ Lymphatic: Denies: Easy Bruising, Easy Bleeding VTE Information - Inpt Only VTE Present on Admission: No VTE Mechan Device Prophylaxis: SCD's VTE Pharm Prophylaxis ordered?: No - Physical Exam Vitals/I&O's: Vital Signs Temp Pulse Resp BP Pulse Ox 97.9 F 98 17 97/49 L 100 09/28/19 19:38 09/28/19 19:38 09/28/19 19:38 09/28/19 19:38 09/28/19 19:38 Oxygen Delivery Method Room Air Weight: 75.2 kg Body Mass Index (BMI) 20.7 General: Alert, Oriented x3, Cooperative HEENT: Atraumatic, PERRLA, EOMI, Normocephalic Neck: Supple, No JVD, Negative Carotid Bruits Lungs: Clear to auscultation, Normal air movement Cardiovascular: Regular rate, No murmurs Abdomen: Bowel Sounds Present, Soft, Non Tender Extremities: No edema, Capillary Refill Less than 3 Seconds, Tenderness - Right antecubital area Skin: - - Erythema and swelling of right antecubital area Musculoskeletal: Tenderness - Right antecubital area, - - Unable to extend right forearm Neurological: Cranial nerves II-XII grossly intact Psych/Mental Status: Normal Affect, Appropriate Laboratory Results 09/28/19 20:00: WBC 5.4, RBC 4.01 L, Hgb 12.9 L, Hct 38.2 L, MCV 95.3 H, MCH 32.2 H, MCHC 33.8, RDW Std Deviation 42.0, RDW Coeff of Clement 12.1, Plt Count 177, MPV 9.8, Immature Gran % (Auto) 0.400, Neut % (Auto) 85.4 H, Lymph % (Auto) 7.6 L, [place] % (Auto) 4.5, Eos % (Auto) 1.7, Baso % (Auto) 0.4, Absolute Neuts (auto) 4.6, Absolute Lymphs (auto) 0.41 L, Nucleated RBC % 0, Differential Comment SCANNED 09/28/19 20:00: Sodium 138, Potassium 4.0, Chloride 104, Carbon Dioxide 28.0, Anion Gap 6, BUN 10, Creatinine 0.86, Estim Creat Clear Calc 126.30, Est GFR (MDRD) Af Amer 129, Est GFR (MDRD) Non-Af 106, BUN/Creatinine Ratio 11.6, Glucose 86, Calcium 9.0, Total Bilirubin 0.40, AST 166 H, ALT 132 H, Alkaline Phosphatase 144 H, Total Protein 7.6, Albumin 3.4, Globulin 4.2, Albumin/Globulin Ratio 0.8 L Assessment/Plan All Active Problems (Last Reviewed 09/28/19 @ 22:[address] Sushil Zhang MD) Myositis (Acute) Polysubstance dependence (Acute) Desire for detoxification (Acute) Withdrawal from opioids (Acute) The patient is a 34 year old M detox and right antecubital swelling with a significant history of multidrug abuse (methamphetamine; heroin; and fentanyl) who presented to emergency department for detox and right antecubital swelling. Abscess and myositis the distal humerus. Received Vancomycin and Unasyn on 09/25/2019 and thereafter a sign out AMA and was prescribed Keflex and Bactrim. He reports compliance. Patient is still unable to stretch his right forearm. His right antecubital fossa was incised at the emergency department and cultures sent. Will start patient on vancomycin and Zosyn. Dr. Broussard, plastic surgeon consult. Meanwhile will keep patient n.p.o. PT to work with patient for arm exercises. Dry dressing to right antecubital area. Narcotic and amphetamine dependence with withdrawal Put on Subutex taper with other adjunctive medications. Tobacco abuse Counseled Nicotine patch prescribed Elevated liver enzymes Patient with a history of hepatitis C Repeat CMP in a.m. DVT Prophylaxis SCD Inpatient E&M: [id number] Init Hosp L3
--- NOTE | 2019-09-28 21:12 | CM.ED ---
Social Work Consult: Substance Abuse Informant: Self-Referral due to reason for ED visit. Met with patient in room. Introduced self and social media marketing specialist role. Patient voicing desire to detox and seeking medical management of detox symptoms through [facility] program. Patient states substance of choice is Fentanyl but to have last used Meth 2-3 days ago. Patient states to have gone through the [facility] program at [facility] 6 months ago and to have been clean since 2-3 days ago when patient became overwhelmed and relapsed. Patient states stressors from loosing job due to COVID-19 and working on finding new job. Patient states to believe that patient has a job at [employer]. Patient states history of Depression drug induced. Patient denies any active suicidal thoughts/plans/intents but is reporting to have a history of suicidal thoughts a while ago. Patient educated on [facility] program and is voicing no further questions/concerns. PLAN: Admit for [facility] program pending approval of admission. Kaden Gibbs MSW, JUAN C
[2019-09-28 21:39] VITALS: BP 105/69; PULSE 90; RESP 18; O2SAT 100
[2019-09-28 21:44] LABS: Amphetamine Urine VISTA NEGATIVE (<1000 ng/mL); Barbiturate Urine VISTA NEGATIVE (< 200 ng/mL); Benzodiazepine Urine VISTA NEGATIVE (< 200 ng/mL); Cocaine Urine VISTA NEGATIVE (< 300 ng/mL); Ecstacy Urine VISTA NEGATIVE (< 500 ng/mL); Methadone Urine VISTA NEGATIVE (< 300 ng/mL); PCP Urine VISTA NEGATIVE (< 25 ng/mL); THC Urine VISTA POSITIVE (< 50 ng/mL); Vista UDS pH Range 6
[2019-09-28 22:03] VITALS: BP 105/69; PULSE 90; RESP 16; TEMP 36.6; O2SAT 100
--- NOTE | 2019-09-28 22:19 | ED.RN ---
signed pt agreement.
[2019-09-28 22:26] VITALS: BMI 20.6
[2019-09-28 22:50] VITALS: BP 100/59; PULSE 76; RESP 16; TEMP 37.2; O2SAT 99
[2019-09-28] MEDS: 0.9% Normal Saline 1,000 ML 75 ML IV (23:14)
[2019-09-28] MEDS: 0.9% Saline Lock 10 ML Syringe IV (23:20)
[2019-09-28] MEDS: Buprenorphine HCl 2 MG TAB.SUBL 4 MG SL (23:42)
--- NOTE | 2019-09-29 00:52 | NURSING ---
Pt got upset and was cursing about being NPO, explained it is d/t eval by Dr. Broussard and possible surgery. He says he had his wound lanced and is getting antibiotics and that was good enough. He says he is not having surgery no matter what. Notified hospitalist, diet order changed to Reg diet.
--- NOTE | 2019-09-29 01:25 | PCM.RX.CS ---
Consult Pharmacy has been consulted to manage selected antiobiotic: Vancomycin Type of Consult: New start Prior Doses of Antibiotics Received/Current Regimen: Medications Vancomycin HCl 1,750 mg/ (Sodium Chloride) 535 mls @ 250 mls/hr IV X1 ONE Stop: 09/29/19 02:08 Last Admin: 09/29/19 00:20 Dose: 250 mls/hr Documented by: Labs: Sodium 138 mmol/L (136-145) 09/28/19 20:00 Potassium 4.0 mmol/L (3.5-5.1) 09/28/19 20:00 Chloride 104 mmol/L (98-107) 09/28/19 20:00 Carbon Dioxide 28.0 mmol/L (21.0-32.0) 09/28/19 20:00 Anion Gap 6 (5-15) 09/28/19 20:00 BUN 10 mg/dL (7-18) 09/28/19 20:00 Creatinine 0.86 mg/dL (0.70-1.30) 09/28/19 20:00 Est GFR (MDRD) Af Amer 129 mL/min (>60) 09/28/19 20:00 Est GFR (MDRD) Non-Af 106 mL/min (>60) 09/28/19 20:00 BUN/Creatinine Ratio 11.6 RATIO (10-20) 09/28/19 20:00 Glucose 86 mg/dL (74-106) 09/28/19 20:00 Weight used for dosin kg Estimated Creatinine Clearance: > 100 Goal Trough: 15-20 mcg/mL Pharmacy Plan for Drug Dosing: Initial vanc dose 1750mg IV x1, continue 1000mg IV q8h per policy with trough prior to 4th dose. Pharmacy Service will continue to monitor and adjust dosing as required. Follow-Up Labs: Trough Vancomycin - 09/29 @ 0730
[2019-09-29 03:00] VITALS: BP 89/67; PULSE 66; RESP 16; TEMP 36.3; O2SAT 97
[2019-09-29 03:23] VITALS: BP 110/72; PULSE 70; RESP 16; TEMP 36.7; O2SAT 98
[2019-09-29 07:24] VITALS: BP 98/60; PULSE 52; RESP 16; TEMP 36.5; O2SAT 100
[2019-09-29] MEDS: Buprenorphine HCl 2 MG TAB.SUBL 4 MG SL (07:41)
--- NOTE | 2019-09-29 07:49 | NURSING ---
Pt reports he is not getting any more labs- not being poked anymore. States that they got blood yesterday and 3 days ago, and that is enough. Pt inquiring about IV atbs and asking when IV can be removed. Pt educated on IV zoysn and vancomycin and that they would pretty much be running all day. Pt refusing to be poked and have only 1 IV access point. Zosyn infusing at this time, vancomycin to be hung immediately after.
[2019-09-29 09:00] VITALS: O2SAT 100
--- NOTE | 2019-09-29 09:54 | NURSING ---
Addendum entered by Linn Shah 09/29/19 12:00: Fauzia Abdullahi NP updated on all information and since patient has not kept agreement for RAMP program will discharge home with prescriptions already received. Dressing was changed to arm x2, by this RN, this shift after doctor and CAVALRY SCOUT assessed. Patient was seen holding can of soda on open wound prior to getting in to place new dressing. When patient was gathering belongings he was angry and complaining and saying that he would just buy Suboxone on the streets. Security had previously been called to assist with escorting patient downstairs. While patient in room preparing to leave he placed both hands up to the camera and placed both middle fingers up, spinning hands and repeatedly saying, Fuck you! Lot Boss had been taken and placed in locked drawer by staff- but was returned with other belongings at time of d/c. Addendum entered by Linn Shah 09/29/19 11:57: Found that 2 of the zip ties (on same end) on patient's belongings bin were removed. Patient denies knowing anything about it and that he didn't do it nor get into belongings. 2nd bin in room still has [address] charter coordinator Rufino in room and found school laboratory technician under patient's mattress. Patient states, how did that get there? It must have fallen out of my clothes when I got here. Original Note: Upon entering patient's room, with mask on, at this time noticed scent of fresh strong cigarette smoke. Notified patient that we are a non smoking facility and that there is oxygen in the geiger. Notified patient that he is putting all of the people in the building at risk if he chooses to defy non smoking order. Patient denies smoking and said that he doesn't even have any on him. Reiterated that we do not take this lightly in the hospital setting. Pt verbalized understanding.
[2019-09-29] MEDS: Vancomycin IV 1,000 MG/200 ML BAG 200 MG IV (10:10)
--- NOTE | 2019-09-29 10:27 | CASEMGMT ---
Social Work Note SW reviewed chart. Pt is at [facility] for detox. SW placed a call to Sarai at [facility] and left message that pt will need to be seen. Shirley Head LEAD BURNER SUPERVISOR, GENERATOR MECHANIC
--- NOTE | 2019-09-29 11:27 | DCINST_ITS ---
You will use the following diet at home:: No restrictions Discharge Activity: Return to Normal Activity Call your doctor if you observe: Fever of 101 or Higher, - - Worsening right arm redness. Additional Instructions: Complete previously prescribed course of Keflex AND Bactrim. Take complete course of both of these medications. Allergies/Adverse Reactions: Allergies No Known Allergies Allergy (Verified 09/28/19 19:37) Medications to take at Discharge Cephalexin [Keflex] 500 mg PO Q6 #40 cap 09/25/19 Naproxen [Naprosyn] 500 mg PO BID PRN #20 tab 09/25/19 Smz/Tmp Ds [Bactrim Ds] 1 tab PO BID #20 tab 09/25/19 Primary Care Physician: Care Physician,No Primary [Primary Care Provider] - Please follow up with your Primary Care Physician in: 1 Week Test Results: Test results from this visit will be discussed in further detail at your follow- up appointment, if applicable. Proposed Discharge Date: 09/29/19
--- NOTE | 2019-09-29 11:30 | DS.PCM_ITS ---
<Fauzia Abdullahi - Last Filed: 09/29/19 12:01> Discharge Date and Diagnosis Date of Admission: 09/28/19 Date of Discharge: 09/29/19 - Primary Discharge Diagnosis Acute Problems: 1. Right anteromedial elbow cellulitis, secondary to IV drug use 2. Polysubstance abuse with opiate withdrawal- non-compliance with detox program 3. Hepatitis C and B 4. Tobacco use - Secondary Discharge Diagnosis Chronic Problems: Chronic Problems (Last Reviewed 09/28/19 @ 22:[address] Sushil Zhang MD) Hepatitis C (Chronic) Anxiety (Chronic) Hepatitis C (Chronic) Tobacco dependence (Chronic) Polysubstance (including opioids) dependence with physiological dependence (Chronic) Methamphetamine dependence (Chronic) Hospital Course and Treatment Operations: None Procedures: None Summary of Care Provided: The patient is a 34 year old M admitted 09/28/2019 due to detox and right antecubital swelling. 1. Right anteromedial elbow cellulitis, secondary to IV drug use-patient initially presented to emergency room 09/24 where he left AGAINST MEDICAL ADVICE. He was prescribed Keflex and Bactrim at that time and reports improvement redness. Upper extremity CT at that time showed no drainable collection. Patient returned to the emergency room 09/27 due to concern for abscess. Patient underwent I&D of abscess in ER. Surrounding redness completely resolved. Patient recommended to be seen by plastic surgery, Dr. Broussard which he adamantly refused. He refused to be n.p.o. in preparation for surgery consult. Patient was initiated on IV vancomycin and IV Zosyn. Cultures from I&D pending. Given improvement, feel continued oral antibiotic treatment with Keflex and Bactrim are sufficient. Instructed patient that if redness returns, he has fever or abscess is not resolved, he needs to return for medical attention. Follow-up with primary care physician in 1 week. 2. Polysubstance abuse with opiate withdrawal- non-compliance with detox program. Patient requested admission for detox in ER. He has a longstanding history of methamphetamine and fentanyl IV drug use. Patient was placed on Subutex taper and withdrawal protocol. Nurse reported she walked into room which smelled like cigarette smoke. Patient denies smoking in room. Nursing also reports zip ties were removed from his black containers which per contract he is not allowed to open during admission. Patient denies opening containers or cigarette use. Nursing found monomer recovery supervisor underneath patient's mattress. Patient very agitated and becoming aggressive with staff. He also states he is not going to follow-up with [facility]. Given patient broke RAMP program contract by breaking into his home container and smoking in his room, patient was discharged home. 3. Hepatitis C and B- outpatient follow up. 4. Tobacco use- encouraged cessation. Patient seen and examined prior to discharge. Physical assessment as noted below. Patient is stable for discharge with follow up recommendations as noted above. This patient was seen by AMARI Hidalgo under the supervision of Dr. Doe. - Physical Exam Vitals/I&O's: Vital Signs Temp Pulse Resp BP Pulse Ox 97.7 F L 52 L 16 98/60 100 09/29/19 07:24 09/29/19 07:24 09/29/19 07:24 09/29/19 07:24 09/29/19 07:24 Oxygen Delivery Method Room Air Weight: 165 lb 2.02 oz Body Mass Index (BMI) 20.6 Intake and Output for Last 24 Hours 09/27/19 09/28/19 09/29/19 23:59 23:59 23:59 Intake Total 1000 / 1120 2628.75 / 2628.75 Balance 1000 / 1120 2628.75 / 2628.75 General: Alert, Oriented x3, Non-Cooperative HEENT: Atraumatic, PERRLA, EOMI, Normocephalic Neck: Supple, No JVD, Negative Carotid Bruits Lungs: Clear to auscultation, Normal air movement Cardiovascular: Regular rate, No murmurs Abdomen: Bowel Sounds Present, Soft, Non Tender Extremities: No edema, Capillary Refill Less than 3 Seconds Skin: - - Right AC area redness resolved. Mild to focal swelling with redness. Musculoskeletal: No Tenderness to Palpation of Joints or Extremities Neurological: Cranial nerves II-XII grossly intact, Neuro grossly intact Psych/Mental Status: Agitated, Anxious, - - Aggressive Laboratory Results 09/28/19 20:00: WBC 5.4, RBC 4.01 L, Hgb 12.9 L, Hct 38.2 L, MCV 95.3 H, MCH 32.2 H, MCHC 33.8, RDW Std Deviation 42.0, RDW Coeff of Clement 12.1, Plt Count 177, MPV 9.8, Immature Gran % (Auto) 0.400, Neut % (Auto) 85.4 H, Lymph % (Auto) 7.6 L, Clarion % (Auto) 4.5, Eos % (Auto) 1.7, Baso % (Auto) 0.4, Absolute Neuts (auto) 4.6, Absolute Lymphs (auto) 0.41 L, Nucleated RBC % 0, Differential Comment SCANNED 09/28/19 20:00: Sodium 138, Potassium 4.0, Chloride 104, Carbon Dioxide 28.0, Anion Gap 6, BUN 10, Creatinine 0.86, Estim Creat Clear Calc 126.30, Est GFR (MDRD) Af Amer 129, Est GFR (MDRD) Non-Af 106, BUN/Creatinine Ratio 11.6, Glucose 86, Calcium 9.0, Total Bilirubin 0.40, AST 166 H, ALT 132 H, Alkaline Phosphatase 144 H, Total Protein 7.6, Albumin 3.4, Globulin 4.2, Albumin/Globulin Ratio 0.8 L 09/28/19 21:10: Urine Opiates Screen NEGATIVE, Urine Methadone Screen NEGATIVE, Ur Barbiturates Screen NEGATIVE, Ur Phencyclidine Scrn NEGATIVE, Ur Amphetamines Screen NEGATIVE, U Methamphetamin-MDMA NEGATIVE, U Benzodiazepines Scrn NEGATIVE, Urine Cocaine Screen NEGATIVE, U Cannabinoids Screen POSITIVE H, Ur Drug Screen Comment Current Medications Buprenorphine HCl (Buprenorphine Hcl) 4 mg SL Q8H DI; Taper Stop: 10/01/19 23:59 Last Admin: 09/29/19 07:41 Dose: 4 mg Documented by: Clonidine (Catapres) 0.1 mg PO Q8H PRN PRN PRN Reason: RESTLESSNESS Dextrose (D50w Syringe) 0 gm IV X1 PRN; Protocol PRN Reason: Hypoglycemia Dicyclomine HCl (Bentyl) 20 mg PO Q6H PRN PRN PRN Reason: Abdominal Discomfort Gabapentin (Neurontin) 300 mg PO Q8H PRN PRN PRN Reason: moderate to severe anxiety Glucagon () 1 mg IM .X1 PRN PRN Reason: Hypoglycemia Hydroxyzine Pamoate (Vistaril Pamoate Capsule) 50 mg PO Q6H PRN PRN PRN Reason: mild anxiety Sodium Chloride () 1,000 mls @ 75 mls/hr IV .[id number] DI Last Infusion: 09/29/19 11:26 Dose: 75 mls/hr Documented by: Vancomycin IV Pharmacy to Dose (1 ea/ Sodium Chloride) 500 mls @ 250 mls/hr IV X1 PRN; Protocol PRN Reason: Rx to Dose Piperacillin Sod/Tazobactam (Sod 3.375 gm/ Sodium Chloride) 50 mls @ 12.5 mls/hr IV Q8 DI Last Infusion: 09/29/19 10:11 Dose: Infused Documented by: Sodium Chloride () 250 mls @ 15 mls/hr IV .[id number] PRN PRN Reason: Saline Flush Sodium Chloride () 250 mls @ 15 mls/hr IV .[id number] PRN PRN Reason: Additional IVPB Infusion Vancomycin HCl (Vancomycin) 1,000 mg in 200 mls @ 200 mls/hr IV Q8H [facility] Last Infusion: 09/29/19 11:26 Dose: Infused Documented by: Loperamide HCl (Imodium) 2 mg PO Q4H PRN PRN PRN Reason: LOOSE STOOLS Methocarbamol (Methocarbamol) 1,500 mg PO Q6H PRN PRN PRN Reason: MUSCLE SPASM Nicotine (Nicoderm Cq (Pbkc)) [address] [facility] Last Admin: 09/29/19 06:00 Dose: 14 mg Documented by: Nutritional Formula (Lactose Free) (Ensure Enlive) 120 ml PO 4X/DAY [facility] Last Admin: 09/29/19 09:50 Dose: 120 ml Documented by: Ondansetron HCl (Zofran) 4 mg IV Q8H PRN PRN PRN Reason: NAUSEA/VOMITING Ondansetron HCl (Zofran) 8 mg PO Q8H PRN PRN PRN Reason: NAUSEA Sodium Chloride () 10 - 40 ml IV UD PRN PRN Reason: SALINE FLUSH Last Admin: 09/28/19 23:20 Dose: 10 ml Documented by: Trazodone HCl (Desyrel) 100 mg PO QHS PRN PRN PRN Reason: INSOMNIA Discharge Diet: No Restrictions Discharge Activity: Return to Normal Activity Call your doctor if you observe: Fever of 101 or Higher, - - Worsening right arm redness. Home Medications: Medications to take at Discharge Cephalexin [Keflex] 500 mg PO Q6 #40 cap 09/25/19 Naproxen [Naprosyn] 500 mg PO BID PRN #20 tab 09/25/19 Smz/Tmp Ds [Bactrim Ds] 1 tab PO BID #20 tab 09/25/19 Primary Care Physician: Care Physician,No Primary [Primary Care Provider] - Please follow up with your Primary Care Physician in: 1 Week Disposition: Home Minutes spent on discharge:: 35 Patient Condition:: Stable Medical Necessity - Tobacco Use Smoking Status: Current every day smoker Meaningful Use Info Meaningful Use Diagnoses (Choose all that apply): None applicable <Elin Doe E - Last Filed: 09/29/19 12:09> Discharge Date and Diagnosis - Secondary Discharge Diagnosis Chronic Problems: Chronic Problems (Last Reviewed 09/28/19 @ 22:[address] 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 Patient was admitted for acute opiate withdrawal for medical stabilization and also for right elbow cellulitis. Patient came to the emergency department 4 days ago for right elbow cellulitis, found to have probable abscess was recommended to stay in the hospital to be seen by surgery but he refused and he left AMA and was given prescription for Keflex and Bactrim. On that day, he had CT scan of the right upper extremity that showed small collection in the medial soft tissue consistent with abscess, low- attenuation in the pronator teres muscle consistent with myositis, no drainable collection. On admission, patient refused surgical consultation and wanted to treat this right elbow cellulitis with probable abscess just by antibiotics. He came back last night requesting admission for acute opiate withdrawal for medical stabilization and he reported that the swelling and erythema of the right elbow improved but still there. Bedside incision and drainage was performed in the ED by the ED physician and patient was started on IV Zosyn and vancomycin. He was started on tapering course of Subutex for medical stabilization for acute opioid withdrawal. During this hospital stay, patient broke his opioid stabilization program contract. Nursing staff reported that patient zip ties were removed and asked as per the contract, he is not allowed to open it during the hospital stay. Patient's nurse reported that she walked into the room and smelled cigarette smoke but patient denies. He became very agitated and aggressive with the staff. He is dated that he is not going to follow-up with [facility] program. Because patient broke RAMP contract, he was discharged home. Recommended to continue taking Keflex and Bactrim to complete the course, follow-up with PCP in 1 week. - Physical Exam General: Alert, Oriented x3, Cooperative, No apparent distress. HEENT: Atraumatic, PERRLA, EOMI. Neck: Supple, No JVD, Negative Carotid Bruits, Trachea Midline, Thyroid Normal. Lungs: Clear to auscultation, Normal air movement, No rhonchi, No wheeze, No rales. Cardiovascular: Regular rate, Regular Rhythm, Normal S1, Normal S2, PMI Normal. Abdomen: Bowel Sounds Present, Soft, Non Tender, Non-Distended, No Hepato- splenomegaly. Extremities: No clubbing, No cyanosis, No edema. Right elbow: Erythema and swelling on the medial aspect of the right elbow, erythema is improving as well as the swelling, no fluctuation. Skin: No rashes, No breakdown Neurological: Neuro grossly intact Vital Signs are stable. This note was generated with Gekko dictation software. It may contain incorrect words, spelling, and punctuation that were not noted in checking the note before signing. - Physical Exam Vitals/I&O's: Vital Signs Temp Pulse Resp BP Pulse Ox 97.7 F L 52 L 16 98/60 100 09/29/19 07:24 09/29/19 07:24 09/29/19 07:24 09/29/19 07:24 09/29/19 09:00 Oxygen Delivery Method Room Air Weight: 165 lb 2.02 oz Body Mass Index (BMI) 20.6 Intake and Output for Last 24 Hours 09/27/19 09/28/19 09/29/19 23:59 23:59 23:59 Intake Total 1000 / 1120 2663.75 / 2663.75 Balance 1000 / 1120 2663.75 / 2663.75 Laboratory Results 09/28/19 20:00: WBC 5.4, RBC 4.01 L, Hgb 12.9 L, Hct 38.2 L, MCV 95.3 H, MCH 32.2 H, MCHC 33.8, RDW Std Deviation 42.0, RDW Coeff of Clement 12.1, Plt Count 177, MPV 9.8, Immature Gran % (Auto) 0.400, Neut % (Auto) 85.4 H, Lymph % (Auto) 7.6 L, Clarion % (Auto) 4.5, Eos % (Auto) 1.7, Baso % (Auto) 0.4, Absolute Neuts (auto) 4.6, Absolute Lymphs (auto) 0.41 L, Nucleated RBC % 0, Differential Comment SCANNED 09/28/19 20:00: Sodium 138, Potassium 4.0, Chloride 104, Carbon Dioxide 28.0, Anion Gap 6, BUN 10, Creatinine 0.86, Estim Creat Clear Calc 126.30, Est GFR ( RD) Af Amer 129, Est GFR (MDRD) Non-Af 106, BUN/Creatinine Ratio 11.6, Glucose 86, Calcium 9.0, Total Bilirubin 0.40, AST 166 H, ALT 132 H, Alkaline Phosphatase 144 H, Total Protein 7.6, Albumin 3.4, Globulin 4.2, Albumin/Globulin Ratio 0.8 L 09/28/19 21:10: Urine Opiates Screen NEGATIVE, Urine Methadone Screen NEGATIVE, Ur Barbiturates Screen NEGATIVE, Ur Phencyclidine Scrn NEGATIVE, Ur Amphetamines Screen NEGATIVE, U Methamphetamin-MDMA NEGATIVE, U Benzodiazepines Scrn NEGATIVE, Urine Cocaine Screen NEGATIVE, U Cannabinoids Screen POSITIVE H, Ur Drug Screen Comment Disposition: Home Minutes spent on discharge:: 28 Patient Condition:: Stable Meaningful Use Info Meaningful Use Diagnoses (Choose all that apply): None applicable Inpatient E&M: 73342 Disch Hosp
--- NOTE | 2019-09-29 11:55 | PHA.DC.MR ---
Pharmacy Service has performed discharge medication reconciliation for this patient. The patient's discharge medication list was reviewed for discrepancies and discrepancies were resolved. Home Medications Cephalexin [Keflex] 500 mg PO Q6 #40 cap 09/25/19 Naproxen [Naprosyn] 500 mg PO BID PRN #20 tab 09/25/19 Smz/Tmp Ds [Bactrim Ds] 1 tab PO BID #20 tab 09/25/19
== END 2019-09-29 11:51 | disposition home or self-care (01) ==
LOC: ED 20:22 → MS3 09-29 07:10
PROVIDERS: Admitting Provider Hospitalist; Emergency Provider Emergency Medicine; Visit Provider Hospitalist
DX: F11.23 Opioid dependence with withdrawal (principal); L03.113 Cellulitis of right upper limb; B18.2 Chronic viral hepatitis C; F15.20 Other stimulant dependence, uncomplicated; F17.210 Nicotine dependence, cigarettes, uncomplicated; L02.413 Cutaneous abscess of right upper limb; M60.9 Myositis, unspecified; Z53.29 Procedure and treatment not carried out because of patient's decision for other reasons; M79.89 Other specified soft tissue disorders; L03.114 Cellulitis of left upper limb; Z91.19 Patient's noncompliance with other medical treatment and regimen
CPT/HCPCS: 10060; 73201; 80048; 80053; 80307; 83605; 85025; 87040; 87070; 87077; 87186; 87205; 93005; 96361; 96365; 96366; 96367; 97802; 99218; 99284; 99285; 99406; J7030; J7040; Q9967; A4216; G0378; J0295

== ENCOUNTER 2020-01-12 16:07 | Emergency (ER) | payer MEDICAID, SELFPAY ==
[2019-12-01 13:34] VITALS: BMI 20.6
[2020-01-12 16:08] VITALS: BP 145/87; PULSE 93; RESP 14; TEMP 36.7; O2SAT 100; BMI 21.5
--- NOTE | 2020-01-12 16:26 | EKG12_ITS ---
Test Reason : CP Blood Pressure : / mmHG Vent. Rate : 096 BPM Atrial Rate : 096 BPM P-R Int : 118 ms QRS Dur : 092 ms QT Int : 342 ms P-R-T Axes : 077 077 065 degrees QTc Int : 432 ms Normal sinus rhythm Nonspecific ST abnormality Abnormal ECG Confirmed by DEEP HILTON, FIDELINA ([id number]), general expeditor LEV BENSON ([id number]) on 01/18/2020 1:06:16 PM Referred By: HERB Confirmed By:FIDELINA ADAME MD
--- NOTE | 2020-01-12 16:35 | RAD_ITS ---
STUDY: X-RAY - UNILATERAL RIBS ( LEFT ) WITH CHEST REASON FOR EXAM: Male, 34 years old. ANTERIOR LEFT CHEST PAIN X1 WEEK, FALL TECHNIQUE - RIBS: 4 view(s) of the ribs. TECHNIQUE - CHEST: PA COMPARISON: None. FINDINGS - RIBS: Normal visualized ribs without a demonstrated fracture. FINDINGS - CHEST: The lungs are clear and expanded. There is no demonstrated pleural abnormality. Normal size heart. Normal mediastinum and john. Normal visualized pulmonary arteries. Normal visualized aortic arch and descending thoracic aorta. Normal visualized thoracic spine. Normal visualized ribs, clavicles, and shoulders. There is no demonstrated abnormality of the visualized soft tissue structures of the upper abdomen. RAD/Ribs Uni Min 3V w/PA Chest IMPRESSION: RIBS: Normal x-ray examination of the ribs. CHEST: Normal x-ray examination of the chest. Electronically Signed: Capo Gandara MD at 16:50 EDT , Service support ,
--- NOTE | 2020-01-12 16:40 | ED.VISSUMM ---
- ER Visit Summary Date of Service: 01/12/20 Chief Complaint: Chest pain History of Present Illness: The patient is a 34 M presenting with chest pain. Patient states this started approximately 1 week ago. Patient has had daily pain for the past week. He states approximately 2 weeks ago he fell onto his left side. He did hit his head but did not lose consciousness. He has pain when he lays on his left side or when he moves. He has pain with deep inspiration. Denies fever or cough. He has mild shortness of breath. He is a smoker. Denies PE/DVT risk factors. He denies other complaints. Physical Examination: Vitals are stable. Patient is afebrile. Alert no acute distress. HEENT exam is unremarkable. Neck is nontender Lungs are clear and equal bilaterally. Left chest wall tenderness with no crepitus Heart is regular rate and rhythm. Abdomen is soft nontender nondistended. Extremities are unremarkable. Skin is warm and dry. No focal neurologic deficit. Remainder of exam is unremarkable. Emergency Department Course and Treatment: EKG is sinus rhythm rate of 96 with no acute ischemic changes. He was given Toradol IV. CBC, chemistries unremarkable. Troponin is negative. D-dimer is elevated 0.73. Left rib series shows RIBS: Normal x-ray examination of the ribs. CHEST: Normal x-ray examination of the chest. Due to elevated d-dimer, CTA chest was obtained and shows suboptimal study due to pulmonary arteries due to less than optimal bolus technique and motion artifact making it difficult to exclude pulmonary emboli. However if strong clinical suspicion would recommend DOPPLER study of the deep venous system of lower extremities and ventilation/perfusion scan for further evaluation if clinically warranted. Tiny calcified granulomata in right lower lobe Venous Doppler bilateral lower extremities was ordered. Patient refuses this test and would like to go home. He signed out AGAINST MEDICAL ADVICE. He understands the risks of PE/AK/. He is advised to follow-up with his primary care physician. Advised return to ED for worsening complaints. Disposition: Left AGAINST MEDICAL ADVICE Impression: Chest wall pain This note was generated with Mambu dictation software. It may contain incorrect words, spelling, and punctuation that were not noted in review of the chart prior to signing ED Disposition - Plan for ED Patient: Instructions: ED Strain Chest Wall Prescriptions: Naproxen [Naprosyn] 500 mg PO BID PRN #20 tab Prescription Printed Referrals: Valerie Heard MD [Primary Care Provider] -
[2020-01-12 16:41] LABS: Absolute Lymphocyte Count 1.62 X10^3/uL (0.83-4.51); Basophil# 0.03 X10^3/uL; Basophil% 0.6 % (0-1); Eosinophil# 0.16 X10^3/uL; Eosinophils% 3.1 % (0-5); Hematocrit 43.6 % (40-54); Hemoglobin 14.7 g/dL (13.0-16.5); Lymphocyte # 1.62 X10^3/ul (4.0); Mean Corp Hgb Conc 33.7 g/dL (32-36); Mean Corpuscular Hgb 30.8 pg (27.0-32.0); Mean Corpuscular Volume 91.2 fL (80-94); Monocyte# 0.46 X10^3/uL; Monocyte% 8.8 % (0-10); NRBC Flagged by Analyzer 0 % (0-5); Neutrophil # 2.95 X10^3/uL (2.7-7.7); Neutrophil % 56.3 % (47-70); Platelet Count 220 K/mm3 (150-450); RBC Distribution Width CV 11.3 % (11.6-14.6); RBC Distribution Width SD 37.6 fl (35.1-43.9); Red Blood Count 4.78 M/mm3 (4.6-6.2); White Blood Count 5.2 K/mm3 (4.4-11.0)
[2020-01-12] MEDS: Ketorolac 15 MG/ML Vial IV (16:46)
[2020-01-12 16:48] VITALS: O2SAT 97
[2020-01-12 16:56] LABS: Anion Gap 3 (5-15); BUN 8 mg/dL (7-18); BUN/Creat Ratio 8.8 RATIO (10-20); Calcium,Total 9.4 mg/dL (8.5-10.1); Chloride 106 mmol/L (98-107); Creatinine, Serum 0.91 mg/dL (0.70-1.30); EST Glomerular Filtration Rate 100 mL/min (>60); Est Glom Filt Rate - Afr Amer 121 mL/min (>60); Estimated Creatinine Clearance 124.13 ml/min; Glucose 87 mg/dL (74-106); Potassium 3.9 mmol/L (3.5-5.1); Sodium Level 141 mmol/L (136-145)
[2020-01-12 17:11] LABS: D-Dimer Quantitative (DVT/PE) 0.73 FEU/ug/m (0.27-0.49)
--- NOTE | 2020-01-12 17:14 | CT_ITS ---
STUDY: CTA CHEST REASON FOR EXAM: Male, 34 years old. ELEVATED D-DIMER, SOB X 1 WEEK RADIATION DOSAGE (If Supplied By Facility): CTDIvol = ( 13.09 ) mGy, DLP = ( 1011.73 ) mGycm TECHNIQUE: The examination was performed with the intravenous administration of IV 100mL Isovue-370. Post-processing of the angiographic images was performed, with multiplanar reformation and 3D reconstruction. Individualized dose optimization techniques were used for this CT. COMPARISON: None. FINDINGS: There is less than optimal opacification of the pulmonary arteries in part due to suboptimal bolus timing technique and linear filling defects within the vessels in the lower lobes due to motion artifact.. Normal thoracic aorta and visualized great vessels. There is no demonstrated aortic dissection. Normal heart and pericardium. Normal mediastinum. Normal hilar regions. Normal visualized trachea and bronchi. The lungs are well expanded. There is minor atelectasis within the dependent portion lungs. No focal infiltration is observed. Tiny calcified granuloma in the right lower lobe. There is minor scarring in the pulmonary apices Normal pleura. Normal chest wall structures. Normal osseous structures. Normal visualized upper abdomen. CT/CTA Chest W/WO Contrast IMPRESSION: Suboptimal study due to pulmonary arteries due to less than optimal bolus technique and motion artifact making it difficult to exclude pulmonary emboli. However if strong clinical suspicion would recommend DOPPLER study of the deep venous system of lower extremities and ventilation/perfusion scan for further evaluation if clinically warranted. Tiny calcified granulomata in right lower lobe Electronically Signed: Capo Gandara MD at 18:16 EDT , Service support ,
[2020-01-12 17:45] VITALS: BP 127/76; PULSE 67; RESP 18; O2SAT 100
[2020-01-12 18:14] VITALS: BP 121/85; PULSE 66; RESP 13; O2SAT 99
--- NOTE | 2020-01-12 19:27 | ED.DEP ---
ED Disposition - Plan for ED Patient: Instructions: ED Strain Chest Wall Prescriptions: Naproxen [Naprosyn] 500 mg PO BID PRN #20 tab Prescription Printed Referrals: Valerie Heard MD [Primary Care Provider] -
[2020-01-12 19:39] VITALS: BP 132/68; PULSE 74; RESP 17; O2SAT 99
== END 2020-01-12 19:40 | disposition left against medical advice (07) ==
LOC: ED 16:31
PROVIDERS: Emergency Provider Emergency Medicine; PCP Internal Medicine
DX: R07.89 Other chest pain (principal); F17.200 Nicotine dependence, unspecified, uncomplicated
CPT/HCPCS: 71101; 71275; 80048; 84484; 85025; 85379; 93005; 96374; 99284; Q9967; A4216

== ENCOUNTER → 2020-02-03 17:19 | Outpatient (CLI) | payer MEDICAID, SELFPAY | PROVIDERS: PCP Internal Medicine; Referring Provider Nurse Practitioner Family; Visit Provider Nurse Practitioner Family | DX: R05 Cough (principal) | CPT/HCPCS: 87635; C9803; U0003 ==

== ENCOUNTER 2020-06-26 05:42 | Emergency (ER) | payer MEDICAID, SELFPAY ==
[2020-06-26 05:43] VITALS: BP 137/79; PULSE 83; RESP 18; TEMP 37.2; O2SAT 96; BMI 22.1
--- NOTE | 2020-06-26 05:47 | ED.VIS.GEN ---
History of Present Illness Chief Complaint: Lower Extremity Injury Informant: Patient Onset: Weeks Context: Gradual Onset Timing: Intermittent Current Severity: Moderate Maximum Severity: Moderate Narrative: Patient is a 35-year-old male medical history significant for hepatitis B and C, IV drug abuse, who presents to the emergency department with right garcia pain. Patient was apparently doing methamphetamines tonight. He was found by police. They were going to take him into custody, but he was complaining about his leg. He was brought here by EMS. Patient states that he has had redness in his leg intermittently for the past few weeks. He states he has been scratching and picking at it. He denies any fevers or chills. Prior similar symptoms: Yes Recent Illness/Hospitalization: No Past Medical History - Allergies and Home Meds Allergies/Adverse Reactions: Allergies No Known Allergies Allergy (Verified 01/18/20 15:46) Primary Care Physician: NOT,DEFINED [Primary Care Provider] - Prior records reviewed: Yes Past Medical History: - - Hepatitis B, C, IV drug abuse Surgical History: no surgical history Smoking Status: Current every day smoker - Family History Maternal Family History: Family History (Last Reviewed 01/18/20 @ 15:49 by Krystal Camilo) Mother Sleep apnea Depression Father Prostate cancer Grandfather Prostate cancer Family History: Reports: - - Patient denies any maternal medical history. Paternal Family History: Family History (Last Reviewed 01/18/20 @ 15:49 by Krystal Camilo) Mother Sleep apnea Depression Father Prostate cancer Grandfather Prostate cancer Family History: Reports: Cancer - Prostate Review of Systems General: Denies: Chills, Fever, Sweats Eyes: Denies: Visual changes - bilaterally, Diplopia ENT: Denies: Rhinorrhea, Sore throat Cardiovascular: Denies: Chest pain, Palpitations Respiratory: Denies: Dyspnea, Cough, Dyspnea on exertion Gastrointestinal: Denies: Abdominal pain, Nausea, Vomiting, Diarrhea, Melena, Hematochezia Genitourinary: Denies: Dysuria, Hematuria, Frequency Musculoskeletal: Denies: Back pain, Extremity Pain Skin: Denies: Rash, Wounds Neurological: Denies: Headache, Weakness, Numbness Physical Exam Vital Signs/Narrative: Vital Signs Temp Pulse Resp BP Pulse Ox 06/26/20 05:43 98.9 F 83 18 137/79 H 96 Inital Vital Signs reviewed: Yes General: Well nourished, Unkempt Head: Normocephalic, Atraumatic Eyes: Perrl, EOMI ENT: Moist mucous membranes, No rhinorrhea Neck: Supple, Nontender Cardiovascular: Regular rate, Regular rhythm, No murmurs Respiratory: No distress, CTA bilaterally, Chest nontender Abdomen: Soft, Nontender, Nondistended, Normal bowel sounds Back: Nontender, Normal Inspection Extremities: No edema, Tenderness - Patient is 6 cm area ovoid cellulitis to the anterior garcia. There is no crepitus or abscess. His pulses are normal. Skin: Normal color, No rash Neurological: Alert, Oriented x3, Cranial nerves II-XII grossly intact, Normal Strength, Normal Sensation Psychological: Normal affect, Normal Mood Diagnostic/Tx/Re-eval - Medical Decision Making Patient has history of IV drug abuse. He presents with a localized area of cellulitis. There is no lymphangitic streak. His pulses are normal. There is no crepitus. He does have some skin picking in the area. I do feel this is likely the nidus of infection. We placed on Bactrim and Keflex. He will be discharged home. Impression 1. Right garcia cellulitis 2. History of IV drug abuse ED Disposition - Plan for ED Patient: Instructions: ED Cellulitis Prescriptions: Cephalexin [Keflex] 500 mg PO Q6 #40 capsule Prescription Printed Referrals: NOT,DEFINED [Primary Care Provider] -
[2020-06-26 06:03] VITALS: PULSE 83; RESP 20; O2SAT 100
== END 2020-06-26 06:03 | disposition home or self-care (01) ==
LOC: ED 06:00
PROVIDERS: Emergency Provider Emergency Medicine
DX: L03.115 Cellulitis of right lower limb (principal); F17.200 Nicotine dependence, unspecified, uncomplicated
CPT/HCPCS: 99284

== ENCOUNTER 2020-06-27 16:48 | Inpatient (IN) | payer MEDICAID, SELFPAY ==
[2020-06-26 05:43] VITALS: BMI 22.1
[2020-06-27 16:49] VITALS: BP 135/87; PULSE 99; RESP 20; TEMP 36.9; O2SAT 92; BMI 22.0
[2020-06-27] MEDS: Ondansetron 4 MG/2 ML Vial IV (17:18)
[2020-06-27 17:19] VITALS: BP 103/57; PULSE 95; RESP 16; O2SAT 98
[2020-06-27 17:57] VITALS: BP 112/69; PULSE 100; RESP 18; TEMP 36.6; O2SAT 96
--- NOTE | 2020-06-27 17:59 | ED.VISSUMM ---
- ER Visit Summary Date of Service: 06/27/20 Chief Complaint: Heroin overdose History of Present Illness: The patient is a 35 M presenting after heroin overdose. Patient was found in a parked car unresponsive. He was given Narcan intranasally and IV and awoke following Narcan. He admits to snorting either heroin or fentanyl today. He was seen in the ED yesterday for right lower extremity redness and cellulitis. He did not take the antibiotics that were prescribed but the redness has resolved. He has nausea with no vomiting. He denies other complaints. He admits to heroin, fentanyl, and methamphetamine use. He denies alcohol use. Physical Examination: Vitals are stable. Patient is afebrile. Alert no acute distress. HEENT exam is unremarkable. Neck is supple. Lungs are clear and equal bilaterally. Heart is regular rate and rhythm. Abdomen is soft nontender nondistended. Extremities are unremarkable. No erythema or warmth. Skin is warm and dry. No focal neurologic deficit. Remainder of exam is unremarkable. Emergency Department Course and Treatment: Patient was given Zofran IV. Labs are pending. He is requesting admission for detox. Discussed with Dr. Zhang for admission. Disposition: Admission Impression: Heroin overdose, polysubstance abuse This note was generated with Walk[employer] dictation software. It may contain incorrect words, spelling, and punctuation that were not noted in review of the chart prior to signing ED Disposition - Plan for ED Patient: Referrals: Care Physician,No Primary [Primary Care Provider] -
--- NOTE | 2020-06-27 18:10 | CM.ED ---
SOCIAL WORK Reason for Consult: Substance Abuse-requesting detox Patient presents to ER for overdose. Patient requesting detox from heroin and has completed [facility] agreement with nursing. Patient reports last use was today when he snorted either heroin or fentanyl. Patient reports use of heroin, fentanyl and meth. Call to [facility] Treatment Navigator, Cary to update on patient's admission to [facility]. Cary reports is familiar with patient and will update Sarai. Anticipate Sarai to be in tomorrow to complete assessment. Plan: Admit to [facility] Baron Davis, WELLNESS SPA MANAGER, PEDIATRIC SPEECH LANGUAGE PATHOLOGIST
[2020-06-27 18:12] LABS: ALB/GLOB Ratio 0.8 RATIO (0.9-2.4); AST(SGOT) 149 U/L (15-37); Alanine Aminotransfer ALT/SGPT 163 U/L (16-61); Albumin, Serum 3.6 g/dL (3.2-5.0); Alkaline Phosphatase 109 U/L (45-117); Anion Gap 6 (5-15); BUN 14 mg/dL (7-18); BUN/Creat Ratio 13.7 RATIO (10-20); Calcium,Total 8.9 mg/dL (8.5-10.1); Chloride 104 mmol/L (98-107); Creatinine, Serum 1.02 mg/dL (0.70-1.30); EST Glomerular Filtration Rate 87 mL/min (>60); Est Glom Filt Rate - Afr Amer 106 mL/min (>60); Globulin 4.8 g/dL (2.2-4.2); Glucose 195 mg/dL (74-106); Potassium 4.8 mmol/L (3.5-5.1); Protein, Total 8.4 g/dL (6.4-8.2); Sodium Level 135 mmol/L (136-145)
--- NOTE | 2020-06-27 18:14 | PCM.HP.STD ---
<Jennifer Talbert - Last Filed: 06/27/20 18:14> Problem List (1) Desire for detoxification Status: Acute (2) Polysubstance dependence Status: Acute (3) Hepatitis C Status: Chronic (4) Anxiety Status: Chronic History of Present Illness Date of Admission: 06/27/20 Chief Complaint: Detoxification from heroin following overdose The patient is a 35 year old M presents today following a heroin overdose. Patient reportedly was found in a car unresponsive and was given Narcan intranasally and IV and subsequently awoke. He reports use of opioids today, unsure whether he used heroin or fentanyl. Patient reports use of heroin fentanyl and methamphetamines. Complains of nausea in ER for which Zofran was given effective. Patient also complains of numbness and tingling to his hands and feet which he reports has been going on for some time. Patient states he does take his trazodone to help him sleep and it is effective but he does not take his BuSpar as he feels it does not help any with his anxiety. Past Medical History Past Medical History (Chronic Problems): Chronic Problems (Last Reviewed 06/27/20 @ 18:16 by Jennifer Talbert NP-C) Bipolar disorder (Chronic) History of suicide attempt (Chronic) Hepatitis C (Chronic) Anxiety (Chronic) Hepatitis C (Chronic) Tobacco dependence (Chronic) Polysubstance (including opioids) dependence with physiological dependence (Chronic) Methamphetamine dependence (Chronic) Medical History: Medical History (Last Reviewed 06/27/20 @ 18:16 by Jennifer Talbert NP-C) Hepatitis C (Chronic) B19.20 Anxiety (Chronic) F41.9 Polysubstance dependence (Acute) F19.20 Allergies No Known Allergies Allergy (Verified 06/27/20 16:49) Home Medications: Ambulatory Orders Medication Instructions Recorded buspirone 10 mg tablet 10 mg PO BID #180 tab 12/01/19 trazodone 50 mg tablet 50 mg PO QHS #90 tab 12/01/19 Surgical History: Surgical History (Last Reviewed 06/27/20 @ 18:16 by Jennifer Talbert NP-C) No history of previous surgery Surgical History: no surgical history Psychiatric History: Anxiety Smoking Status: Current every day smoker Tobacco Use: Cigarettes Drugs: Heroin, - - Methamphetamines and fentanyl - *Family History Maternal Family History: Family History (Last Reviewed 06/27/20 @ 18:17 by AMARI Jones) Mother Sleep apnea Depression Father Prostate cancer Grandfather Prostate cancer History Items: - - Patient denies any maternal medical history. Paternal Family History: Family History (Last Reviewed 06/27/20 @ 18:17 by JOSE JonesC) Mother Sleep apnea Depression Father Prostate cancer Grandfather Prostate cancer History Items: Cancer - Prostate Review of Systems Constitutional: Denies: Chills, Fever, Weight Change HEENT: Denies: Head Aches, Sinus Congestion, Sinus Drainage Cardiovascular: Denies: Chest Pain, Palpitations Respiratory: Denies: Cough, Shortness of breath at rest, Sputum production Gastrointestinal: Reports: Nausea. Denies: Abdominal Pain, Vomiting Genitourinary: Denies: Dysuria Musculoskeletal: Denies: Joint Pain, Joint Tenderness Skin: Denies: Rash, Wounds Neurological: Reports: Numbness - Bilateral hands and feet, Tingling - Bilateral hands and feet. Denies: Focal weakness Psychiatric: Reports: Anxiety. Denies: Depression, Homicidal Ideations, Suicidal Ideations Hematologic/ Lymphatic: Denies: Easy Bruising, Easy Bleeding VTE Information - Inpt Only VTE Present on Admission: No VTE Mechan Device Prophylaxis: SCD's VTE Pharm Prophylaxis ordered?: No Patient Problems: Active and Suspected Problems (Last Reviewed 06/27/20 @ 18:16 by Jennifer Talbert NP-C) Polysubstance dependence (Acute) Desire for detoxification (Acute) - Physical Exam Vitals/I&O's: Vital Signs Temp Pulse Resp BP Pulse Ox 98.4 F 95 16 103/57 L 98 06/27/20 16:49 06/27/20 17:19 06/27/20 17:19 06/27/20 17:19 06/27/20 17:19 Oxygen Delivery Method Room Air Weight: 176 lb 5.917 oz Body Mass Index (BMI) 22.0 General: Alert, Oriented x3, Cooperative HEENT: Atraumatic, PERRLA, EOMI, Normocephalic Neck: Supple, No JVD, Negative Carotid Bruits Lungs: Clear to auscultation, Normal air movement Cardiovascular: Regular rate, Regular Rhythm, Normal S1, Normal S2, No murmurs Abdomen: Bowel Sounds Present, Soft, Non Tender Extremities: No edema, Capillary Refill Less than 3 Seconds, Peripheral Pulses Normal Skin: No rashes, Ulcer/ Wound - Multiple scabbed areas to face in various stages of healing Musculoskeletal: No Tenderness to Palpation of Joints or Extremities Neurological: Cranial nerves II-XII grossly intact Psych/Mental Status: Appropriate, Anxious Laboratory Results 06/27/20 17:10: Sodium 135 L, Potassium 4.8, Chloride 104, Carbon Dioxide 25.0, Anion Gap 6, BUN 14, Creatinine 1.02, Estim Creat Clear Calc 112.20, Est GFR (MDRD) Af Amer 106, Est GFR (MDRD) Non-Af 87, BUN/Creatinine Ratio 13.7, Glucose 195 H, Calcium 8.9, Total Bilirubin 0.60, AST 149 H, ALT 163 H, Alkaline Phosphatase 109, Total Protein 8.4 H, Albumin 3.6, Globulin 4.8 H, Albumin/Globulin Ratio 0.8 L 06/27/20 17:10: Ethyl Alcohol Pending Assessment/Plan All Active Problems (Last Reviewed 06/27/20 @ 18:16 by JOSE JonesC) Myositis (Acute) Polysubstance dependence (Acute) Desire for detoxification (Acute) Withdrawal from opioids (Acute) 1. Desire for detoxification -Will admit to MedSurg -Will initiate buprenorphine taper protocol -Supportive medications for symptom management also ordered per protocol 2. Polysubstance abuse -See above. 3. Hepatitis C -Chronic, liver panel pending. -Patient has not underwent treatment for hepatitis C due to long-term drug use. 4. Anxiety -We will continue trazodone nightly. 5. Nicotine dependence -Patient denies need for nicotine patch at this time -Smoking cessation consult ordered. DVT prophylaxis-not ordered, low risk This patient was seen by AMARI Jones under the supervision of Dr. Zhang. <Mason Zhang - Last Filed: 06/27/20 18:39> Problem List (1) Bipolar disorder Status: Chronic (2) History of suicide attempt Status: Chronic History of Present Illness The patient is a 35 year old M with history of chronic opioid and methamphetamine use and dependence with recurrent admission in [facility], last 1 in September 2019 for right anterior medial elbow cellulitis secondary to IV drug abuse which was treated with IV antibiotics and then oral Bactrim and Keflex. This time, patient was found unresponsive in a car and was given Narcan intranasally and IV and woke up. Patient stated he snorted heroin for the first time as he was using IV in the past. He does not remember exactly but thinks probably he passed out for few minutes although exact duration of unconsciousness unclear. Patient has history of abscess in both forearms secondary to IV drug use but did not require artery or vein graft. Patient has history of bipolar disorder and suicidal attempt few years ago drug overdose. Currently complaining of diffuse body aches, restlessness but denies hallucination, seizures like movement or delusion. [] Past Medical History Medical History: Medical History (Last Reviewed 06/27/20 @ 18:16 by Jennifer Talbert NP-C) Hepatitis C (Chronic) B19.20 Anxiety (Chronic) F41.9 Polysubstance dependence (Acute) F19.20 Allergies No Known Allergies Allergy (Verified 06/27/20 16:49) Surgical History: Surgical History (Last Reviewed 06/27/20 @ 18:16 by Jennifer Talbert NP-C) No history of previous surgery - *Family History Maternal Family History: Family History (Last Reviewed 06/27/20 @ 18:17 by Jennifer Talbert NP-C) Mother Sleep apnea Depression Father Prostate cancer Grandfather Prostate cancer Paternal Family History: Family History (Last Reviewed 06/27/20 @ 18:17 by Jennifer Talbert NP-C) Mother Sleep apnea Depression Father Prostate cancer Grandfather Prostate cancer Objective: General: Alert, Oriented x3, Cooperative HEENT: Atraumatic, PERRLA, EOMI, Normocephalic Oral: No Gingival or Mucosal Lesions/ Ulcerations Neck: Supple, No JVD, Negative Carotid Bruits Lungs: Air entry equal in bilateral lung bases. No crepitation/rhonchi Cardiovascular: Regular rate, Regular Rhythm, Normal S1, Normal S2, No murmurs Abdomen: Bowel Sounds Present, Soft, Non Tender, Non-Distended : No renal angle tenderness. No suprapubic tenderness. Extremities: Middle of the scar keshia over bilateral cubital fossa. No edema, Capillary Refill Less than 3 Seconds Skin: No rashes, No breakdown Musculoskeletal: No Tenderness to Palpation of Joints or Extremities Neurological: Cranial nerves II-XII grossly intact, Deep Tendon Reflexes 2+/4 and Symmetrical, Neuro grossly intact Psych/Mental Status: Anxious and restless. - Physical Exam Vitals/I&O's: Vital Signs Temp Pulse Resp BP Pulse Ox 98.4 F 95 16 103/57 L 98 06/27/20 16:49 06/27/20 17:19 06/27/20 17:19 06/27/20 17:19 06/27/20 17:19 Oxygen Delivery Method Room Air Weight: 176 lb 5.917 oz Body Mass Index (BMI) 22.0 Laboratory Results 06/27/20 17:10: Sodium 135 L, Potassium 4.8, Chloride 104, Carbon Dioxide 25.0, Anion Gap 6, BUN 14, Creatinine 1.02, Estim Creat Clear Calc 112.20, Est GFR (MDRD) Af Amer 106, Est GFR (MDRD) Non-Af 87, BUN/Creatinine Ratio 13.7, Glucose 195 H, Calcium 8.9, Total Bilirubin 0.60, AST 149 H, ALT 163 H, Alkaline Phosphatase 109, Total Protein 8.4 H, Albumin 3.6, Globulin 4.8 H, Albumin/Globulin Ratio 0.8 L 06/27/20 17:10: Ethyl Alcohol < 3.0 Current Medications Sodium Chloride (0.9% Saline Lock 10 Ml Syringe) 10 - 40 ml IV UD PRN PRN Reason: SALINE FLUSH Assessment/Plan This patient was seen in conjunction with ROSE Rodriguez. I have independently interviewed and examined the patient and reviewed pertinent history, examination findings, laboratory and plan of management. I have reviewed the note and agree with the documented findings with the few additional points. In brief, patient is admitted after he was found unresponsive and unconscious due to heroine overdose/snorting. Currently has mild withdrawal symptoms. Patient being admitted on MedSur floor on buprenorphine based other supportive medications for medical stabilization. Patient has history of chronic heroin use and dependence and tolerance, methamphetamine use and dependence, cigarette smoking half pack per day. In the past he was using marijuana/opiates. Denies the use of ecstasy or other illicit in origin. History of chronic hepatitis B and C. Liver chemistry shows elevated ALT and AST but similarly elevated 2020. Total bili normal. Glucose 195 although previous glucose was normal. Other labs and urine tox pending. Serum alcohol less than 3. VTE prophylaxis: Low risk. Early ambulation encouraged. No prophylaxis indicated. I have discussed my assessment with ROSE Rodriguez and orders have been reviewed. CODE STATUS: We will keep full code. Inpatient E&M: 99146 Init Hosp L3
[2020-06-27 18:21] LABS: Alcohol, Blood (Medical)-Serum < 3.0 mg/dL
[2020-06-27 18:43] VITALS: BMI 22.0
[2020-06-27 19:12] LABS: Absolute Lymphocyte Count 1.09 X10^3/uL (0.83-4.51); Absolute Neutrophil Count 4.7 X10^3/uL (2.0-7.7); Basophil# 0.03 X10^3/uL; Basophil% 0.5 % (0-1); Eosinophil# 0.18 X10^3/uL; Eosinophils% 2.8 % (0-5); Hematocrit 42.2 % (40-54); Hemoglobin 14.1 g/dL (13.0-16.5); Lymphocyte # 1.09 X10^3/ul (4.0); Mean Corp Hgb Conc 33.4 g/dL (32-36); Mean Corpuscular Hgb 31.1 pg (27.0-32.0); Mean Corpuscular Volume 93.2 fL (80-94); Mean Platelet Vol. 10.7 fl (6.2-12.0); Monocyte# 0.38 X10^3/uL; Monocyte% 5.9 % (0-10); NRBC Flagged by Analyzer 0 % (0-5); Neutrophil # 4.71 X10^3/uL (2.7-7.7); Neutrophil % 73.6 % (47-70); Platelet Count 181 K/mm3 (150-450); RBC Distribution Width SD 41.1 fl (35.1-43.9); Red Blood Count 4.53 M/mm3 (4.6-6.2); White Blood Count 6.4 K/mm3 (4.4-11.0)
[2020-06-27 19:52] VITALS: BMI 20.6
[2020-06-27 19:55] VITALS: BP 107/40; PULSE 63; RESP 18; TEMP 36.8; O2SAT 98
[2020-06-27] MEDS: cloNIDine HCl 0.1 MG Tablet PO (20:20)
[2020-06-27] MEDS: Dicyclomine 10 MG Capsule 20 MG PO (20:20)
[2020-06-27] MEDS: Gabapentin 300 MG Capsule PO (20:20)
[2020-06-27] MEDS: Methocarbamol 750 MG Tablet 1500 MG PO (20:20)
[2020-06-27] MEDS: Buprenorphine HCl 2 MG TAB.SUBL SL (20:49)
[2020-06-28 00:27] VITALS: BP 101/59; PULSE 66; RESP 18; TEMP 37; O2SAT 99
[2020-06-28] MEDS: hydrOXYzine PAM 25 MG Capsule 50 MG PO ×3 (00:38→21:23)
[2020-06-28] MEDS: Ibuprofen 600 MG Tablet PO ×3 (00:38→21:23)
[2020-06-28 04:27] VITALS: BP 110/59; PULSE 59; RESP 18; TEMP 36.5; O2SAT 100
[2020-06-28] MEDS: Methocarbamol 750 MG Tablet 1500 MG PO ×2 (04:34→17:49)
[2020-06-28] MEDS: Gabapentin 300 MG Capsule PO ×2 (04:34→17:49)
[2020-06-28] MEDS: cloNIDine HCl 0.1 MG Tablet PO (04:34)
[2020-06-28] MEDS: Buprenorphine HCl 2 MG TAB.SUBL SL ×3 (04:34→21:23)
[2020-06-28 05:00] LABS: Amphetamine Urine VISTA POSITIVE (<1000 ng/mL); Barbiturate Urine VISTA NEGATIVE (< 200 ng/mL); Benzodiazepine Urine VISTA NEGATIVE (< 200 ng/mL); Cocaine Urine VISTA NEGATIVE (< 300 ng/mL); Ecstacy Urine VISTA NEGATIVE (< 500 ng/mL); Methadone Urine VISTA NEGATIVE (< 300 ng/mL); PCP Urine VISTA NEGATIVE (< 25 ng/mL); THC Urine VISTA NEGATIVE (< 50 ng/mL); Vista UDS pH Range 6
[2020-06-28 08:49] VITALS: BP 105/61; PULSE 96; RESP 16; TEMP 37; O2SAT 99
--- NOTE | 2020-06-28 10:04 | ADDICTION ---
This specifications writer attempted to meet with PT in his room. PT requested to rest today and agreed to meet with this specifications writer on 06/29 to complete assessments and treatment plan.
--- NOTE | 2020-06-28 11:01 | PCM.PN.HOSP ---
Patient Problems: Active and Suspected Problems (Last Reviewed 06/27/20 @ 18:16 by Jennifer Talbert, REFINERY OPERATOR [employer]-C) Polysubstance dependence (Acute) Desire for detoxification (Acute) Subjective: Patient seen and examined. Complains of tingling in his left hand and incidentally in the last 3 fingers. 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 He denies any palpitations, dizziness, any abdominal cramps, nausea or vomiting. Review of systems otherwise negative. Vitals/I&O's: Vital Signs Temp Pulse Resp BP Pulse Ox 98.6 F 96 16 105/61 99 06/28/20 08:49 06/28/20 08:49 06/28/20 08:49 06/28/20 08:49 06/28/20 08:49 Oxygen Delivery Method Room Air Weight: 164 lb 14.4 oz Body Mass Index (BMI) 20.6 Intake and Output for Last 24 Hours 06/26/20 06/27/20 06/28/20 23:59 23:59 23:59 Intake Total 1000 / 1000 Output Total 100 / 100 Balance 900 / 900 General: Alert, Oriented x3, Cooperative, No apparent distress HEENT: Atraumatic, PERRLA, EOMI, Normocephalic Oral: Dry Mucosa Neck: Supple, No JVD, Negative Carotid Bruits Lungs: Clear to auscultation, Normal air movement, No rhonchi, No wheeze, No rales Cardiovascular: Regular rate, Regular Rhythm, Normal S1, No murmurs Abdomen: Bowel Sounds Present, Soft, Non Tender, Non-Distended, No Hepato-splenomegaly Extremities: No clubbing, No cyanosis, No edema, Capillary Refill Less than 3 Seconds Skin: No rashes, No breakdown Musculoskeletal: - - mild tingling and numbness in the distribution of the median nerve in the left hand; Phalen's sign positive, Tinel's sign negative Lymphatic: No Cervical, Supraclavicular, or Inguinal Adenopathy Neurological: Cranial nerves II-XII grossly intact, Motor Exam 5/5 strength throughout, Facial Droop Psych/Mental Status: Normal Affect, Appropriate, Alert and oriented to time, place, person, mood and affect Laboratory Results 06/27/20 17:10: Sodium 135 L, Potassium 4.8, Chloride 104, Carbon Dioxide 25.0, Anion Gap 6, BUN 14, Creatinine 1.02, Estim Creat Clear Calc 112.20, Est GFR (MDRD) Af Amer 106, Est GFR (MDRD) Non-Af 87, BUN/Creatinine Ratio 13.7, Glucose 195 H, Calcium 8.9, Total Bilirubin 0.60, AST 149 H, ALT 163 H, Alkaline Phosphatase 109, Total Protein 8.4 H, Albumin 3.6, Globulin 4.8 H, Albumin/Globulin Ratio 0.8 L 06/27/20 17:10: Ethyl Alcohol < 3.0 06/27/20 17:10: WBC 6.4, RBC 4.53 L, Hgb 14.1, Hct 42.2, MCV 93.2, MCH 31.1, MCHC 33.4, RDW Std Deviation 41.1, RDW Coeff of Clement 12.0, Plt Count 181, MPV 10.7, Immature Gran % (Auto) 0.200, Neut % (Auto) 73.6 H, Lymph % (Auto) 17.0 L, [place] % (Auto) 5.9, Eos % (Auto) 2.8, Baso % (Auto) 0.5, Absolute Neuts (auto) 4.7, Absolute Lymphs (auto) 1.09, Nucleated RBC % 0 06/27/20 17:10: PT 13.0, INR 1.0 06/28/20 04:33: Urine Opiates Screen NEGATIVE, Urine Methadone Screen NEGATIVE, Ur Barbiturates Screen NEGATIVE, Ur Phencyclidine Scrn NEGATIVE, Ur Amphetamines Screen POSITIVE H, U Methamphetamin-MDMA NEGATIVE, U Benzodiazepines Scrn NEGATIVE, Urine Cocaine Screen NEGATIVE, U Cannabinoids Screen NEGATIVE, Ur Drug Screen Comment Current Medications Acetaminophen (Acetaminophen 500 Mg Tablet) 500 mg PO Q4H PRN PRN PRN Reason: Temp > 100.4 F Al Hydroxide/Mg Hydroxide (Mag Hydrox/Al Hydrox/Simeth 30 Ml Udc) 30 ml PO Q6H PRN PRN PRN Reason: dyspesia Bisacodyl (Bisacodyl 10 Mg Suppository) 10 mg RC DAILY PRN PRN Reason: Constipation Buprenorphine HCl (Buprenorphine Hcl 2 Mg Tab.Subl) 4 mg SL Q8H DI; Taper Stop: 06/30/20 20:29 Last Admin: 06/28/20 04:34 Dose: 4 mg Documented by: Clonidine (Clonidine Hcl 0.1 Mg Tablet) 0.1 mg PO Q8H PRN PRN PRN Reason: RESTLESSNESS Last Admin: 06/28/20 04:34 Dose: 0.1 mg Documented by: Dicyclomine HCl (Dicyclomine 10 Mg Capsule) 20 mg PO Q6H PRN PRN PRN Reason: Abdominal Discomfort Last Admin: 06/27/20 20:20 Dose: 20 mg Documented by: Gabapentin (Gabapentin 300 Mg Capsule) 300 mg PO Q8H PRN PRN PRN Reason: moderate to severe anxiety Last Admin: 06/28/20 04:34 Dose: 300 mg Documented by: Hydroxyzine Pamoate (Hydroxyzine Jumana 25 Mg Capsule) 50 mg PO Q6H PRN PRN PRN Reason: mild anxiety Last Admin: 06/28/20 08:45 Dose: 50 mg Documented by: Ibuprofen (Ibuprofen 600 Mg Tablet) 600 mg PO Q8H PRN PRN PRN Reason: PAIN -01/14 Last Admin: 06/28/20 08:45 Dose: 600 mg Documented by: Loperamide HCl (Loperamide 2 Mg Capsule) 2 mg PO Q4H PRN PRN PRN Reason: LOOSE STOOLS Methocarbamol (Methocarbamol 750 Mg Tablet) 1,500 mg PO Q6H PRN PRN PRN Reason: MUSCLE SPASM Last Admin: 06/28/20 04:34 Dose: 1,500 mg Documented by: Nicotine (Nicotine 21 Mg Patch) 21 mg TD DAILY COUNT INCLUDES THE [facility] Last Admin: 06/28/20 08:45 Dose: Not Given Documented by: Nutritional Formula (Lactose Free) (Ensure Enlive 120 Ml Liquid) 120 ml PO 4X/DAY COUNT INCLUDES THE [facility] Last Admin: 06/28/20 08:45 Dose: 120 ml Documented by: Ondansetron HCl (Ondansetron 8 Mg Tablet) 8 mg PO Q8H PRN PRN PRN Reason: NAUSEA Senna (Senna Tablet) 2 tablet PO QHS PRN PRN Reason: Constipation Trazodone HCl (Trazodone 100 Mg Tablet) 100 mg PO QHS PRN PRN PRN Reason: INSOMNIA STROKE Vital Signs/Narrative: Vital Signs Temp Pulse Resp BP Pulse Ox 06/28/20 08:49 98.6 F 96 16 105/61 99 Medical Necessity - Tobacco Use Smoking Status: Current every day smoker Tobacco Use: Cigarettes Assessment/Plan All Active Problems (Last Reviewed 06/27/20 @ 18:16 by Jennifer Talbert, ROSE-C) Myositis (Acute) Polysubstance dependence (Acute) Desire for detoxification (Acute) Withdrawal from opioids (Acute) #Acute opioid withdrawal on buprenorphine withdrawal protocol monitor CINA score #Probable Carpal tunnel's syndrome of LUE consult PT/OT. He may need a hand brace. #Hepatitis C: treatment naive. Does have elevated liver enzymes of with AST of 149 and ALT of 163. Total bilirubin is 0.60 and ALP is 109. to follow u with GI on outpatient basis #Anxiety: on trazodone. #Nicotine dependence: counseled to quit. refused nicotine patch DVT prophylaxis: low risk. encourage ambulation Inpatient E&M: 23962 Subs Hosp L2
[2020-06-28 16:08] VITALS: BP 119/62; PULSE 64; RESP 16; TEMP 36.4; O2SAT 100
[2020-06-28 21:08] VITALS: BP 110/57; PULSE 86; RESP 16; TEMP 39.2; O2SAT 96
[2020-06-28] MEDS: Dicyclomine 10 MG Capsule 20 MG PO (21:22)
[2020-06-28] MEDS: Acetaminophen 500 MG Tablet PO (21:23)
[2020-06-28 23:09] VITALS: TEMP 38.2
--- NOTE | 2020-06-28 23:38 | RAD_ITS ---
STUDY: X-RAY CHEST REASON FOR EXAM: Male, 35 years old. Fever TECHNIQUE: Single AP portable view of the chest. COMPARISON: January 12, 2020 chest x-ray FINDINGS: The lungs are clear and expanded. There is no demonstrated pleural abnormality. Normal size heart. Normal mediastinum and john. Normal visualized pulmonary arteries. Normal visualized aortic arch and descending thoracic aorta. Normal visualized thoracic spine. Normal visualized ribs, clavicles, and shoulders. There is no demonstrated abnormality of the visualized soft tissue structures of the upper abdomen. RAD/Chest 1 View (Portable) IMPRESSION: Normal x-ray examination of the chest. Electronically Signed: Sandra Sullivan MD at 1:14 EDT Tel , Service support ,
--- NOTE | 2020-06-28 23:39 | PCM.HOSP.N ---
Hospitalist Note Patient with onset high fever, improved with tylenol and motrin but notably elevated. Vague complaints. Will obtain rapid COVID antigen, blood culture given recent IVDA, re-assessing for abscess potential, will obtain UA and portable CXR.
--- NOTE | 2020-06-28 23:58 | NURSING ---
contacted physician on Patients fever of 100.8 F down from 102.6 F after medication intervention. Physician ordered blood gasses, rapid covid, chest xray and urines. I also reexamined patient for any notable skin abscesses and assessed the patient for SOB. Pt had no abscesses and was not short of breath.
[2020-06-29 00:19] LABS: Bacteria 0 SEEN /hpf (None Seen); Mucous, Urine 0 SEEN /hpf (<or=2+); Red Blood Cells-Urine 0 SEEN /hpf (0-5); Squamous Epithelial Cells - UA 0 SEEN /hpf (0-5); White Blood Cells 0 SEEN /hpf (0-5)
[2020-06-29 00:20] LABS: Color, Urine Yellow (Yellow); Glucose, Dipstick Normal (Normal); Ketone-Dipstick Negative (Negative); Leukocyte Esterase-Dipstick Negative /ul (Negative); Nitrite-Dipstick Negative (Negative); Occult Blood-Urine Negative /ul (Negative); Protein-Dipstick Negative (Negative); Urine Bilirubin Dipstick Negative (Negative); Urine Clarity Clear (Clear); Urine Urobilinogen 1 mg/dl (Normal)
[2020-06-29 00:31] LABS: Amorphous Sediment 1+
[2020-06-29 02:51] VITALS: BP 102/46; PULSE 62; RESP 16; TEMP 37.3; O2SAT 97
[2020-06-29] MEDS: Methocarbamol 750 MG Tablet 1500 MG PO ×3 (02:59→20:22)
[2020-06-29] MEDS: cloNIDine HCl 0.1 MG Tablet PO ×2 (03:00→20:22)
[2020-06-29] MEDS: Buprenorphine HCl 2 MG TAB.SUBL SL ×3 (04:34→20:22)
[2020-06-29] MEDS: Dicyclomine 10 MG Capsule 20 MG PO ×2 (04:35→20:22)
[2020-06-29 09:00] VITALS: BP 99/54; PULSE 67; RESP 16; TEMP 36.9; O2SAT 98
--- NOTE | 2020-06-29 09:25 | ADDICTION ---
PT refused to meet with this senior mortgage underwriter today stating that you guys have all my information. I'm tired. He refused d/c planning noting that he plans to f/u with [facility] for Residential treatment. PT was informed that this senior mortgage underwriter can assist with admit to Residential treatment. PT declined coordination and stated again that he is unwilling to meet today.
[2020-06-29] MEDS: Gabapentin 300 MG Capsule PO (09:55)
[2020-06-29] MEDS: Ondansetron 8 MG Tablet PO (09:55)
[2020-06-29] MEDS: Ibuprofen 600 MG Tablet PO (09:56)
--- NOTE | 2020-06-29 13:30 | RAD_ITS ---
STUDY: X-RAY - RIGHT HAND REASON FOR EXAM: Right finger pain, mostly in the middle finger, no specific injury. TECHNIQUE: 3 view(s) of the hand. COMPARISON: None. FINDINGS: Normal radiocarpal articulation. Normal distal radioulnar joint. Normal visualized carpal bones. Normal carpal articulations Normal carpometacarpal articulation of the thumb. Normal second through fifth carpometacarpal joints. There is chronic healed fracture deformity of the second metacarpal diaphysis. Normal metacarpophalangeal joint of the thumb. Normal interphalangeal joint of the thumb. Normal proximal and distal phalanges of the thumb. Normal metacarpophalangeal joints of the second through fifth fingers. Normal proximal and distal interphalangeal joints of the second through fifth fingers. Normal phalanges of the second through fifth fingers. The soft tissue structures are unremarkable. RAD/Hand Min 3 Views IMPRESSION: Chronic healed fracture deformity of the second metacarpal. Otherwise, unremarkable x-ray examination of the right hand. Electronically Signed: Dennis Barragan MD at 14:20 EDT Tel , Service support ,
--- NOTE | 2020-06-29 15:08 | PN_ITS ---
Patient Problems: Active and Suspected Problems (Last Reviewed 06/27/20 @ 18:16 by Jennifer Talbert, PROSTHETIC LAB TECHNICIAN-C) Polysubstance dependence (Acute) Desire for detoxification (Acute) Subjective: Patient seen and examined. He complains of right middle finger pain. He complains of abdominal cramps, and review of systems is otherwise negative. Vitals/I&O's: Vital Signs Temp Pulse Resp BP Pulse Ox 98.4 F 67 16 99/54 L 98 06/29/20 09:00 06/29/20 09:00 06/29/20 09:00 06/29/20 09:00 06/29/20 09:00 Oxygen Delivery Method Room Air Weight: 164 lb 14.492 oz Body Mass Index (BMI) 20.6 Intake and Output for Last 24 Hours 06/27/20 06/28/20 06/29/20 23:59 23:59 23:59 Intake Total 3200 / 3800 2300 / 2300 Output Total 100 / 300 500 / 500 Balance 3100 / 3500 1800 / 1800 General: Alert, Oriented x3, Cooperative, No apparent distress HEENT: Atraumatic, PERRLA, EOMI, Normocephalic Oral: Dry Mucosa Neck: Supple, No JVD, Negative Carotid Bruits Lungs: Clear to auscultation, Normal air movement, No rhonchi, No wheeze, No rales Cardiovascular: Regular rate, Regular Rhythm, Normal S1, No murmurs Abdomen: Bowel Sounds Present, Soft, Non Tender, Non-Distended, No Hepato- splenomegaly Extremities: No clubbing, No cyanosis, No edema, Capillary Refill Less than 3 Seconds Skin: No rashes, No breakdown Musculoskeletal: - - right middle finger tenderness over proximal metacarpal bone, no swelling or differential warmth Lymphatic: No Cervical, Supraclavicular, or Inguinal Adenopathy Neurological: Cranial nerves II-XII grossly intact, Motor Exam 5/5 strength throughout, Facial Droop Psych/Mental Status: Normal Affect, Appropriate, Alert and oriented to time, place, person, mood and affect Microbiology Past 72 Hours 06/28/20 23:50 Mucosa - Nasopharyngeal SARS-CoV-2 Antigen (Rapid) - Final Laboratory Results 06/28/20 23:50: Urine Color Yellow, Urine Clarity Clear, Urine pH 6.0, Ur Specific [place] 1.010, Urine Protein Negative, Urine Glucose (UA) Normal, Urine Ketones Negative, Urine Occult Blood Negative, Urine Nitrite Negative, Urine Bilirubin Negative, Urine Urobilinogen 1 H, Ur Leukocyte Esterase Negative, Urine RBC 0 SEEN, Urine WBC 0 SEEN, Ur Squamous Epith Cells 0 SEEN, Amorphous Sediment 1+, Urine Bacteria 0 SEEN, Urine Mucus 0 SEEN Current Medications Acetaminophen (Acetaminophen 500 Mg Tablet) 500 mg PO Q4H PRN PRN PRN Reason: Temp > 100.4 F Last Admin: 06/28/20 21:23 Dose: 500 mg Documented by: Al Hydroxide/Mg Hydroxide (Mag Hydrox/Al Hydrox/Simeth 30 Ml Udc) 30 ml PO Q6H PRN PRN PRN Reason: dyspesia Bisacodyl (Bisacodyl 10 Mg Suppository) 10 mg RC DAILY PRN PRN Reason: Constipation Buprenorphine HCl (Buprenorphine Hcl 2 Mg Tab.Subl) 2 mg SL Q8H DI; Taper Stop: 06/30/20 20:29 Last Admin: 06/29/20 12:49 Dose: 2 mg Documented by: Clonidine (Clonidine Hcl 0.1 Mg Tablet) 0.1 mg PO Q8H PRN PRN PRN Reason: RESTLESSNESS Last Admin: 06/29/20 03:00 Dose: 0.1 mg Documented by: Dicyclomine HCl (Dicyclomine 10 Mg Capsule) 20 mg PO Q6H PRN PRN PRN Reason: Abdominal Discomfort Last Admin: 06/29/20 04:35 Dose: 20 mg Documented by: Gabapentin (Gabapentin 300 Mg Capsule) 300 mg PO Q8H PRN PRN PRN Reason: moderate to severe anxiety Last Admin: 06/29/20 09:55 Dose: 300 mg Documented by: Hydroxyzine Pamoate (Hydroxyzine Jumana 25 Mg Capsule) 50 mg PO Q6H PRN PRN PRN Reason: mild anxiety Last Admin: 06/28/20 21:23 Dose: 50 mg Documented by: Ibuprofen (Ibuprofen 600 Mg Tablet) 600 mg PO Q8H PRN PRN PRN Reason: PAIN 1-10 Last Admin: 06/29/20 09:56 Dose: 600 mg Documented by: Loperamide HCl (Loperamide 2 Mg Capsule) 2 mg PO Q4H PRN PRN PRN Reason: LOOSE STOOLS Methocarbamol (Methocarbamol 750 Mg Tablet) 1,500 mg PO Q6H PRN PRN PRN Reason: MUSCLE SPASM Last Admin: 06/29/20 09:55 Dose: 1,500 mg Documented by: Nicotine (Nicotine 21 Mg Patch) 21 mg TD DAILY [facility] Last Admin: 06/29/20 11:54 Dose: Not Given Documented by: Nutritional Formula (Lactose Free) (Ensure Enlive 120 Ml Liquid) 120 ml PO 4X/DAY DI Last Admin: 06/29/20 09:51 Dose: 120 ml Documented by: Ondansetron HCl (Ondansetron 8 Mg Tablet) 8 mg PO Q8H PRN PRN PRN Reason: NAUSEA Last Admin: 06/29/20 09:55 Dose: 8 mg Documented by: Senna (Senna Tablet) 2 tablet PO QHS PRN PRN Reason: Constipation Trazodone HCl (Trazodone 100 Mg Tablet) 100 mg PO QHS PRN PRN PRN Reason: INSOMNIA Medical Necessity - Tobacco Use Smoking Status: Current every day smoker Tobacco Use: Cigarettes Assessment/Plan All Active Problems (Last Reviewed 06/27/20 @ 18:16 by Jennifer Talbert, PROSTHETIC LAB TECHNICIAN-C) Myositis (Acute) Polysubstance dependence (Acute) Desire for detoxification (Acute) Withdrawal from opioids (Acute) #Acute opioid withdrawal * on buprenorphine withdrawal protocol * monitor CINA score * #Probable Carpal tunnel's syndrome of LUE * consult PT/OT. * He may need a hand brace. #Right middle finger pain * chronic healed fracture deformity of the second metacarpal, otherwise unremark able. * #Hepatitis C: * treatment naive. * had elevated liver enzymes of with AST of 149 and ALT of 163. * Total bilirubin is 0.60 and ALP is 109. * to follow u with GI on outpatient basis * #Anxiety: on trazodone. #Nicotine dependence: counseled to quit. refused nicotine patch DVT prophylaxis: low risk. encourage ambulation Inpatient E&M: 8[address] [facility] Hosp L2
[2020-06-29 15:42] VITALS: BP 97/42; PULSE 55; RESP 16; TEMP 37.1; O2SAT 98
[2020-06-29 20:11] VITALS: BP 108/56; PULSE 66; RESP 17; TEMP 37.2; O2SAT 96
[2020-06-30 02:00] VITALS: BP 102/54; PULSE 62; RESP 15; TEMP 36.8; O2SAT 98
[2020-06-30] MEDS: Ibuprofen 600 MG Tablet PO (02:01)
[2020-06-30] MEDS: Gabapentin 300 MG Capsule PO (02:01)
[2020-06-30 09:35] VITALS: BP 120/71; PULSE 65; RESP 16; TEMP 36.6; O2SAT 98
[2020-06-30] MEDS: Buprenorphine HCl 2 MG TAB.SUBL SL (09:37)
--- NOTE | 2020-06-30 10:24 | CASEMGMT ---
Social Work Note Pt is RAMP pt but has refused to speak with Kevin. SW in to speak with pt regarding recent OD. SW introduced self and role at [facility]. Pt states everyone keeps coming in here and then pulled his bed covers over his face. SW asked pt about recent OD. Pt state his OD was NOT a suicide attempt. Pt denied the OD being a suicide attempt. Pt denied currently being suicidal. Pt states he plans on following up with Kevin at discharge. Shirley Head SAND MOLDER, LEGAL COUNSEL
--- NOTE | 2020-06-30 10:48 | PN_ITS ---
Patient Problems: Active and Suspected Problems (Last Reviewed 06/27/20 @ 18:16 by Jennifer Talbert, ASSISTANT PLANT CONTROL OPERATOR-C) Polysubstance dependence (Acute) Desire for detoxification (Acute) Subjective: Patient seen and examined. He is complaining of abdominal cramps and increased sweating. He still thinks he is going through withdrawal. Review of symptoms otherwise negative. Vitals/I&O's: Vital Signs Temp Pulse Resp BP Pulse Ox 97.9 F 65 16 120/71 98 06/30/20 09:35 06/30/20 09:35 06/30/20 09:35 06/30/20 09:35 06/30/20 09:35 Oxygen Delivery Method Room Air Weight: 164 lb 14.492 oz Body Mass Index (BMI) 20.6 Intake and Output for Last 24 Hours 06/28/20 06/29/20 06/30/20 23:59 23:59 23:59 Intake Total 3200 / 3800 3600 / 3600 400 / 400 Output Total 100 / 300 500 / 500 Balance 3100 / 3500 3100 / 3100 400 / 400 General: Alert, Oriented x3, Cooperative, No apparent distress HEENT: Atraumatic, PERRLA, EOMI, Normocephalic Oral: Dry Mucosa Neck: Supple, No JVD, Negative Carotid Bruits Lungs: Clear to auscultation, Normal air movement, No rhonchi, No wheeze, No rales Cardiovascular: Regular rate, Regular Rhythm, Normal S1, No murmurs Abdomen: Bowel Sounds Present, Soft, Non Tender, Non-Distended, No Hepato- splenomegaly Extremities: No clubbing, No cyanosis, No edema, Capillary Refill Less than 3 Seconds Skin: No rashes, No breakdown Musculoskeletal: - -no tenderness or swelling. Lymphatic: No Cervical, Supraclavicular, or Inguinal Adenopathy Neurological: Cranial nerves II-XII grossly intact, Motor Exam 5/5 strength throughout, Facial Droop Psych/Mental Status: Normal Affect, Appropriate, Alert and oriented to time, place, person, mood and affect Microbiology Past 72 Hours 06/28/20 23:50 Mucosa - Nasopharyngeal SARS-CoV-2 Antigen (Rapid) - Final Current Medications Acetaminophen (Acetaminophen 500 Mg Tablet) 500 mg PO Q4H PRN PRN PRN Reason: Temp > 100.4 F Last Admin: 06/28/20 21:23 Dose: 500 mg Documented by: Al Hydroxide/Mg Hydroxide (Mag Hydrox/Al Hydrox/Simeth 30 Ml Udc) 30 ml PO Q6H PRN PRN PRN Reason: dyspesia Bisacodyl (Bisacodyl 10 Mg Suppository) 10 mg RC DAILY PRN PRN Reason: Constipation Buprenorphine HCl (Buprenorphine Hcl 2 Mg Tab.Subl) 2 mg SL Q12H DI; Taper Stop: 06/30/20 20:29 Last Admin: 06/30/20 09:37 Dose: 2 mg Documented by: Clonidine (Clonidine Hcl 0.1 Mg Tablet) 0.1 mg PO Q8H PRN PRN PRN Reason: RESTLESSNESS Last Admin: 06/29/20 20:22 Dose: 0.1 mg Documented by: Dicyclomine HCl (Dicyclomine 10 Mg Capsule) 20 mg PO Q6H PRN PRN PRN Reason: Abdominal Discomfort Last Admin: 06/29/20 20:22 Dose: 20 mg Documented by: Gabapentin (Gabapentin 300 Mg Capsule) 300 mg PO Q8H PRN PRN PRN Reason: moderate to severe anxiety Last Admin: 06/30/20 02:01 Dose: 300 mg Documented by: Hydroxyzine Pamoate (Hydroxyzine Jumana 25 Mg Capsule) 50 mg PO Q6H PRN PRN PRN Reason: mild anxiety Last Admin: 06/28/20 21:23 Dose: 50 mg Documented by: Ibuprofen (Ibuprofen 600 Mg Tablet) 600 mg PO Q8H PRN PRN PRN Reason: PAIN 1-01/14 Last Admin: 06/30/20 02:01 Dose: 600 mg Documented by: Loperamide HCl (Loperamide 2 Mg Capsule) 2 mg PO Q4H PRN PRN PRN Reason: LOOSE STOOLS Methocarbamol (Methocarbamol 750 Mg Tablet) 1,500 mg PO Q6H PRN PRN PRN Reason: MUSCLE SPASM Last Admin: 06/29/20 20:22 Dose: 1,500 mg Documented by: Nicotine (Nicotine 21 Mg Patch) 21 mg TD DAILY [facility] Last Admin: 06/30/20 09:37 Dose: Not Given Documented by: Nutritional Formula (Lactose Free) (Ensure Enlive 120 Ml Liquid) 120 ml PO 4X/DAY [facility] Last Admin: 06/30/20 09:37 Dose: 120 ml Documented by: Ondansetron HCl (Ondansetron 8 Mg Tablet) 8 mg PO Q8H PRN PRN PRN Reason: NAUSEA Last Admin: 06/29/20 09:55 Dose: 8 mg Documented by: Senna (Senna Tablet) 2 tablet PO QHS PRN PRN Reason: Constipation Trazodone HCl (Trazodone 100 Mg Tablet) 100 mg PO QHS PRN PRN PRN Reason: INSOMNIA STROKE Vital Signs/Narrative: Vital Signs Temp Pulse Resp BP Pulse Ox 06/30/20 09:35 97.9 F 65 16 120/71 98 Medical Necessity - Tobacco Use Smoking Status: Current every day smoker Tobacco Use: Cigarettes Assessment/Plan All Active Problems (Last Reviewed 06/27/20 @ 18:16 by Jennifer Talbert NP-C) Myositis (Acute) Polysubstance dependence (Acute) Desire for detoxification (Acute) Withdrawal from opioids (Acute) #Acute opioid withdrawal * on buprenorphine withdrawal protocol * monitor CINA score * #Probable Carpal tunnel's syndrome of LUE * consult PT/OT. * He may need a hand brace. #Right middle finger pain * xray showed chronic healed fracture deformity of the second metacarpal, otherwise unremarkable. * #Hepatitis C: * treatment naive. * to follow up with GI on outpatient basis * #Anxiety: on trazodone. #Nicotine dependence: counseled to quit. refused nicotine patch DVT prophylaxis: low risk. encourage ambulation Disposition: patient wants to stay one more day since he is still getiing some abdominal cramps and sweating profusely. Inpatient E&M: 16285 Subs Hosp L2
--- NOTE | 2020-06-30 12:37 | PCM.DC ---
- Discharge Diagnoses Current Active Problems: Current Active and Chronic Problems (Last Reviewed 06/27/20 @ 18:16 by Jennifer Talbert, ROSE-C) Bipolar disorder (Chronic) History of suicide attempt (Chronic) Hepatitis C (Chronic) Anxiety (Chronic) Polysubstance dependence (Acute) Desire for detoxification (Acute) You will use the following diet at home:: No restrictions Your food should be the consistency of: Regular Your liquids should be the consistency of: Regular/Thin Discharge Activity: Return to Normal Activity Weight Bearing Status: Weight bearing as tolerated Instructions: ED Drug Abuse, ED Abuse Drug Narcotic Sedative Rx Allergies/Adverse Reactions: Allergies No Known Allergies Allergy (Verified 06/27/20 16:49) Medications to take at Discharge Buspirone HCl 10 mg PO BID 06/27/20 traZODone [Desyrel] 50 mg PO QHS 06/27/20 Primary Care Physician: Care Physician,No Primary [Primary Care Provider] - Test Results: Test results from this visit will be discussed in further detail at your follow-up appointment, if applicable. Please Follow Up With: [facility] When: 1-2 weeks to establish PCP care Proposed Discharge Date: 06/30/20
--- NOTE | 2020-06-30 12:39 | DS.PCM_ITS ---
Discharge Date and Diagnosis - Problem List Patient Problems: Active and Suspected Problems (Last Reviewed 06/27/20 @ 18:16 by AMARI Jones) Polysubstance dependence (Acute) Desire for detoxification (Acute) Date of Admission: 06/27/20 Date of Discharge: 06/30/20 - Primary Discharge Diagnosis Acute Problems: Active Problems (Last Reviewed 06/27/20 @ 18:16 by JOSE JonesC) Polysubstance dependence (Acute) Desire for detoxification (Acute) - Secondary Discharge Diagnosis Chronic Problems: Chronic Problems (Last Reviewed 06/27/20 @ 18:16 by JOSE JonesC) Bipolar disorder (Chronic) History of suicide attempt (Chronic) Hepatitis C (Chronic) Anxiety (Chronic) Hepatitis C (Chronic) Tobacco dependence (Chronic) 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 Electronically Signed: Sandra Sullivan MD at 1:14 EDT Tel , Service support , Hand X-Ray 06/29/20 13:30 IMPRESSION: Chronic healed fracture deformity of the second metacarpal. Otherwise, unremarkable x-ray examination of the right hand. Electronically Signed: Dennis Barragan MD at 14:20 EDT Tel , Service support , Operations: None Procedures: None Summary of Care Provided: The patient is a 35 year old M with a past medical history as outlined including history of polysubstance abuse who was admitted through the ED on 06/27/2020 after he was found in a car unresponsive. He was given Narcan nasally and IV and subsequently awoke. He admitted to using opioids that day but was not sure it was heroin or fentanyl. He admitted to a history of heroin, fentanyl and methamphetamine abuse. He also complained of nausea and numbness and tingling in his hands and feet which have been going on for some time. He was admitted and managed for acute overdose for opiates and acute opiate withdrawal. He was started on opiate withdrawal protocol with buprenorphine. Patient complained of some numbness in his hand, in the distribution of the ulnar nerve. 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 Physical therapy was consulted as he may have needed a hand brace. He also complained of right middle finger pain and x-ray done showed chronic healed fracture deformity of the second metacarpal bones otherwise unremarkable. Patient remained stable. On 06/30/2020, patient recently said he was having profuse sweating and so wanted to stay 1 more day as he thought he was still going through withdrawal. However later in the day, patient stated that he wanted to go home and felt much better. Patient was therefore discharged on 06/30/2020 and is follow-up with his primary care doctor and follow-up with outpatient rehab as scheduled. Patient seen and examined prior to discharge he had no complaints and felt much better. Review of systems otherwise negative. Labs and vitals reviewed. Home medication reviewed and reconciled. O/E: Vital Signs Temp Pulse Resp BP Pulse Ox 98.0 F 70 16 103/50 L 98 06/30/20 13:07 06/30/20 13:07 06/30/20 13:07 06/30/20 13:07 06/30/20 13:07 General: Alert, Oriented x3, Cooperative, No apparent distress HEENT: Atraumatic, PERRLA, EOMI, Normocephalic Oral: Dry Mucosa Neck: Supple, No JVD, Negative Carotid Bruits Lungs: Clear to auscultation, Normal air movement, No rhonchi, No wheeze, No rales Cardiovascular: Regular rate, Regular Rhythm, Normal S1, No murmurs Abdomen: Bowel Sounds Present, Soft, Non Tender, Non-Distended, No Hepato- splenomegaly Extremities: No clubbing, No cyanosis, No edema, Capillary Refill Less than 3 Seconds Skin: No rashes, No breakdown Musculoskeletal: - -no tenderness or swelling. Lymphatic: No Cervical, Supraclavicular, or Inguinal Adenopathy Neurological: Cranial nerves II-XII grossly intact, Motor Exam 5/5 strength throughout, Facial Droop Psych/Mental Status: Normal Affect, Appropriate, Alert and oriented to time, place, person, mood and affect Plan is for discharge today. He was referred to [facility] to establish PCP relationship. Patient Problems: Active and Suspected Problems (Last Reviewed 06/27/20 @ 18:16 by AMARI Jones) Polysubstance dependence (Acute) Desire for detoxification (Acute) - Physical Exam Vitals/I&O's: Vital Signs Temp Pulse Resp BP Pulse Ox 97.9 F 65 16 120/71 98 06/30/20 09:35 06/30/20 09:35 06/30/20 09:35 06/30/20 09:35 06/30/20 09:35 Oxygen Delivery Method Room Air Weight: 164 lb 14.492 oz Body Mass Index (BMI) 20.6 Intake and Output for Last 24 Hours 06/28/20 06/29/20 06/30/20 23:59 23:59 23:59 Intake Total 3200 / 3800 3600 / 3600 400 / 400 Output Total 100 / 300 500 / 500 Balance 3100 / 3500 3100 / 3100 400 / 400 Microbiology Past 72 Hours 06/28/20 23:50 Urine, Clean Catch Urine Culture - Preliminary Culture exhibits no growth. 06/28/20 23:50 Mucosa - Nasopharyngeal SARS-CoV-2 Antigen (Rapid) - Final Current Medications Acetaminophen (Acetaminophen 500 Mg Tablet) 500 mg PO Q4H PRN PRN PRN Reason: Temp > 100.4 F Last Admin: 06/28/20 21:23 Dose: 500 mg Documented by: Al Hydroxide/Mg Hydroxide (Mag Hydrox/Al Hydrox/Simeth 30 Ml Udc) 30 ml PO Q6H PRN PRN PRN Reason: dyspesia Bisacodyl (Bisacodyl 10 Mg Suppository) 10 mg RC DAILY PRN PRN Reason: Constipation Buprenorphine HCl (Buprenorphine Hcl 2 Mg Tab.Subl) 2 mg SL Q12H DI; Taper Stop: 06/30/20 20:29 Last Admin: 06/30/20 09:37 Dose: 2 mg Documented by: Clonidine (Clonidine Hcl 0.1 Mg Tablet) 0.1 mg PO Q8H PRN PRN PRN Reason: RESTLESSNESS Last Admin: 06/29/20 20:22 Dose: 0.1 mg Documented by: Dicyclomine HCl (Dicyclomine 10 Mg Capsule) 20 mg PO Q6H PRN PRN PRN Reason: Abdominal Discomfort Last Admin: 06/29/20 20:22 Dose: 20 mg Documented by: Gabapentin (Gabapentin 300 Mg Capsule) 300 mg PO Q8H PRN PRN PRN Reason: moderate to severe anxiety Last Admin: 06/30/20 02:01 Dose: 300 mg Documented by: Hydroxyzine Pamoate (Hydroxyzine Jumana 25 Mg Capsule) 50 mg PO Q6H PRN PRN PRN Reason: mild anxiety Last Admin: 06/28/20 21:23 Dose: 50 mg Documented by: Ibuprofen (Ibuprofen 600 Mg Tablet) 600 mg PO Q8H PRN PRN PRN Reason: PAIN -01/14 Last Admin: 06/30/20 02:01 Dose: 600 mg Documented by: Loperamide HCl (Loperamide 2 Mg Capsule) 2 mg PO Q4H PRN PRN PRN Reason: LOOSE STOOLS Methocarbamol (Methocarbamol 750 Mg Tablet) 1,500 mg PO Q6H PRN PRN PRN Reason: MUSCLE SPASM Last Admin: 06/29/20 20:22 Dose: 1,500 mg Documented by: Nicotine (Nicotine 21 Mg Patch) 21 mg TD DAILY [facility] Last Admin: 06/30/20 09:37 Dose: Not Given Documented by: Nutritional Formula (Lactose Free) (Ensure Enlive 120 Ml Liquid) 120 ml PO 4X/DAY [facility] Last Admin: 06/30/20 09:37 Dose: 120 ml Documented by: Ondansetron HCl (Ondansetron 8 Mg Tablet) 8 mg PO Q8H PRN PRN PRN Reason: NAUSEA Last Admin: 06/29/20 09:55 Dose: 8 mg Documented by: Senna (Senna Tablet) 2 tablet PO QHS PRN PRN Reason: Constipation Trazodone HCl (Trazodone 100 Mg Tablet) 100 mg PO QHS PRN PRN PRN Reason: INSOMNIA Discharge Diet: No Restrictions Discharge Activity: Return to Normal Activity Weight Bearing Status: Weight bearing as tolerated Home Medications: Medications to take at Discharge Buspirone HCl 10 mg PO BID 06/27/20 traZODone [Desyrel] 50 mg PO QHS 06/27/20 Primary Care Physician: Care Physician,No Primary [Primary Care Provider] - Please Follow Up With: [facility] When: 1-2 weeks to establish PCP care Patient Instructions: ED Drug Abuse, ED Abuse Drug Narcotic Sedative Rx Disposition: Home Minutes spent on discharge:: 40 Medical Necessity - Tobacco Use Smoking Status: Current every day smoker Tobacco Use: Cigarettes Meaningful Use Info Meaningful Use Diagnoses (Choose all that apply): None applicable Inpatient E&M: 11006 Disch Hosp
[2020-06-30 13:07] VITALS: BP 103/50; PULSE 70; RESP 16; TEMP 36.7; O2SAT 98
== END 2020-06-30 13:20 | DRG 816 ==
LOC: ED 17:31 → MS3 18:07
PROVIDERS: Family Medicine; Admitting Provider Internal Medicine; Emergency Provider Emergency Medicine; Visit Provider Student in an Organized Health Care Education/Training Program
DX: T40.1X1A Poisoning by heroin, accidental (unintentional), initial encounter (principal); R40.20 Unspecified coma; R11.0 Nausea; Y92.810 Car as the place of occurrence of the external cause; F11.23 Opioid dependence with withdrawal; F15.20 Other stimulant dependence, uncomplicated; F17.210 Nicotine dependence, cigarettes, uncomplicated; F31.9 Bipolar disorder, unspecified; F41.9 Anxiety disorder, unspecified; B18.2 Chronic viral hepatitis C; B18.1 Chronic viral hepatitis B without delta-agent; G56.02 Carpal tunnel syndrome, left upper limb; M79.644 Pain in right finger(s); L03.115 Cellulitis of right lower limb; Z91.5 Personal history of self-harm; Z81.8 Family history of other mental and behavioral disorders
CPT/HCPCS: 36415; 71045; 73130; 80053; 80307; 81001; 82077; 85025; 85610; 87040; 87086; 87426; 97802; 99284; 99285; J7030; J2405

== ENCOUNTER 2020-07-19 18:31 | Observation (INO) | payer MEDICAID, SELFPAY ==
[2020-07-19 18:32] VITALS: BP 123/77; PULSE 65; RESP 14; TEMP 36.4; O2SAT 100; BMI 21.4
--- NOTE | 2020-07-19 18:44 | ED.VIS.GEN ---
History of Present Illness Chief Complaint: Substance Abuse Informant: Patient Onset: Month(s) Maximum Severity: Mild Narrative: Patient presents asking for heroin and methamphetamine IV drug abuse he has a long history of the above he has no history of complications from the above other than to report he has hep C, he was detoxed at this facility 1 month ago for the same he was supposed to follow-up outpatient detox he did not then he began using again, He followed up with [facility] on Friday time that he wanted detox he indicates he was told to come to this facility to be admitted for detox and then follow-up with outpatient detox house. His last use of heroin and methamphetamine was Friday over 24 hours ago, he always injects his injection sites are unremarkable he has no complaints Past Medical History - Allergies and Home Meds Allergies/Adverse Reactions: Allergies No Known Allergies Allergy (Verified 07/19/20 18:32) Primary Care Physician: Care Physician,No Primary [Primary Care Provider] - Past Medical History: - - IV drug abuse Surgical History: no surgical history Smoking Status: Current every day smoker - Family History Maternal Family History: Family History (Last Reviewed 06/27/20 @ 18:17 by Jennifer Talbert NP-C) Mother Sleep apnea Depression Father Prostate cancer Grandfather Prostate cancer Family History: Reports: - - Patient denies any maternal medical history. Paternal Family History: Family History (Last Reviewed 06/27/20 @ 18:17 by Jennifer Talbert NP-C) Mother Sleep apnea Depression Father Prostate cancer Grandfather Prostate cancer Family History: Reports: Cancer - Prostate Review of Systems General: Denies: Chills, Fever, Sweats Eyes: Denies: Visual changes - bilaterally, Diplopia ENT: Denies: Rhinorrhea, Sore throat Cardiovascular: Denies: Chest pain, Palpitations Respiratory: Denies: Dyspnea, Cough, Dyspnea on exertion Gastrointestinal: Denies: Abdominal pain, Nausea, Vomiting, Diarrhea, Melena, Hematochezia Genitourinary: Denies: Dysuria, Hematuria, Frequency Musculoskeletal: Denies: Back pain, Extremity Pain Skin: Denies: Rash, Wounds Neurological: Denies: Headache, Weakness, Numbness Psych: Denies: Depression Endocrine: Denies: Polyuria Physical Exam Vital Signs/Narrative: Vital Signs Temp Pulse Resp BP Pulse Ox 07/19/20 18:32 97.6 F L 65 14 123/77 H 100 General: Well nourished, Well developed, No Acute Distress Head: Normocephalic, Atraumatic Eyes: Perrl, EOMI ENT: Moist mucous membranes, No rhinorrhea Neck: Supple, Nontender Cardiovascular: Regular rate, Regular rhythm, No murmurs Respiratory: No distress, CTA bilaterally, Chest nontender Abdomen: Soft, Nontender, Nondistended, Normal bowel sounds Back: Nontender, Normal Inspection Extremities: Nontender, No edema Skin: Normal color, No rash, - - Patient's extremities show signs of IV puncture turpin no infection Neurological: Alert, Oriented x3, Cranial nerves II-XII grossly intact, Normal Strength, Normal Sensation Psychological: Normal affect, Normal Mood Diagnostic/Tx/Re-eval - Medical Decision Making His vital signs are unremarkable I spoke with the hospitalist the patient's had multiple prior admissions for same most recently 2 weeks ago, he apparently has never followed up with the outpatient detox system hospitals will be down to talk to him about the detox system inpatient detox Need to be committed to the inpatient detox process Admit pending hospitalist evaluation Impression final IV heroin methamphetamine abuse requesting detox ED Disposition - Plan for ED Patient: Diagnosis: IV heroin and methamphetamine abuse requ Referrals: Care Physician,No Primary [Primary Care Provider] -
--- NOTE | 2020-07-19 19:06 | PCM.HP.STD ---
Problem List (1) Bipolar disorder Status: Chronic (2) Hepatitis C Status: Chronic (3) Hepatitis B Status: Chronic (4) Tobacco dependence Status: Chronic (5) Polysubstance (including opioids) dependence with physiological dependence Status: Chronic (6) Methamphetamine dependence Status: Chronic History of Present Illness Date of Admission: 07/19/20 Chief Complaint: Requesting admission for acute opioid withdrawal. The patient is a 35 year old M with past medical history as mentioned above presented to the emergency room requesting admission for acute opioid withdrawal for medical stabilization. Patient was discharged from the hospital on June 30, 2020 after admission for acute opioid withdrawal. He supposed to follow-up with [facility] but he did not until this past Friday and he started using IV heroin and amphetamines shortly after discharge. Patient claimed that this past Friday, he was seen at [address] [place] [address] and recommended to go for inpatient detoxification and then to go for residential treatment for acute opiate withdrawal. Patient has been using IV heroin daily, about half a gram every day and also admitted using amphetamines. His last use was yesterday. His main complaints are anxiety, restlessness and body shakes, associated with tearful eyes and nausea. He denied vomiting or abdominal pain. In the emergency department, his vital signs were stable. No blood work was done today. His routine blood work that was done on last admission on June 27, 2020 was unremarkable. On that day, LFT revealed elevated liver transaminases which is secondary to chronic hepatitis C. He is being admitted for acute opioid withdrawal for medical stabilization. Past Medical History Past Medical History (Chronic Problems): Chronic Problems (Last Updated 07/19/20 @ 19:[address] Elin Doe MD) Bipolar disorder (Chronic) History of suicide attempt (Chronic) Anxiety (Chronic) Hepatitis C (Chronic) Hepatitis B (Chronic) Tobacco dependence (Chronic) Polysubstance (including opioids) dependence with physiological dependence (Chronic) Methamphetamine dependence (Chronic) Medical History: Medical History (Last Updated 07/19/20 @ 19:[address] Elin Doe MD) Anxiety (Chronic) F41.9 Allergies No Known Allergies Allergy (Verified 07/19/20 18:32) Home Medications: Ambulatory Orders Medication Instructions Recorded Buspirone HCl 10 mg PO BID 06/27/20 traZODone [Desyrel] 50 mg PO QHS 06/27/20 Surgical History: Surgical History (Last Reviewed 06/27/20 @ 18:16 by AMARI Jones) No history of previous surgery Surgical History: no surgical history Psychiatric History: Anxiety Smoking Status: Current every day smoker Tobacco Use: Cigarettes Alcohol: None Drugs: Heroin, - - Amphetamines - *Family History Maternal Family History: Family History (Last Reviewed 06/27/20 @ 18:17 by AMARI Jones) Mother Sleep apnea Depression Father Prostate cancer Grandfather Prostate cancer History Items: - Paternal Family History: Family History (Last Reviewed 06/27/20 @ 18:17 by AMARI Jones) Mother Sleep apnea Depression Father Prostate cancer Grandfather Prostate cancer History Items: Cancer - Prostate Review of Systems Constitutional: Reports: Malaise. Denies: Anorexia, Chills, Fever, Weakness Eyes: Denies: Blurred vision, Double vision, Drainage, Redness HEENT: Denies: Difficulty Hearing, Ear Pain, Eye Pain, Nasal Congestion, Sore Throat Cardiovascular: Denies: Chest Pain, Claudication, Chest Tightness, Edema, Palpitations, Syncope Respiratory: Denies: Cough, Pleuritic Pain, Shortness of Breath, Sputum production, Wheezing Gastrointestinal: Reports: Nausea. Denies: Abdominal Pain, Constipation, Diarrhea, Vomiting Genitourinary: Denies: Dysuria, Frequency, Hematuria Musculoskeletal: Reports: Muscle pain. Denies: Arm Pain, Back Pain Skin: Denies: Dryness, Rash Neurological: Reports: Tremor. Denies: Balance problems, Blurred vision, Double vision, Change in Speech, Slurred speech, Confusion Psychiatric: Reports: Anxiety, Depression Endocrine: Denies: Change in Body Habitus, Polydipsia, Polyuria VTE Information - Inpt Only VTE Present on Admission: No VTE Mechan Device Prophylaxis: None VTE Pharm Prophylaxis ordered?: No - Physical Exam Vitals/I&O's: Vital Signs Temp Pulse Resp BP Pulse Ox 97.6 F L 65 14 123/77 H 100 07/19/20 18:32 07/19/20 18:32 07/19/20 18:32 07/19/20 18:32 07/19/20 18:32 Oxygen Delivery Method Room Air Weight: 171 lb 15.369 oz Body Mass Index (BMI) 21.4 General: Alert, Oriented x3, Cooperative, No apparent distress HEENT: Atraumatic, PERRLA, EOMI, Normocephalic Oral: Moist Mucosa, No Gingival or Mucosal Lesions/ Ulcerations Neck: Supple, No JVD, Negative Carotid Bruits, Trachea Midline, Thyroid Normal Size and Texture Lungs: Clear to auscultation, Normal air movement, No rhonchi, No wheeze, No rales Cardiovascular: Regular rate, Regular Rhythm, Normal S1, Normal S2, PMI Normal Abdomen: Bowel Sounds Present, Soft, Non Tender, Non-Distended, No Hepato-splenomegaly Extremities: No clubbing, No cyanosis, No edema Skin: No rashes, No breakdown Lymphatic: No Cervical, Supraclavicular, or Inguinal Adenopathy Neurological: Cranial nerves II-XII grossly intact, Motor Exam 5/5 strength throughout Psych/Mental Status: Normal Affect, Appropriate, Alert and oriented to time, place, person, mood and affect Assessment/Plan This is a 35 years old male patient presented to the emergency room requesting admission for acute opioid withdrawal for medical stabilization. #1 acute opiate withdrawal: With frequent admissions for detox, last admission was June 30, 2020. Patient claimed that he was seen at [facility] and recommended inpatient detox at this time and then he will go for inpatient residential treatment. No blood work done today because he had recent normal blood work. Plan: Admit to [facility] floor, initiate acute opioid withdrawal protocol with tapering Subutex, urine drug screen, blood alcohol level, as needed Catapres, Bentyl, gabapentin, Vistaril, ibuprofen, Imodium, methocarbamol and Zofran, continue trazodone nightly, consult [facility]. #2 anxiety and depression: Stable, continue risperidone and trazodone. #3 chronic hepatitis C: He had elevated liver transplant recently. Stable otherwise. #4 tobacco abuse: NicoDerm patch. #5 DVT prophylaxis: Low risk patient, no prophylaxis indicated. This note was generated with [employer] dictation software. It may contain incorrect words, spelling, and punctuation that were not noted in checking the note before signing. Inpatient E&M: 31633 Init Hosp L2
[2020-07-19 19:12] VITALS: BMI 21.5
[2020-07-19 19:36] VITALS: BP 123/77; PULSE 65; RESP 14; TEMP 36.4; O2SAT 100
--- NOTE | 2020-07-19 19:44 | CM.ED ---
SOCIAL WORK Reason for Consult: Substance abuse-requesting detox from heroin and meth Patient presents for detox. Patient reported to be in detox about a month ago and relapsed. Patient stated last use of heroin and meth was on Friday or Friday. Patient states has been in contact with [facility] and wishes to get into residential treatment. Call to [facility] Treatment Navigator, Gage. Updated on patient's admission to [facility]. Gage reports Tori will be in tomorrow to complete assessment. 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
[2020-07-19 19:50] VITALS: BMI 20.9
[2020-07-19 19:54] VITALS: BP 131/67; RESP 16; TEMP 36.8; O2SAT 100
[2020-07-19] MEDS: busPIRone 5 MG Tablet 10 MG PO (20:46)
[2020-07-19] MEDS: traZODone 50 MG Tablet PO (20:46)
[2020-07-19 21:05] LABS: Alcohol, Blood (Medical)-Serum < 3.0 mg/dL
[2020-07-19] MEDS: Dicyclomine 10 MG Capsule 20 MG PO (21:06)
[2020-07-19] MEDS: Ondansetron 8 MG Tablet PO (21:06)
[2020-07-19] MEDS: Gabapentin 300 MG Capsule PO (21:06)
[2020-07-19] MEDS: Methocarbamol 750 MG Tablet 1500 MG PO (21:06)
[2020-07-19] MEDS: Ibuprofen 600 MG Tablet PO (21:06)
[2020-07-19] MEDS: Buprenorphine HCl 2 MG TAB.SUBL SL (22:26)
[2020-07-20] MEDS: Buprenorphine HCl 2 MG TAB.SUBL SL ×3 (04:57→21:09)
[2020-07-20] MEDS: Ibuprofen 600 MG Tablet PO ×2 (04:58→22:03)
[2020-07-20] MEDS: Gabapentin 300 MG Capsule PO ×2 (04:58→17:28)
[2020-07-20] MEDS: Methocarbamol 750 MG Tablet 1500 MG PO ×2 (04:58→17:28)
[2020-07-20 05:00] VITALS: BP 107/65; PULSE 50; RESP 16; TEMP 36.6; O2SAT 98
[2020-07-20] MEDS: busPIRone 5 MG Tablet 10 MG PO ×2 (08:49→21:10)
--- NOTE | 2020-07-20 09:54 | ADDICTION ---
This proposal manager writer attempted to meet with PT to conduct assessments. PT stated that he is not feeling well and would prefer to meet tomorrow. PT plans to admit to [facility] and has started the admit process prior to presenting at [facility]. This proposal manager writer will provide referral to [facility] and set up direct admit for friday07/24/20 if PT has been accepted into the program. Assessments to be completed on 07/21/20.
[2020-07-20 10:27] VITALS: BP 108/62; PULSE 52; RESP 16; TEMP 36.7; O2SAT 98
--- NOTE | 2020-07-20 13:01 | PN_ITS ---
Reason for Visit: Complains of yawning, rhinitis, abdominal cramp and restless legs. Overall, feeling better. Vitals/I&O's: Vital Signs Temp Pulse Resp BP Pulse Ox 36.7 C 52 L 16 108/62 98 07/20/20 10:27 07/20/20 10:27 07/20/20 10:27 07/20/20 10:27 07/20/20 10:27 Oxygen Delivery Method Room Air Weight: 76.067 kg Body Mass Index (BMI) 20.9 General: Alert, No apparent distress HEENT: Atraumatic, Normocephalic Oral: Moist Mucosa, No Gingival or Mucosal Lesions/ Ulcerations Neck: No Nodes, Thyroid Normal Size and Texture Lungs: Clear to auscultation, Normal air movement, No rhonchi, No wheeze, No rales Cardiovascular: Regular rate, Regular Rhythm, Normal S1, Normal S2, No murmurs Abdomen: Bowel Sounds Present, Soft, Non Tender, Non-Distended, No Hepato- splenomegaly Extremities: No edema, No Calf Tenderness Psych/Mental Status: Normal Affect, Appropriate Laboratory Results 07/19/20 20:44: Ethyl Alcohol < 3.0 Current Medications Buprenorphine HCl (Buprenorphine Hcl 2 Mg Tab.Subl) 4 mg SL Q8H DI; Taper Stop: 07/22/20 21:29 Last Admin: 07/20/20 04:57 Dose: 4 mg Documented by: Buspirone HCl (Buspirone 5 Mg Tablet) 10 mg PO BID DI Last Admin: 07/20/20 08:49 Dose: 10 mg Documented by: Clonidine (Clonidine Hcl 0.1 Mg Tablet) 0.1 mg PO Q8H PRN PRN PRN Reason: RESTLESSNESS Dicyclomine HCl (Dicyclomine 10 Mg Capsule) 20 mg PO Q6H PRN PRN PRN Reason: Abdominal Discomfort Last Admin: 07/19/20 21:06 Dose: 20 mg Documented by: Gabapentin (Gabapentin 300 Mg Capsule) 300 mg PO Q8H PRN PRN PRN Reason: moderate to severe anxiety Last Admin: 07/20/20 04:58 Dose: 300 mg Documented by: Hydroxyzine Pamoate (Hydroxyzine Jumana 25 Mg Capsule) 50 mg PO Q6H PRN PRN PRN Reason: mild anxiety Ibuprofen (Ibuprofen 600 Mg Tablet) 600 mg PO Q8H PRN PRN PRN Reason: PAIN Last Admin: 07/20/20 04:58 Dose: 600 mg Documented by: Loperamide HCl (Loperamide 2 Mg Capsule) 2 mg PO Q4H PRN PRN PRN Reason: LOOSE STOOLS Methocarbamol (Methocarbamol 750 Mg Tablet) 1,500 mg PO Q6H PRN PRN PRN Reason: MUSCLE SPASM Last Admin: 07/20/20 04:58 Dose: 1,500 mg Documented by: Nicotine (Nicotine 21 Mg Patch) 21 mg TD DAILY [facility] Last Admin: 07/20/20 08:49 Dose: 21 mg Documented by: Ondansetron HCl (Ondansetron 8 Mg Tablet) 8 mg PO Q8H PRN PRN PRN Reason: NAUSEA Last Admin: 07/19/20 21:06 Dose: 8 mg Documented by: Sodium Chloride (0.9% Saline Lock 10 Ml Syringe) 10 - 40 ml IV UD PRN PRN Reason: SALINE FLUSH Trazodone HCl (Trazodone 50 Mg Tablet) 50 mg PO QHS [facility] Last Admin: 07/19/20 20:46 Dose: 50 mg Documented by: STROKE Vital Signs/Narrative: Vital Signs Temp Pulse Resp BP Pulse Ox 07/20/20 10:27 36.7 C 52 L 16 108/62 98 Medical Necessity - Tobacco Use Smoking Status: Current every day smoker Tobacco Use: Cigarettes Assessment/Plan 1. acute opiate withdrawal Continue with buprenorphine taper and continue with other medications as needed for somatic symptoms associated with his acute opiate withdrawal. Patient to follow-up with [facility] upon discharge. Patient states that he is to enroll directly into the program after discharge. Addiction medicine to assist. 2. Anxiety and depression Continue with hours baritone and trazodone 3. Chronic hepatitis C Mild elevation of liver transaminases from June 27 where his AST and ALT are 149 and 163 respectively. Follow-up LFTs as outpatient and referral to specialist on discharge. 4. VTE prophylaxis: Not indicated. As he is low risk. Inpatient E&M: 93080 [facility] Hosp L2
[2020-07-20 14:02] VITALS: BP 99/42; PULSE 60; RESP 18; TEMP 37.3; O2SAT 99
[2020-07-20 20:34] VITALS: BP 118/56; PULSE 55; RESP 16; TEMP 36.8; O2SAT 100
[2020-07-20] MEDS: traZODone 50 MG Tablet PO (21:09)
[2020-07-20 21:23] VITALS: PULSE 55
[2020-07-21 02:00] VITALS: BP 121/71; PULSE 60; RESP 16; TEMP 36.9; O2SAT 98
[2020-07-21] MEDS: Buprenorphine HCl 2 MG TAB.SUBL SL ×2 (05:24→13:56)
[2020-07-21 08:07] VITALS: BP 112/71; PULSE 53; RESP 14; TEMP 36.6; O2SAT 98
[2020-07-21] MEDS: busPIRone 5 MG Tablet 10 MG PO (08:09)
--- NOTE | 2020-07-21 09:07 | PN_ITS ---
Reason for Visit: opiate withdrawal Subjective: Feels much better. Wants to be discharged and going to [facility]. Vitals/I&O's: Vital Signs Temp Pulse Resp BP Pulse Ox 36.6 C 53 L 14 112/71 98 07/21/20 08:07 07/21/20 08:07 07/21/20 08:07 07/21/20 08:07 07/21/20 08:07 Oxygen Delivery Method Room Air Weight: 76.067 kg Body Mass Index (BMI) 20.9 General: Alert, No apparent distress, - - Up walking in his room. HEENT: Atraumatic, Normocephalic Current Medications Buprenorphine HCl (Buprenorphine Hcl 2 Mg Tab.Subl) 2 mg SL Q8H DI; Taper Stop: 07/22/20 21:29 Last Admin: 07/21/20 05:24 Dose: 2 mg Documented by: Buspirone HCl (Buspirone 5 Mg Tablet) 10 mg PO BID DI Last Admin: 07/21/20 08:09 Dose: 10 mg Documented by: Clonidine (Clonidine Hcl 0.1 Mg Tablet) 0.1 mg PO Q8H PRN PRN PRN Reason: RESTLESSNESS Dicyclomine HCl (Dicyclomine 10 Mg Capsule) 20 mg PO Q6H PRN PRN PRN Reason: Abdominal Discomfort Last Admin: 07/19/20 21:06 Dose: 20 mg Documented by: Gabapentin (Gabapentin 300 Mg Capsule) 300 mg PO Q8H PRN PRN PRN Reason: moderate to severe anxiety Last Admin: 07/20/20 17:28 Dose: 300 mg Documented by: Hydroxyzine Pamoate (Hydroxyzine Jumana 25 Mg Capsule) 50 mg PO Q6H PRN PRN PRN Reason: mild anxiety Ibuprofen (Ibuprofen 600 Mg Tablet) 600 mg PO Q8H PRN PRN PRN Reason: PAIN Last Admin: 07/20/20 22:03 Dose: 600 mg Documented by: Loperamide HCl (Loperamide 2 Mg Capsule) 2 mg PO Q4H PRN PRN PRN Reason: LOOSE STOOLS Methocarbamol (Methocarbamol 750 Mg Tablet) 1,500 mg PO Q6H PRN PRN PRN Reason: MUSCLE SPASM Last Admin: 07/20/20 17:28 Dose: 1,500 mg Documented by: Nicotine (Nicotine 21 Mg Patch) 21 mg TD DAILY [facility] Last Admin: 07/20/20 08:49 Dose: 21 mg Documented by: Ondansetron HCl (Ondansetron 8 Mg Tablet) 8 mg PO Q8H PRN PRN PRN Reason: NAUSEA Last Admin: 07/19/20 21:06 Dose: 8 mg Documented by: Sodium Chloride (0.9% Saline Lock 10 Ml Syringe) 10 - 40 ml IV UD PRN PRN Reason: SALINE FLUSH Trazodone HCl (Trazodone 50 Mg Tablet) 50 mg PO QHS [facility] Last Admin: 07/20/20 21:09 Dose: 50 mg Documented by: STROKE Vital Signs/Narrative: Vital Signs Temp Pulse Resp BP Pulse Ox 07/21/20 08:07 36.6 C 53 L 14 112/71 98 Medical Necessity - Tobacco Use Smoking Status: Current every day smoker Tobacco Use: Cigarettes Assessment/Plan 1. acute opiate withdrawal Subjectively improved continue with buprenorphine taper and continue with other medications as needed for somatic symptoms associated with his acute opiate withdrawal. Patient to follow-up with [facility] upon discharge. Patient states that he is to enroll directly into the program after discharge. Addiction medicine to assist. Patient states that they can take him but will need to verify that if that can be done today or Friday. Fifth Friday I am not sure the patient would stay until then. Patient already states that he feels ready to go today. 2. Anxiety and depression Continue with hours baritone and trazodone 3. Chronic hepatitis C Mild elevation of liver transaminases from June 27 where his AST and ALT are 149 and 163 respectively. Follow-up LFTs as outpatient and referral to specialist on discharge. 4. VTE prophylaxis: Not indicated. As he is low risk. Inpatient E&M: 33396 [facility] Hosp L1
--- NOTE | 2020-07-21 10:43 | ADDICTION ---
This video game script writer met with PT to complete ASAM, MSE, DUDIT assessments and to plan for d/c. PT alert and oriented x4 and participated appropriately. PT reported only mild w/d sx and requested to d/c today. All assessments completed, faxed to [facility] and placed in PT's chart. PT to d/c to home and will f/u with [facility] on Friday for admit to Residential.
[2020-07-21] MEDS: Gabapentin 300 MG Capsule PO (11:23)
--- NOTE | 2020-07-21 13:47 | DCINST_ITS ---
- Discharge Diagnoses Current Active Problems: Current Active and Chronic Problems (Last Updated 07/19/20 @ 19:[address] Elin Doe MD) Bipolar disorder (Chronic) Hepatitis C (Chronic) Hepatitis B (Chronic) Tobacco dependence (Chronic) Polysubstance (including opioids) dependence with physiological dependence (Chronic) Methamphetamine dependence (Chronic) You will use the following diet at home:: No restrictions Allergies/Adverse Reactions: Allergies No Known Allergies Allergy (Verified 07/19/20 18:32) Medications to take at Discharge Buspirone HCl 10 mg PO BID 06/27/20 traZODone [Desyrel] 50 mg PO QHS 06/27/20 Primary Care Physician: Care Physician,No Primary [NON-STAFF] - Test Results: Test results from this visit will be discussed in further detail at your follow- up appointment, if applicable. Please Follow Up With: [facility] When: 07/24/2020 Proposed Discharge Date: 07/21/20
--- NOTE | 2020-07-21 13:48 | PCM.DC.SUM ---
Discharge Date and Diagnosis Date of Admission: 07/19/20 Date of Discharge: 07/21/20 - Primary Discharge Diagnosis Acute Problems: acute opiate withdrawal - Secondary Discharge Diagnosis Chronic Problems: Chronic Problems (Last Updated 07/19/20 @ 19:[address] Elin Doe MD) Bipolar disorder (Chronic) History of suicide attempt (Chronic) Anxiety (Chronic) Hepatitis C (Chronic) Hepatitis B (Chronic) Tobacco dependence (Chronic) Polysubstance (including opioids) dependence with physiological dependence (Chronic) Methamphetamine dependence (Chronic) Hospital Course and Treatment Operations: None Procedures: None Summary of Care Provided: The patient is a 35 year old M presents seeking treatment for acute opiate withdrawal. Patient had recently gone through treatments but reverted to using heroin IV again. Patient had some somatic complaints but today improved. Patient felt comfortable being discharged. Patient was given the opportunity to stay until Friday was preferring to be discharged today. Given his symptomatic improvement and patient's request, patient will be discharged and patient will follow up with [facility] on the . Patient be discharged in stable condition. [] - Physical Exam Vitals/I&O's: Vital Signs Temp Pulse Resp BP Pulse Ox 36.6 C 53 L 14 112/71 98 07/21/20 08:07 07/21/20 08:07 07/21/20 08:07 07/21/20 08:07 07/21/20 08:07 Oxygen Delivery Method Room Air Weight: 76.067 kg Body Mass Index (BMI) 20.9 Current Medications Buprenorphine HCl (Buprenorphine Hcl 2 Mg Tab.Subl) 2 mg SL Q8H DI; Taper Stop: 07/22/20 21:29 Last Admin: 07/21/20 05:24 Dose: 2 mg Documented by: Buspirone HCl (Buspirone 5 Mg Tablet) 10 mg PO BID DI Last Admin: 07/21/20 08:09 Dose: 10 mg Documented by: Clonidine (Clonidine Hcl 0.1 Mg Tablet) 0.1 mg PO Q8H PRN PRN PRN Reason: RESTLESSNESS Dicyclomine HCl (Dicyclomine 10 Mg Capsule) 20 mg PO Q6H PRN PRN PRN Reason: Abdominal Discomfort Last Admin: 07/19/20 21:06 Dose: 20 mg Documented by: Gabapentin (Gabapentin 300 Mg Capsule) 300 mg PO Q8H PRN PRN PRN Reason: moderate to severe anxiety Last Admin: 07/21/20 11:23 Dose: 300 mg Documented by: Hydroxyzine Pamoate (Hydroxyzine Jumana 25 Mg Capsule) 50 mg PO Q6H PRN PRN PRN Reason: mild anxiety Ibuprofen (Ibuprofen 600 Mg Tablet) 600 mg PO Q8H PRN PRN PRN Reason: PAIN Last Admin: 07/20/20 22:03 Dose: 600 mg Documented by: Loperamide HCl (Loperamide 2 Mg Capsule) 2 mg PO Q4H PRN PRN PRN Reason: LOOSE STOOLS Methocarbamol (Methocarbamol 750 Mg Tablet) 1,500 mg PO Q6H PRN PRN PRN Reason: MUSCLE SPASM Last Admin: 07/20/20 17:28 Dose: 1,500 mg Documented by: Nicotine (Nicotine 21 Mg Patch) 21 mg TD DAILY [facility] Last Admin: 07/21/20 11:22 Dose: 21 mg Documented by: Ondansetron HCl (Ondansetron 8 Mg Tablet) 8 mg PO Q8H PRN PRN PRN Reason: NAUSEA Last Admin: 07/19/20 21:06 Dose: 8 mg Documented by: Sodium Chloride (0.9% Saline Lock 10 Ml Syringe) 10 - 40 ml IV UD PRN PRN Reason: SALINE FLUSH Trazodone HCl (Trazodone 50 Mg Tablet) 50 mg PO QHS [facility] Last Admin: 07/20/20 21:09 Dose: 50 mg Documented by: Discharge Diet: No Restrictions Home Medications: Medications to take at Discharge Buspirone HCl 10 mg PO BID 06/27/20 traZODone [Desyrel] 50 mg PO QHS 06/27/20 Primary Care Physician: Care Physician,No Primary [NON-STAFF] - Please Follow Up With: [facility] When: 07/24/2020 Disposition: Home Minutes spent on discharge:: 24 Patient Condition:: Good Medical Necessity - Tobacco Use Smoking Status: Current every day smoker Tobacco Use: Cigarettes Meaningful Use Info Meaningful Use Diagnoses (Choose all that apply): None applicable Inpatient E&M: 75892 [facility] Hosp
[2020-07-21 14:00] VITALS: BP 128/77; PULSE 52; RESP 18; TEMP 36.7; O2SAT 98
[2020-07-21] MEDS: cloNIDine HCl 0.1 MG Tablet PO (14:04)
== END 2020-07-21 17:35 | disposition home or self-care (01) | DRG 773 ==
LOC: ED 18:48 → MS3 07-20 07:04
PROVIDERS: Admitting Provider Hospitalist; Emergency Provider Emergency Medicine; PCP Nurse Practitioner Family
DX: F11.23 Opioid dependence with withdrawal (principal); F15.20 Other stimulant dependence, uncomplicated; F31.9 Bipolar disorder, unspecified; F41.9 Anxiety disorder, unspecified; B18.1 Chronic viral hepatitis B without delta-agent; B18.2 Chronic viral hepatitis C; F17.210 Nicotine dependence, cigarettes, uncomplicated; Z91.5 Personal history of self-harm; Z79.899 Other long term (current) drug therapy; Z81.8 Family history of other mental and behavioral disorders
CPT/HCPCS: 36415; 82077; 99218; 99283; 99406; G0378

== ENCOUNTER 2020-07-23 20:17 | Emergency (ER) | payer MEDICAID, SELFPAY ==
[2020-07-23 20:18] VITALS: BP 111/73; PULSE 93; RESP 18; TEMP 36.9; O2SAT 99; BMI 20.9
--- NOTE | 2020-07-23 20:20 | CT_ITS ---
History: altered mental status EXAMINATION: CT Head or Brain W/O Contrast Injection .Sagittal and coronal 2-D reformats TECHNIQUE: Multiple axial images were obtained of the head without intravenous contrast. A radiation dose optimization technique was used for this scan. IV Contrast dosage and agent: None 265 COMPARISON: None FINDINGS: BRAIN PARENCHYMA: No intra- or extra-axial hemorrhage. No evidence of acute infarct. No intracranial mass or mass effect. There is preservation of the benitez/white matter interface. Posterior fossa structures are unremarkable. CSF SPACES: Appropriate for age. No hydrocephalus. Basal cisterns are patent. CALVARIUM, SKULL BASE, PARANASAL SINUSES AND MASTOID AIR CELLS: Paranasal sinuses are clear. No discrete lytic or blastic abnormalities. ORBITS: Both globes, extraocular muscles, optic nerves and retrobulbar fat appear unremarkable. ASPECTS Score for Acute Strokes: 10 CT/Brain/Head without Contrast IMPRESSION: Negative Brain CT without contrast. Individualized dose optimization techniques were used for this CT. at 2203 Reported and signed by: Wilmer Henderson MD Electronically Signed: Wilmer Henderson MD at 22:02 EDT Tel , Service support ,
--- NOTE | 2020-07-23 20:22 | EKG12_ITS ---
Test Reason : SUBSTANCE ABUSE Blood Pressure : / mmHG Vent. Rate : 095 BPM Atrial Rate : 095 BPM P-R Int : 114 ms QRS Dur : 094 ms QT Int : 386 ms P-R-T Axes : 074 080 060 degrees QTc Int : 485 ms Normal sinus rhythm Nonspecific ST abnormality Prolonged QT Abnormal ECG Confirmed by KELLIE HILTON, FARSHAD ([id number]), sound editor PARKER SHERIDAN ([id number]) on 07/25/2020 8:41:48 AM Referred By: RUI Confirmed By:CHANELL HOPKINS MD
--- NOTE | 2020-07-23 20:22 | ED.VIS.GEN ---
History of Present Illness Chief Complaint: Substance Abuse Informant: Patient Limited by: Intoxicated, - - Altered Narrative: Patient brought in by EMS due to meth. Apparently he was on someone's porch, it was a stranger, he was acting unusual and they called police. At 1 point patient agrees to use methamphetamine, however he is not able to answer any questions and then information is very limited. EMS states they did not have any studies like a blood sugar done. - Past Medical History (1) Anxiety Status: Chronic (2) Bipolar disorder Status: Chronic (3) Hepatitis B Status: Chronic (4) Hepatitis C Status: Chronic (5) Methamphetamine dependence Status: Chronic (6) Polysubstance (including opioids) dependence with physiological dependence Status: Chronic Past Medical History - Allergies and Home Meds Allergies/Adverse Reactions: Allergies No Known Allergies Allergy (Verified 07/23/20 20:21) Primary Care Physician: En Boone NP, TRANSMISSION ENGINEER-C [Primary Care Provider] - [facility] [STAFF PHYSICIAN] - As soon as possible (If you want help with addiction problems) Surgical History: no surgical history Smoking Status: Current every day smoker - Family History Maternal Family History: Family History (Last Reviewed 06/27/20 @ 18:17 by Jennifer Talbert NP-C) Mother Sleep apnea Depression Father Prostate cancer Grandfather Prostate cancer Family History: Reports: - Paternal Family History: Family History (Last Reviewed 06/27/20 @ 18:17 by JOSE JonesC) Mother Sleep apnea Depression Father Prostate cancer Grandfather Prostate cancer Family History: Reports: Cancer - Prostate Review of Systems ROS: Unable to Obtain Physical Exam Vital Signs/Narrative: Vital Signs Temp Pulse Resp BP Pulse Ox 07/23/20 20:18 98.5 F 93 18 111/73 99 Inital Vital Signs reviewed: Yes General: Well nourished, Well developed, No Acute Distress - Altered, does not respond to most questions but awake Head: Normocephalic, Atraumatic Eyes: Perrl - Dilated symmetric, EOMI ENT: Moist mucous membranes, No rhinorrhea Neck: Supple, Nontender Cardiovascular: Regular rate, Regular rhythm, No murmurs Respiratory: No distress, CTA bilaterally, Chest nontender Abdomen: Soft, Nontender, Nondistended, Normal bowel sounds Back: Nontender, Normal Inspection Extremities: Nontender, No edema Skin: Normal color, No rash, No Trauma, - - Noninfected antecubital fossa track turpin left upper extremity Neurological: Alert, Cranial nerves II-XII grossly intact, Normal Strength, Normal Sensation, Disoriented, Lethargic Psychological: Normal affect, Normal Mood Diagnostic/Tx/Re-eval Chest X-Ray - ED: 1 View, Read by ED Physician, Normal, No Acute Disease, No Infiltrates Impressions Brain CT 07/23/20 20:20 IMPRESSION: Negative Brain CT without contrast. Individualized dose optimization techniques were used for this CT. at 2203 Reported and signed by: Wilmer Henderson MD Electronically Signed: Wilmer Henderson MD at 22:02 EDT Tel , Service support , Chest X-Ray 07/23/20 20:34 IMPRESSION: Normal x-ray examination of the chest. Electronically Signed: Da Gee MD at 20:58 EDT , Service support , 07/23/20 20:20 Brain/Head without Contrast [CT] Stat 07/23/20 20:34 Chest 1 View (Portable) [RAD] Stat Laboratory Results 07/23/20 07/23/20 07/23/20 20:33 20:33 20:33 WBC 5.3 RBC 4.25 L Hgb 12.7 L Hct 38.4 L MCV 90.4 MCH 29.9 MCHC 33.1 RDW Std Deviation 39.8 RDW Coeff of Clement 12.0 Plt Count 194 MPV 9.9 Immature Gran % (Auto) 0.200 Neut % (Auto) 68.2 Lymph % (Auto) 19.8 Graves % (Auto) 10.3 H Eos % (Auto) 1.3 Baso % (Auto) 0.2 Absolute Neuts (auto) 3.6 Absolute Lymphs (auto) 1.04 Nucleated RBC % 0 Sodium 141 Potassium 4.2 Chloride 104 Carbon Dioxide 30.0 Anion Gap 7 BUN 24 H Creatinine 1.43 H Estim Creat Clear Calc 75.83 Est GFR (MDRD) Af Amer 71 Est GFR (MDRD) Non-Af 59 L BUN/Creatinine Ratio 16.8 Glucose 76 Calcium 9.7 Troponin I < 0.015 Ethyl Alcohol < 3.0 - Rhythm Strip Rhythm Strip: Sinus Rhythm Rate: 95 Ectopy: None - EKG Initial EKG Interpretation: Sinus Rhythm, No Acute Injury Pattern Prior: Unchanged - Medical Decision Making Patient was observed for about 2 hours, and on reevaluation he is awake, coherent, and is able to tell nurses the phone number of the person he wants to call for a ride home. He states he is just feeling stressed out. Work-up as above. Waiting for toxicology/urinalysis, however I do not think that will be necessary now since the patient admitted using methamphetamine appeared intoxicated, and now with observation is much better and ambulatory without difficulty. His creatinine is noted to be elevated compared with his prior readings, his last one was 1.03 on 06/27/2020. I discussed this with him, I do not think he needs to be admitted to the hospital for it. It does not need to be checked in the future though. Discharged home in stable condition. ED Disposition - Plan for ED Patient: Disposition: Home or Assisted Living Diagnosis: Methamphetamine intoxication, SUSIE (acute kidney injury) Instructions: Understanding Methamphetamine Abuse and Addiction Referrals: En Boone NP, TRANSMISSION ENGINEER-C [Primary Care Provider] - [facility] [STAFF PHYSICIAN] - As soon as possible (If you want help with addiction problems)
--- NOTE | 2020-07-23 20:34 | RAD_ITS ---
STUDY: X-RAY CHEST REASON FOR EXAM: Male, 35 years old. altered mental status TECHNIQUE: Single AP portable view of the chest. COMPARISON: Chest x-ray dated June 28, 2020 FINDINGS: The lungs are clear and expanded. There is no demonstrated pleural abnormality. Normal size heart. Normal mediastinum and john. Normal visualized pulmonary arteries. Normal visualized aortic arch and descending thoracic aorta. Normal visualized thoracic spine. Normal visualized ribs, clavicles, and shoulders. There is no demonstrated abnormality of the visualized soft tissue structures of the upper abdomen. RAD/Chest 1 View (Portable) IMPRESSION: Normal x-ray examination of the chest. Electronically Signed: Da Gee MD at 20:58 EDT , Service support ,
[2020-07-23 20:44] LABS: Absolute Lymphocyte Count 1.04 X10^3/uL (0.83-4.51); Absolute Neutrophil Count 3.6 X10^3/uL (2.0-7.7); Basophil# 0.01 X10^3/uL; Basophil% 0.2 % (0-1); Eosinophil# 0.07 X10^3/uL; Eosinophils% 1.3 % (0-5); Hematocrit 38.4 % (40-54); Hemoglobin 12.7 g/dL (13.0-16.5); Lymphocyte # 1.04 X10^3/ul (0.83-4.51); Lymphocyte % 19.8 % (19-41); Mean Corp Hgb Conc 33.1 g/dL (32-36); Mean Corpuscular Hgb 29.9 pg (27.0-32.0); Mean Corpuscular Volume 90.4 fL (80-94); Mean Platelet Vol. 9.9 fl (6.2-12.0); Monocyte# 0.54 X10^3/uL; Monocyte% 10.3 % (0-10); NRBC Flagged by Analyzer 0 % (0-5); Neutrophil # 3.58 X10^3/uL (2.7-7.7); Neutrophil % 68.2 % (47-70); Platelet Count 194 K/mm3 (150-450); RBC Distribution Width SD 39.8 fl (35.1-43.9); Red Blood Count 4.25 M/mm3 (4.6-6.2); White Blood Count 5.3 K/mm3 (4.4-11.0)
[2020-07-23 21:00] LABS: Anion Gap 7 (5-15); BUN 24 mg/dL (7-18); BUN/Creat Ratio 16.8 RATIO (10-20); Calcium,Total 9.7 mg/dL (8.5-10.1); Chloride 104 mmol/L (98-107); Creatinine, Serum 1.43 mg/dL (0.70-1.30); EST Glomerular Filtration Rate 59 mL/min (>60); Est Glom Filt Rate - Afr Amer 71 mL/min (>60); Estimated Creatinine Clearance 75.83 ml/min; Glucose 76 mg/dL (74-106); Potassium 4.2 mmol/L (3.5-5.1); Sodium Level 141 mmol/L (136-145)
[2020-07-23 21:16] LABS: Alcohol, Blood (Medical)-Serum < 3.0 mg/dL
[2020-07-23 22:17] VITALS: BP 109/70; PULSE 87; RESP 18
== END 2020-07-23 22:41 | disposition home or self-care (01) ==
PROVIDERS: Emergency Provider Emergency Medicine; PCP Nurse Practitioner Family
DX: F15.229 Other stimulant dependence with intoxication, unspecified (principal); F17.200 Nicotine dependence, unspecified, uncomplicated; N17.9 Acute kidney failure, unspecified
CPT/HCPCS: 70450; 71045; 80048; 82077; 84484; 85025; 93005; 99285; A4216

== ENCOUNTER 2020-07-24 03:48 | Emergency (ER) | payer MEDICAID, SELFPAY ==
[2020-07-23 20:18] VITALS: BMI 20.9
[2020-07-24 03:48] VITALS: BP 127/75; PULSE 102; RESP 18; TEMP 35.9; O2SAT 98; BMI 23.0
--- NOTE | 2020-07-24 04:08 | RAD_ITS ---
HISTORY: Injury/Pain COMPARISON: None FINDINGS: # of images incl. paperwork: 3 XR Ankle Min 3 Views : No fracture or osseous abnormality. The ankle mortise is intact. Soft tissue swelling is not seen. RAD/Ankle min 3 Views IMPRESSION: Normal Left ankle at 0432 Reported and signed by: Wilmer Henderson MD Electronically Signed: Wilmer Henderson MD at 4:31 EDT Tel , Service support ,
--- NOTE | 2020-07-24 04:08 | RAD_ITS ---
HISTORY: Injury/Pain Technique: Left foot AP, lateral, and oblique radiographs Comparison: None available Findings: No acute fracture or dislocation. Osseous mineralization, joint spaces, and alignment otherwise appear preserved as imaged. No focal abnormality or radiopaque foreign body is seen in the surrounding soft tissues. RAD/Foot min 3 Views IMPRESSION: No acute osseous abnormality identified in the foot. at 3555 Reported and signed by: Wilmer Henderson MD Electronically Signed: Wilmer Henderson MD at 4:32 EDT Tel , Service support ,
--- NOTE | 2020-07-24 04:08 | ED.VISSUMM ---
- ER Visit Summary Date of Service: 07/24/20 Chief Complaint: Left foot and ankle pain History of Present Illness: The patient is a 35 M who presents with pain in his left foot and ankle that began tonight. Patient states he was walking and stepped in a hole. Patient twisted his ankle and foot. Patient states the pain is constant dull and aching but sharp at times. Patient states nothing makes it better and nothing makes it worse. Patient denies any paresthesias or weakness. Patient denies any head injury or loss of consciousness. Patient denies any other injuries. Physical Examination: Vital signs are stable. Patient is afebrile. Patient is in no acute distress. Musculoskeletal exam reveals tenderness over the lateral aspect of the left ankle. There is no edema or ecchymosis. There is no deformity noted. There is also some mild tenderness over the fifth metatarsal. There is no tenderness over the proximal fibula. Range of motion was slightly limited in all motions of the left ankle secondary to pain. Sensation was intact to light touch in all digits. Posterior tibial pulses are equal bilaterally. Test Results: X-rays of the left ankle were obtained. There are 3 views. On my interpretation, there is no acute fracture. There is no dislocation. There is no soft tissue swelling. Radiologist also interpreted the x-rays and agrees. X-rays of the left foot were obtained. There are 3 views. On my interpretation, there is no acute fracture. There is no dislocation. There is no soft tissue swelling. Radiologist also interpreted the x-rays and agrees. Emergency Department Course and Treatment: Patient was advised of his findings. Patient was instructed to ice and elevate the left ankle. Patient was instructed to take Tylenol as needed for pain. Patient was instructed to follow-up with his primary care physician in 5 to 7 days. Patient understood and was agreeable with the plan. All questions were answered. Disposition: Discharge home Impression: 1. Left ankle sprain This note was generated with [employer] dictation software. It may contain incorrect words, spelling, and punctuation that were not noted in review of the chart prior to signing ED Disposition - Plan for ED Patient: Disposition: Home or Assisted Living Diagnosis: Mild sprain of left ankle Instructions: ED Sprain Ankle W X Ray Referrals: En Boone YARN MERCERIZER OPERATOR HELPER, YARN MERCERIZER OPERATOR HELPER-C [Primary Care Provider] - 3-5 Days
== END 2020-07-24 04:51 | disposition home or self-care (01) ==
PROVIDERS: Emergency Provider Emergency Medicine; PCP Nurse Practitioner Family
DX: S93.402A Sprain of unspecified ligament of left ankle, initial encounter (principal); X50.1XXA Overexertion from prolonged static or awkward postures, initial encounter; Y93.01 Activity, walking, marching and hiking; Y92.9 Unspecified place or not applicable; Y99.9 Unspecified external cause status; Z72.0 Tobacco use
CPT/HCPCS: 73610; 73630; 99283

== ENCOUNTER 2020-10-31 21:58 | Emergency (ER) | payer MEDICAID, SELFPAY ==
[2020-10-31 22:00] VITALS: BP 105/64; PULSE 77; RESP 14; TEMP 36.2; O2SAT 97; BMI 22.7
--- NOTE | 2020-10-31 22:16 | EX.ED.GENINJ ---
HPI History of Present Illness Chief Complaint: Bite Informant: patient Narrative Narrative: Patient is a 35-year-old male who presents to the emergency department for what he believes was a bite to his anterior chest. He first noticed this 3 or 4 days ago. He states he was camping. The area has become very red and tender. He has had these before in the past that has come to ahead and started draining. He is never required them to be incised. He does not know of any history of MRSA. Patient has another spot starting just lateral to his right nipple as well. He denies any fevers or chills. No nausea/vomiting. No chest pain or shortness of breath. He has not been doing a thing for this. Patient denies any IV drug abuse to me. Reviewing his past medical history does have a history of methamphetamine abuse. [facility] Medical History (Updated 10/31/20 @ 22:[address] Sushil Landa DO) Anxiety Home Medications trazodone 50 mg tablet 50 mg PO QHS PRN #14 tab 08/07/20 [Rx Last Taken Unknown] buspirone 10 mg tablet 10 mg PO BID #60 tab 10/20/20 [Rx Last Taken Unknown] cephalexin 500 mg PO Q6 7 Days #28 capsule 10/31/20 [Rx Last Taken Unknown] sulfamethoxazole-trimethoprim [Bactrim DS] 1 tab PO BID 7 Days #14 tab 10/31/20 [Rx Last Taken Unknown] Allergy/AdvReac Type Severity Reaction Status Date / Time No Known Allergies Allergy Verified 10/31/20 21:59 Family History Mother Sleep apnea Depression Father Prostate cancer Grandfather Prostate cancer Surgical History No history of previous surgery Social History Smoking Status: Current every day smoker tobacco type: cigarettes alcohol intake: former year quit: 2019 substance use type: former substance user Date of last use: 02/20/2019 what type of physical activity do you participate in: weight training frequency: 1-2 times per week ROS ROS ED Constitutional Constitutional ED: Denies chills or fever(s) Eyes Eyes: Denies change in vision ENT ENT ED: Denies epistaxis or rhinorrhea Cardiovascular Cardiovascular: Denies chest pain or palpitations Respiratory/Chest Respiratory/Chest: Denies cough, dyspnea or dyspnea on exertion Gastrointestinal Gastrointestinal: Denies abdominal pain, diarrhea, nausea or vomiting Musculoskeletal Musculoskeletal: Denies back pain or neck pain Integumentary Reports rash Neurologic Neurologic: Denies dizziness, headache(s) or weakness EXAM Physical Exam Const Vital Signs: 10/31/20 22:00 Temperature 97.1 F L Temperature Source Temporal Pulse Rate 77 Respiratory Rate 14 Blood Pressure 105/64 Blood Pressure Mean 77 Pulse Ox 97 Oxygen Delivery Method Room Air Positive well nourished and well developed General Appearance ED: well developed and NAD HEENT Reports normocephalic and head/scalp atraumatic Eyes PERRL and EOMs intact bilaterally Neck supple Chest Wall inspection of chest normal Resp normal respiratory effort and clear to auscultation bilaterally Auscultation: Negative for rales, rhonchi or wheezes Cardio regular rate, regular rhythm and no murmurs GI normal to inspection, nondistended, normoactive bowel sounds and non-tender Palpation: soft; Negative for guarding or rebound tenderness present Extremity normal to inspection General Extremety ED: Negative for edema or tenderness General Extremity: Negative for edema Neuro oriented x3, CN's II-XII intact bilaterally and no sensory deficits noted Sensorium / Orientation: alert Motor Exam: strength 5/5 throughout Psych mental status grossly normal Skin Skin Narrative: Approximately 3 cm area of erythema, warmth and induration over right pec. There is a smaller area of erythema and warmth to the lateral right nipple. No fluctuating abscess present. No streaking surrounding the site. No crepitus or skin sloughing. MDM MDM MDM Narrative Medical decision making narrative: Patient presents to the emergency department for rash to his chest. He believes he got bit by something but never saw anything. He does have a cellulitis on exam with no obvious drainable abscess. Will place patient on antibiotic. Otherwise is no signs of sepsis. Return precautions are reviewed with him. He otherwise is 10 his PCP. He understands and is agreeable this plan. All questions were answered. Discharge Plan Triage Chief Complaint: Bite ED Provider: Sushil Landa Dx/Rx/DC Orders Clinical Impression: Cellulitis of chest wall Instructions: ED Cellulitis Prescriptions: New cephalexin 500 mg capsule 500 mg PO Q6 7 Days Qty: 28 RF: 0 sulfamethoxazole-trimethoprim [Bactrim DS] 800-160 mg tablet 1 tab PO BID 7 Days Qty: 14 RF: 0 No Action trazodone 50 mg tablet 50 mg PO QHS PRN (Reason: insomnia) Qty: 14 RF: 0 buspirone 10 mg tablet 10 mg PO BID Qty: 60 RF: 0 Primary Care Provider: En Boone NP Referrals: En Boone NP, SUPERVISOR FIBERGLASS BOAT ASSEMBLY-C [Primary Care Provider] - 3-5 Days if not improving Disposition Disposition: Home, Self Care Discharge Date/Time: 10/31/20 22:30
[2020-10-31] MEDS: Cephalexin 250 MG Capsule 500 MG PO (22:28)
[2020-10-31] MEDS: Smz/Tmp Ds Tablet 1 TABLET PO (22:28)
== END 2020-10-31 22:30 | disposition home or self-care (01) ==
PROVIDERS: Emergency Provider Emergency Medicine; PCP Nurse Practitioner Family
DX: L03.313 Cellulitis of chest wall (principal); F17.210 Nicotine dependence, cigarettes, uncomplicated
CPT/HCPCS: 99283

== ENCOUNTER 2020-11-07 09:52 | Emergency (ER) | payer MEDICAID, SELFPAY ==
[2020-11-07 09:52] VITALS: BP 117/78; PULSE 75; RESP 16; TEMP 36.6; O2SAT 98; BMI 23.7
--- NOTE | 2020-11-07 10:03 | RAD_ITS ---
INDICATION: injury EXAMINATION/TECHNIQUE: X-RAY - LEFT XR Tibia/Fibula 2 Views 4 VIEWS COMPARISON: None. FINDINGS: Studies of the right tibia and fibula in 2 projections shows no evidence of fracture, dislocation, or bony destruction. RAD/Tibia & Fibula 2 Views IMPRESSION: Normal right tibia and fibula Electronically Signed: Jules Collins DO at 10:35 EDT Tel , Service support ,
--- NOTE | 2020-11-07 10:09 | EDS_ITS ---
HPI History of Present Illness Chief Complaint: Lower Extremity Injury Informant: patient Narrative Narrative: 35-year-old male states that just prior to arrival he was using a sledgehammer to knock down some industrial shelves when the sledgehammer came down and struck him in his left garcia. He notes immediate swelling. He notes pain with walking. States that he is a recovering addict and does not wish any narcotics. [facility] Medical History Anxiety Home Medications trazodone 50 mg tablet 50 mg PO QHS PRN #14 tab 08/07/20 [Rx Last Taken Unknown] buspirone 10 mg tablet 10 mg PO BID #60 tab 10/20/20 [Rx Last Taken Unknown] cephalexin 500 mg PO Q6 7 Days #28 capsule 10/31/20 [Rx Last Taken Unknown] sulfamethoxazole-trimethoprim [Bactrim DS] 1 tab PO BID 7 Days #14 tab 10/31/20 [Rx Last Taken Unknown] Allergy/AdvReac Type Severity Reaction Status Date / Time No Known Allergies Allergy Verified 10/31/20 21:59 Family History Mother Sleep apnea Depression Father Prostate cancer Grandfather Prostate cancer Surgical History No history of previous surgery Social History Smoking Status: Current every day smoker tobacco type: cigarettes alcohol intake: former year quit: 2019 substance use type: former substance user Date of last use: 02/20/2019 what type of physical activity do you participate in: weight training frequency: 1-2 times per week ROS ROS ED Constitutional Constitutional ED: Denies chills or weight loss Eyes Eyes: Denies change in vision or diplopia ENT ENT ED: Denies ear pain, rhinorrhea or sore throat Cardiovascular Cardiovascular: Denies chest pain, orthopnea, palpitations or racing heartbeat Respiratory/Chest Respiratory/Chest: Denies cough, dyspnea or orthopnea Gastrointestinal Gastrointestinal: Denies abdominal pain, diarrhea, nausea or vomiting Genitourinary Genitourinary ED: Denies dysuria, hematuria or urinary frequency Musculoskeletal Musculoskeletal: Reports other Details: See history of present illness ; Denies arthralgias or myalgias Integumentary Denies abscess or rash Neurologic Neurologic: Denies headache(s) or weakness Psychiatric Psychiatric: Denies anxiety, depression, suicidal ideation or suicidal thoughts Endocrine Endocrinology: Denies polydipsia, polyphagia or polyuria Allergic/Immunologic Allergic/Immunologic ED: Denies mouth swelling, tongue swelling or urticaria EXAM Physical Exam Const Vital Signs: 11/07/20 09:52 Temperature 97.8 F Temperature Source Temporal Pulse Rate 75 Respiratory Rate 16 Blood Pressure 117/78 Blood Pressure Mean 91 Pulse Ox 98 Oxygen Delivery Method Room Air Positive well nourished and well developed General Appearance ED: well developed HEENT Reports normocephalic, head/scalp atraumatic and moist mucous membranes Eyes PERRL and EOMs intact bilaterally Neck no lymphadenopathy, supple and no JVD Resp normal respiratory effort and clear to auscultation bilaterally Cardio regular rate, regular rhythm and no murmurs GI normal to inspection, nondistended, normoactive bowel sounds and non-tender Palpation: soft Back/Spine no CVA tenderness and normal ROM Extremity Extremity Narrative: Located over the anterior distal garcia is a hematoma superficial abrasion. Area is tender to palpation. No obvious deformity. General Extremety ED: Negative for edema General Extremity: Negative for edema Neuro oriented x3 and CN's II-XII intact bilaterally Sensorium / Orientation: alert Motor Exam: strength 5/5 throughout Psych mental status grossly normal Mood & Affect: Negative for depressed or tearful Skin no rashes or lesions noted and no wounds MDM MDM MDM Narrative Medical decision making narrative: Patient received a dose of Motrin and ice was applied. My interpretation of the plain films of the left tib-fib is no acute fracture noted. Soft tissue swelling is seen. Patient will be discharged home with supportive care return if worsening or concerns Discharge Plan Triage Chief Complaint: Lower Extremity Injury ED Provider: Rico Bob Dx/Rx/DC Orders Clinical Impression: Hematoma of left lower leg Instructions: Bone Contusion Prescriptions: No Action cephalexin 500 mg capsule 500 mg PO Q6 7 Days Qty: 28 RF: 0 sulfamethoxazole-trimethoprim [Bactrim DS] 800-160 mg tablet 1 tab PO BID 7 Days Qty: 14 RF: 0 trazodone 50 mg tablet 50 mg PO QHS PRN (Reason: insomnia) Qty: 14 RF: 0 buspirone 10 mg tablet 10 mg PO BID Qty: 60 RF: 0 Primary Care Provider: En Boone NP Referrals: En Boone NP, SR. PAYROLL PROCESSOR-C [Primary Care Provider] - As Needed
[2020-11-07] MEDS: Ibuprofen 400 MG Tablet 800 MG PO (10:37)
[2020-11-07 10:41] VITALS: RESP 16
== END 2020-11-07 10:42 | disposition home or self-care (01) ==
LOC: ED 10:22
PROVIDERS: Emergency Provider Emergency Medicine; PCP Nurse Practitioner Family
DX: S80.12XA Contusion of left lower leg, initial encounter (principal); W22.8XXA Striking against or struck by other objects, initial encounter; Y93.89 Activity, other specified; Y92.9 Unspecified place or not applicable; Y99.9 Unspecified external cause status; F41.9 Anxiety disorder, unspecified; F17.210 Nicotine dependence, cigarettes, uncomplicated; Z79.899 Other long term (current) drug therapy
CPT/HCPCS: 73590; 99283

== ENCOUNTER 2021-01-25 04:22 | Emergency (ER) | payer OTHER, MEDICAID, SELFPAY ==
[2021-01-25 04:23] VITALS: BP 116/75; PULSE 66; RESP 16; TEMP 36.6; O2SAT 100; BMI 21.9
--- NOTE | 2021-01-25 05:03 | EX.ED.UPPERE ---
HPI History of Present Illness HPI Narrative: Patient presents with laceration to his right thumb that occurred today. Patient states he was at work and was trying to loosen a band. Patient states that slipped and cut his right thumb. Patient states his pain is throbbing. Patient dates nothing makes his pain better or worse. Patient denies any paresthesias or weakness. Patient states his last tetanus was within 5 years. Patient denies any other injuries. Chief Complaint: Laceration Informant: patient Occured/Mechanism Mechanism/Context: Yes work related Onset/Context/Timing Onset: Today Context: Sudden Onset Timing: Continuous Quality of Pain: Throbbing Location: Right thumb Worsened by: Nothing Relieved by: Nothing Associated Symptoms Associated Symptoms: Negative for Parasthesia, Weakness and Loss of Funtion Narrative Tetanus Immunization: <5 years [facility] Medical History Anxiety Home Medications NK 01/25/21 [History Last Taken Unknown] Allergy/AdvReac Type Severity Reaction Status Date / Time No Known Allergies Allergy Verified 01/25/21 04:30 Family History Mother Sleep apnea Depression Father Prostate cancer Grandfather Prostate cancer Surgical History No history of previous surgery Social History Smoking Status: Current every day smoker tobacco type: cigarettes alcohol intake: former year quit: 2019 substance use type: former substance user Date of last use: 02/20/2019 what type of physical activity do you participate in: weight training frequency: 1-2 times per week ROS ROS ED Constitutional Constitutional ED: Denies chills or fever(s) Eyes Eyes: Denies blurry vision or change in vision ENT ENT ED: Denies rhinorrhea or sore throat Cardiovascular Cardiovascular: Denies chest pain or palpitations Respiratory/Chest Respiratory/Chest: Denies cough or dyspnea Gastrointestinal Gastrointestinal: Denies nausea or vomiting Genitourinary Genitourinary ED: Denies dysuria or hematuria Musculoskeletal Musculoskeletal: Denies back pain or neck pain Integumentary Denies abscess or rash Neurologic Neurologic: Denies headache(s) or weakness Allergic/Immunologic Allergic/Immunologic ED: Denies mouth swelling or urticaria EXAM Physical Exam Const Vital Signs: 01/25/21 04:23 Temperature 97.8 F Temperature Source Temporal Pulse Rate 66 Respiratory Rate 16 Blood Pressure 116/75 Blood Pressure Mean 88 Pulse Ox 100 Oxygen Delivery Method Room Air Positive well nourished and well developed General Appearance ED: well developed HEENT Reports moist mucous membranes Neck full ROM Extremity full ROM Neuro oriented x3, CN's II-XII intact bilaterally, moves all extremities, no focal motor deficits and no sensory deficits noted Sensorium / Orientation: alert Psych mental status grossly normal Skin Trauma: laceration flap, No pulsatile bleeding, No foreign body present, involves subcutaneous tissue, No involves muscle tissue, motor nerve function intact and sensation intact MDM MDM MDM Narrative Medical decision making narrative: Patient was advised that he needed laceration to be sutured. Patient was advised that Dermabond would not fix the laceration based on the site of the laceration and the depth of the laceration. Since it is over the proximal phalanx of the thumb, it would continue to open up even if the glue was placed on the area. Patient did not want to wait for this. Patient left the emergency department prior to having sutures. Patient told staff he was going to [facility] to get superglue to put on the wound. Patient did not wait for discharge instructions. Discharge Plan Triage Chief Complaint: Laceration ED Provider: Thomas Jenkins Dx/Rx/DC Orders Clinical Impression: Laceration of right thumb Prescriptions: No Action NK RF: 0 Primary Care Provider: En Boone NP Referrals: En Boone NP, [facility] [Primary Care Provider] - Disposition Disposition: Elopement
--- NOTE | 2021-01-25 06:30 | ED.RN ---
patient states he does not want to wait anymore. states he will go to [facility] and get super glue.
== END 2021-01-25 06:30 | disposition left against medical advice (07) ==
PROVIDERS: Emergency Provider Emergency Medicine; PCP Nurse Practitioner Family
DX: S61.011A Laceration without foreign body of right thumb without damage to nail, initial encounter (principal); W45.8XXA Other foreign body or object entering through skin, initial encounter; Y93.89 Activity, other specified; Y92.9 Unspecified place or not applicable; Y99.0 Civilian activity done for income or pay; F17.210 Nicotine dependence, cigarettes, uncomplicated

== ENCOUNTER → 2021-10-19 | Outpatient (CLI) | payer MEDICAID, SELFPAY ==
[2021-10-19 12:17] LABS: Absolute Lymphocyte Count 1.25 X10^3/uL (0.83-4.51); Absolute Neutrophil Count 3.9 X10^3/uL (2.0-7.7); Basophil# 0.03 X10^3/uL; Basophil% 0.5 % (0-1); Eosinophil# 0.08 X10^3/uL; Eosinophils% 1.4 % (0-5); Hemoglobin 15.6 g/dL (13.0-16.5); Lymphocyte # 1.25 X10^3/ul (0.83-4.51); Lymphocyte % 21.6 % (19-41); Mean Corp Hgb Conc 33.2 g/dL (32-36); Mean Corpuscular Hgb 31.8 pg (27.0-32.0); Mean Corpuscular Volume 95.7 fL (80-94); Mean Platelet Vol. 10.2 fl (6.2-12.0); Monocyte# 0.52 X10^3/uL; NRBC Flagged by Analyzer 0 % (0-5); Neutrophil # 3.89 X10^3/uL (2.7-7.7); Neutrophil % 67.2 % (47-70); Platelet Count 225 K/mm3 (150-450); RBC Distribution Width CV 11.8 % (11.6-14.6); RBC Distribution Width SD 41.2 fl (35.1-43.9); Red Blood Count 4.91 M/mm3 (4.6-6.2); White Blood Count 5.8 K/mm3 (4.4-11.0)
[2021-10-19 12:38] LABS: AST(SGOT) 42 U/L (15-37); Alanine Aminotransfer ALT/SGPT 93 U/L (16-61); Albumin, Serum 4.1 g/dL (3.2-5.0); Alkaline Phosphatase 76 U/L (45-117); Anion Gap 5 (5-15); BUN 14 mg/dL (7-18); BUN/Creat Ratio 15.4 RATIO (10-20); Calcium,Total 9.7 mg/dL (8.5-10.1); Chloride 106 mmol/L (98-107); Cholesterol 188 mg/dL (200); Creatinine, Serum 0.91 mg/dL (0.70-1.30); EST Glomerular Filtration Rate 99 mL/min (>60); Est Glom Filt Rate - Afr Amer 120 mL/min (>60); Globulin 4.3 g/dL (2.2-4.2); Glucose 104 mg/dL (74-106); High Density Lipoprotein 25 mg/dL; Magnesium 1.9 mg/dL (1.6-2.6); Potassium 4.7 mmol/L (3.5-5.1); Protein, Total 8.4 g/dL (6.4-8.2); Sodium Level 137 mmol/L (136-145); Triglycerides 216 mg/dL; Very Low Density Lipoprotein 43 mg/dL (5-40)
== END | disposition home or self-care (01) ==
LOC: BIMLAB 09:13
PROVIDERS: PCP Nurse Practitioner Family; Referring Provider Physician Assistant; Visit Provider Physician Assistant
DX: R53.83 Other fatigue (principal); F31.9 Bipolar disorder, unspecified; R25.2 Cramp and spasm; F41.9 Anxiety disorder, unspecified; B19.20 Unspecified viral hepatitis C without hepatic coma; R11.0 Nausea
CPT/HCPCS: 87635; 36415; 80053; 80061; 83735; 84443; 85025; U0003; U0005

== ENCOUNTER 2022-01-05 19:19 | Emergency (ER) | payer MEDICAID, SELFPAY ==
[2022-01-05 19:20] VITALS: BP 172/154; PULSE 113; RESP 19; TEMP 37.2; O2SAT 100; BMI 18.6
--- NOTE | 2022-01-05 19:29 | EX.ED.SAOD ---
HPI History of Present Illness Chief Complaint: Overdose Informant: patient Onset/Context/Timing Onset: Today Context: Sudden Onset Timing: Intermittent Quality: Unresponsive Location: Generalized Worsened by: Nothing Relieved by: Narcan Associated Symptoms Associated Symptoms: Negative for vomiting*, diarrhea*, fever*, rash*, seizure, tremor, palpatations, suicidal ideation or homicidal ideation Prehospital Treatment: Naloxone Narrative Narrative: Patient presents after overdose today. Patient thinks he injected fentanyl. Patient states he does not inject every day. EMS administered Narcan. Patient woke up after this. Patient denies any chest pain or shortness of breath. Patient denies any nausea or vomiting. Patient denies any fevers or chills. Patient denies any suicidal homicidal ideation. PFSH [facility] Medical History Anxiety Home Medications ondansetron 4 mg disintegrating tablet 4 mg PO Q8H PRN nausea and vomiting #30 tabs 10/19/21 [Rx Last Taken Unknown] trazodone 50 mg tablet 50 mg PO QHS PRN sleep #30 tabs 10/19/21 [Rx Last Taken Unknown] Allergy/AdvReac Type Severity Reaction Status Date / Time No Known Allergies Allergy Verified 10/19/21 08:33 Family History Mother Sleep apnea Depression Father Prostate cancer Grandfather Prostate cancer Surgical History No history of previous surgery Social History Smoking Status: Current every day smoker tobacco type: cigarettes alcohol intake: former year quit: 2019 substance use type: former substance user Date of last use: 02/20/2019 what type of physical activity do you participate in: weight training frequency: 1-2 times per week ROS ROS ED Constitutional Constitutional ED: Denies chills or fever(s) Eyes Eyes: Denies blurry vision or change in vision ENT ENT ED: Denies rhinorrhea or sore throat Cardiovascular Cardiovascular: Denies chest pain or palpitations Respiratory/Chest Respiratory/Chest: Denies cough or dyspnea Gastrointestinal Gastrointestinal: Denies nausea or vomiting Genitourinary Genitourinary ED: Denies dysuria or hematuria Musculoskeletal Musculoskeletal: Denies back pain or neck pain Integumentary Denies abscess or rash Neurologic Neurologic: Denies headache(s) or weakness Allergic/Immunologic Allergic/Immunologic ED: Denies mouth swelling or urticaria EXAM Physical Exam Const Vital Signs: 01/05/22 19:20 Temperature 98.9 F Temperature Source Temporal Pulse Rate 113 H Respiratory Rate 19 H Blood Pressure 172/154 H Blood Pressure Mean 160 Pulse Ox 100 Oxygen Delivery Method Room Air Positive well nourished and well developed General Appearance ED: well developed HEENT Reports moist mucous membranes Neck supple and no JVD Resp normal respiratory effort and clear to auscultation bilaterally Cardio regular rate, regular rhythm and no murmurs GI normal to inspection, nondistended, normoactive bowel sounds and non-tender Palpation: soft Extremity normal to inspection General Extremety ED: Negative for edema or tenderness General Extremity: Negative for edema Neuro oriented x3, CN's II-XII intact bilaterally and no sensory deficits noted Sensorium / Orientation: alert Motor Exam: strength 5/5 throughout Psych mental status grossly normal Skin no rashes or lesions noted Skin Narrative: There are track turpin noted in the left antecubital area. There is no evidence of any abscess. There is no edema or erythema. There is no discharge or drainage. MDM MDM MDM Narrative Medical decision making narrative: Patient was being observed here in the emergency department. Patient wanted to leave. Patient was advised that the Narcan he was given by EMS may wear off before the opiates in his system. Patient was advised that this may cause a relapse in his respiratory rate and he may stop breathing and . Patient understands this and will leave AGAINST MEDICAL ADVICE. Patient left prior to receiving discharge instructions. Discharge Plan Triage Chief Complaint: Overdose ED Provider: Thomas Jenkins Dx/Rx/DC Orders Clinical Impression: Opiate overdose, Polysubstance (including opioids) dependence with physiological dependence Instructions: ED Overdose, Opiate Prescriptions: No Action trazodone 50 mg tablet 50 mg PO QHS PRN (Reason: sleep) Qty: 30 1RF ondansetron 4 mg tablet,disintegrating 4 mg PO Q8H PRN (Reason: nausea and vomiting) Qty: 30 0RF Primary Care Provider: En Boone NP Referrals: En Boone [employer], [facility] [facility] [Primary Care Provider] - 5-7 Days [facility] [Non-Staff] - As soon as possible Disposition Disposition: Against Medical Advice
--- NOTE | 2022-01-05 19:45 | ED.RN ---
Unable to contact David Qiujena, grandfather, at patient request. Grandparents are the ones who found patient and they are aware he is here. Patient does not have his cell phone at this time.
[2022-01-05 20:23] VITALS: BP 154/98; PULSE 100; O2SAT 98
== END 2022-01-05 20:25 | disposition left against medical advice (07) ==
PROVIDERS: Emergency Provider Emergency Medicine; PCP Nurse Practitioner Family; Visit Provider Emergency Medicine
DX: T40.2X1A Poisoning by other opioids, accidental (unintentional), initial encounter (principal); F11.20 Opioid dependence, uncomplicated; R40.4 Transient alteration of awareness; F17.210 Nicotine dependence, cigarettes, uncomplicated; Z53.29 Procedure and treatment not carried out because of patient's decision for other reasons
CPT/HCPCS: 99285

== ENCOUNTER → 2022-07-17 | Outpatient (CLI) | payer MEDICAID, SELFPAY ==
[2022-07-17 13:41] LABS: Hematocrit 46.4 % (40-54); Hemoglobin 16.1 g/dL (13.0-16.5); Mean Corp Hgb Conc 34.7 g/dL (32-36); Mean Corpuscular Hgb 31.1 pg (27.0-32.0); Mean Corpuscular Volume 89.7 fL (80-94); Mean Platelet Vol. 11.1 fl (6.2-12.0); Platelet Count 188 K/mm3 (150-450); RBC Distribution Width CV 11.5 % (11.6-14.6); RBC Distribution Width SD 37.2 fl (35.1-43.9); Red Blood Count 5.17 M/mm3 (4.6-6.2); White Blood Count 6.8 K/mm3 (4.4-11.0)
[2022-07-17 13:47] LABS: International Normalized Ratio 1.1; Prothrombin Time (Protime)PT. 13.5 SECONDS (11.7-14.9)
[2022-07-17 14:16] LABS: ALB/GLOB Ratio 1.1 RATIO (0.9-2.4); AST(SGOT) 47 U/L (15-37); Alanine Aminotransfer ALT/SGPT 63 U/L (16-61); Albumin, Serum 4.2 g/dL (3.2-5.0); Alkaline Phosphatase 88 U/L (45-117); Anion Gap 4 (5-15); BUN 15 mg/dL (7-18); BUN/Creat Ratio 15.1 RATIO (10-20); Calcium,Total 9.2 mg/dL (8.5-10.1); Chloride 105 mmol/L (98-107); Creatinine, Serum 0.99 mg/dL (0.70-1.30); EST Glomerular Filtration Rate 89 mL/min (>60); Est Glom Filt Rate - Afr Amer 108 mL/min (>60); Globulin 3.9 g/dL (2.2-4.2); Glucose 125 mg/dL (74-106); Potassium 3.8 mmol/L (3.5-5.1); Protein, Total 8.1 g/dL (6.4-8.2); Sodium Level 137 mmol/L (136-145)
[2022-07-17 14:44] LABS: HIV - WCH Non-Reactive (Nonreactive); Hepatitis B Surface Antibody Reactive; Hepatitis B Surface Antigen Non-Reactive (Nonreactive)
[2022-07-19 16:09] LABS: HCV Quant. RNA PCR 419000 IU/mL (.)
[2022-07-19 16:56] LABS: HCV log 10 5.622 (.); Hepatitis A AB, Total Positive (Negative)
== END | disposition home or self-care (01) ==
PROVIDERS: PCP Nurse Practitioner Family; Referring Provider Family Medicine; Visit Provider Family Medicine
DX: B18.2 Chronic viral hepatitis C (principal)
CPT/HCPCS: 36415; 80053; 85027; 85610; 86703; 86706; 86708; 87340; 87522

== ENCOUNTER → 2022-07-25 | Outpatient (CLI) | payer MEDICAID, SELFPAY | END | disposition home or self-care (01) | PROVIDERS: PCP Nurse Practitioner Family; Referring Provider Family Medicine; Visit Provider Family Medicine | DX: B18.2 Chronic viral hepatitis C (principal) | CPT/HCPCS: 36415 ==

== ENCOUNTER → 2022-09-16 | Outpatient (CLI) | payer MEDICAID, SELFPAY ==
[2022-09-16 16:54] LABS: Mean Corpuscular Hgb 31.4 pg (27.0-32.0); Mean Corpuscular Volume 92.3 fL (80-94); Mean Platelet Vol. 10.8 fl (6.2-12.0); Platelet Count 202 K/mm3 (150-450); RBC Distribution Width CV 12.1 % (11.6-14.6); RBC Distribution Width SD 41.1 fl (35.1-43.9); Red Blood Count 5.09 M/mm3 (4.6-6.2); White Blood Count 6.6 K/mm3 (4.4-11.0)
[2022-09-16 17:02] LABS: ALB/GLOB Ratio 0.9 RATIO (0.9-2.4); AST(SGOT) 23 U/L (15-37); Alanine Aminotransfer ALT/SGPT 28 U/L (16-61); Albumin, Serum 3.7 g/dL (3.2-5.0); Alkaline Phosphatase 82 U/L (45-117); Anion Gap 3 (5-15); BUN 12 mg/dL (7-18); BUN/Creat Ratio 10.8 RATIO (10-20); Calcium,Total 9.1 mg/dL (8.5-10.1); Chloride 107 mmol/L (98-107); Creatinine, Serum 1.11 mg/dL (0.70-1.30); EST Glomerular Filtration Rate 78 mL/min (>60); Est Glom Filt Rate - Afr Amer 95 mL/min (>60); Globulin 3.9 g/dL (2.2-4.2); Glucose 88 mg/dL (74-106); Potassium 4.1 mmol/L (3.5-5.1); Protein, Total 7.6 g/dL (6.4-8.2); Sodium Level 138 mmol/L (136-145)
[2022-09-18 14:09] LABS: HCV Quant. RNA PCR HCV Not Detected IU/mL (.)
== END | disposition home or self-care (01) ==
LOC: LAB 16:06
PROVIDERS: PCP Nurse Practitioner Family; Referring Provider Family Medicine; Visit Provider Family Medicine
DX: B18.2 Chronic viral hepatitis C (principal)
CPT/HCPCS: 36415; 80053; 85027; 87522

== ENCOUNTER → 2022-10-07 | Outpatient (CLI) | payer MEDICAID, SELFPAY ==
[2022-10-07 13:36] LABS: Hematocrit 46.2 % (40-54); Hemoglobin 16.2 g/dL (13.0-16.5); Mean Corp Hgb Conc 35.1 g/dL (32-36); Mean Corpuscular Hgb 32.2 pg (27.0-32.0); Mean Corpuscular Volume 91.8 fL (80-94); Platelet Count 184 K/mm3 (150-450); RBC Distribution Width CV 11.8 % (11.6-14.6); RBC Distribution Width SD 39.7 fl (35.1-43.9); Red Blood Count 5.03 M/mm3 (4.6-6.2); White Blood Count 6.2 K/mm3 (4.4-11.0)
[2022-10-07 14:32] LABS: ALB/GLOB Ratio 0.9 RATIO (0.9-2.4); AST(SGOT) 24 U/L (15-37); Alanine Aminotransfer ALT/SGPT 26 U/L (16-61); Albumin, Serum 3.9 g/dL (3.2-5.0); Alkaline Phosphatase 80 U/L (45-117); Anion Gap 4 (5-15); BUN 14 mg/dL (7-18); BUN/Creat Ratio 14.4 RATIO (10-20); Calcium,Total 9.2 mg/dL (8.5-10.1); Chloride 103 mmol/L (98-107); Creatinine, Serum 0.97 mg/dL (0.70-1.30); EST Glomerular Filtration Rate 91 mL/min (>60); Est Glom Filt Rate - Afr Amer 110 mL/min (>60); Globulin 4.3 g/dL (2.2-4.2); Glucose 74 mg/dL (74-106); Potassium 3.7 mmol/L (3.5-5.1); Protein, Total 8.2 g/dL (6.4-8.2); Sodium Level 134 mmol/L (136-145)
[2022-10-10 20:07] LABS: HCV Quant. RNA PCR HCV Not Detected IU/mL (.)
== END | disposition home or self-care (01) ==
LOC: LAB 12:12
PROVIDERS: PCP Nurse Practitioner Family; Referring Provider Family Medicine; Visit Provider Family Medicine
DX: B18.2 Chronic viral hepatitis C (principal)
CPT/HCPCS: 36415; 80053; 85027; 87522

== ENCOUNTER → 2024-03-11 | Outpatient (CLI) | payer MEDICAID, SELFPAY ==
[2024-03-11 17:17] LABS: ALB/GLOB Ratio 1.3 RATIO (0.9-2.4); AST(SGOT) 22 U/L (15-37); Alanine Aminotransfer ALT/SGPT 18 U/L (16-61); Albumin, Serum 4.3 g/dL (3.2-5.0); Alkaline Phosphatase 61 U/L (45-117); Anion Gap 4 (5-15); BUN 13 mg/dL (7-18); BUN/Creat Ratio 14.5 RATIO (10-20); Calcium,Total 9.3 mg/dL (8.5-10.1); Chloride 107 mmol/L (98-107); EST Glomerular Filtration Rate 99 mL/min (>60); Est Glom Filt Rate - Afr Amer 120 mL/min (>60); Globulin 3.3 g/dL (2.2-4.2); Glucose 72 mg/dL (74-106); Potassium 4.1 mmol/L (3.5-5.1); Protein, Total 7.6 g/dL (6.4-8.2); Sodium Level 139 mmol/L (136-145)
[2024-03-11 17:23] LABS: Hepatitis B Surface Antibody Reactive; Hepatitis B Surface Antigen Non-Reactive (Nonreactive)
[2024-03-15 08:07] LABS: Hepatitis A AB, Total Positive (Negative)
[2024-03-15 18:07] LABS: HIV-1 RNA by PCR, Quant. < 20 copies/mL (.)
== END | disposition home or self-care (01) ==
PROVIDERS: Referring Provider Family Medicine; Visit Provider Family Medicine
DX: F11.20 Opioid dependence, uncomplicated (principal)
CPT/HCPCS: 36415; 80053; 86706; 86708; 87340; 87536; 87902